=== PATIENT | male | born 1945 | race Hispanic/Latino ===

== ENCOUNTER 2018-08-07 00:19 | Emergency (ER) | payer OTHER, MEDICAID ==
--- OUTSIDE RECORDS SUMMARY | 2018-08-07 00:22 | XMS REPORT ---
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 urinary tract symptoms Problem Essential hypertension I10 Active Problem Stage 2 chronic kidney disease N18.2 Active Problem Other chronic pain G89.29 Active Problem Dorsalgia, unspecified M54.9 Active Problem Alcohol abuse F10.10 Active Problem Essential (primary) hypertension I10 Active Assessment Osteoarthritis of knee, unspecified M17.10 Active laterality, unspecified osteoarthritis type Assessment Essential (primary) hypertension I10 Active Problem Peripheral polyneuropathy G62.9 Active Assessment 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 urinary tract symptoms Problem Osteoarthritis of knee, unspecified M17.10 Active laterality, unspecified osteoarthritis type Assessment Stage 2 chronic kidney disease N18.2 Active Problem BPH loc w urin obs/LUTS N40.1 Active Medications Medication Code Code Instructions Start End Status Dosage System Date Date Losartan [facility] 44927097463 100-25 MG Active TAKE ONE Potassium-HCTZ TABLET BY MOUTH ONCE DAILY Amlodipine [facility] 31888354006 5MG Active TAKE ONE Besylate TABLET BY MOUTH ONCE DAILY Tamsulosin HCl [facility] 31721634244 0.4 MG Active TAKE ONE CAPSULE BY MOUTH ONCE DAILY Finasteride [facility] 26622552778 5MG Active TAKE ONE TABLET BY MOUTH ONCE DAILY Belsomra [facility] [id number] 10 MG Orally Apr 12, Active 1 tablet Once a day 2018 at bedtime as needed Results No Known Results Summary Purpose eClinicalWorks Submission
--- OUTSIDE RECORDS SUMMARY | 2018-08-07 00:22 | XMS REPORT ---
:1945 Author Organization eClinicalWorks Care Team Providers Name Role Phone Monty Flower Provider Role Unavailable Allergies, Adverse Reactions, Alerts Substance Reaction Event Type Lisinopril cough Drug Allergy Problems Problem Type Condition Code Onset Dates Condition Status Problem Osteoarthritis of knee, unspecified M17.10 Active laterality, unspecified osteoarthritis type Problem Major depressive disorder with F32.9 Active single episode, remission status unspecified Problem BPH loc w urin obs/LUTS N40.1 Active Problem Alcohol abuse F10.10 Active Problem Essential (primary) hypertension I10 Active Problem Essential hypertension I10 Active Problem Primary osteoarthritis of right knee M17.11 Active Problem Psychophysiological insomnia F51.04 Active Problem Other chronic pain G89.29 Active Problem Dorsalgia, unspecified M54.9 Active Assessment BPH loc w urin obs/LUTS N40.1 Active Assessment Essential hypertension I10 Active Assessment Psychophysiological insomnia F51.04 Active Problem 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 urinary tract symptoms Assessment Primary osteoarthritis of right knee M17.11 Active Problem Peripheral polyneuropathy G62.9 Active Medications Medication Code Code Instructions Start End Status Dosage System Date Date Amlodipine [facility] 55379538915 5MG Active TAKE ONE Besylate TABLET BY MOUTH ONCE DAILY Finasteride [facility] 16241623565 5MG Active TAKE ONE TABLET BY MOUTH ONCE DAILY Tamsulosin HCl [facility] 55094074402 0.4 MG Active TAKE ONE CAPSULE BY MOUTH ONCE DAILY Losartan [facility] 84296775117 100-25 MG Active TAKE ONE Potassium-HCTZ TABLET BY MOUTH ONCE DAILY Belsomra [facility] [id number] 10 MG Orally Apr 12, Active 1 tablet Once a day 2018 at bedtime as needed Results No Known Results Summary Purpose eClinicalWorks Submission
[2018-08-07] MEDS ORDERED: LIDOCAINE 1% W/EPI 1:100,000 MDV 50 ML VIAL ONE (01:49)
[2018-08-07] MEDS ORDERED: TETANUS & DIPHTHERIA TOX,ADULT 0.5 ML VIAL ONE (01:50)
--- NOTE | 2018-08-07 03:15 | EDPHYS ---
Physician Documentation [facility] Name: Puneet Willis Age: 73 yrs Sex: Male : 1945 Arrival Date: 08/07/2018 Time: 00:20 Bed 17 Private MD: ED Physician Froylan Juárez HPI: 08/07 03:28 This 73 yrs old Male presents to ER via EMS with complaints of Fall Injury. gs 03:28 Details of fall: The patient fell from an upright position, while standing. Onset: The gs symptoms/episode began/occurred acutely. Associated injuries: The patient sustained injury to the head, laceration, 2.5 cm(s). Severity of symptoms: At their worst the symptoms were moderate, in the emergency department the symptoms are unchanged. The patient has not experienced similar symptoms in the past. The patient has not recently seen a physician. Historical: - Allergies: 00:36 No Known Allergies; jd3 - Home Meds: 00:37 "blood pressure medication" [Active]; jd3 - PMHx: 00:36 Hypertension; Arthritis; jd3 - PSHx: 00:36 Prostate; jd3 - Immunization history:: Adult Immunizations unknown. - Social history:: Smoking status: unknown. - Ebola Screening: : Patient negative for fever greater than or equal to 101.5 degrees Fahrenheit, and additional compatible Ebola Virus Disease symptoms. ROS: 03:28 Cardiovascular: Negative for chest pain, palpitations. gs 03:28 Respiratory: Negative for pleurisy, shortness of breath. 03:28 All other systems are negative. Exam: 03:28 Eyes: Pupils equal round and reactive to light, extra-ocular motions intact. Lids and gs lashes normal. Conjunctiva and sclera are non-icteric and not injected. Cornea within normal limits. Periorbital areas with no swelling, redness, or edema. ENT: Nares patent. No nasal discharge, no septal abnormalities noted. Tympanic membranes are normal and external auditory canals are clear. Oropharynx with no redness, swelling, or masses, exudates, or evidence of obstruction, uvula midline. Mucous membranes moist. Neck: Trachea midline, no thyromegaly or masses palpated, and no cervical lymphadenopathy. Supple, full range of motion without nuchal rigidity, or vertebral point tenderness. No Meningismus. Chest/axilla: Normal chest wall appearance and motion. Nontender with no deformity. No lesions are appreciated. Cardiovascular: Regular rate and rhythm with a normal S1 and S2. No gallops, murmurs, or rubs. Normal PMI, no JVD. No pulse deficits. Respiratory: Lungs have equal breath sounds bilaterally, clear to auscultation and percussion. No rales, rhonchi or wheezes noted. No increased work of breathing, no retractions or nasal flaring. Abdomen/GI: Soft, non-tender, with normal bowel sounds. No distension or tympany. No guarding or rebound. No evidence of tenderness throughout. Skin: Warm, dry with normal turgor. Normal color with no rashes, no lesions, and no evidence of cellulitis. MS/ Extremity: Pulses equal, no cyanosis. Neurovascular intact. Full, normal range of motion. Neuro: Awake and alert, GCS 15, oriented to person, place, time, and situation. Cranial nerves II-XII grossly intact. Motor strength 5/5 in all extremities. Sensory grossly intact. Cerebellar exam normal. Normal gait. 03:28 Constitutional: The patient appears alert, awake. 03:28 Head/face: Noted is a laceration(s), that is deep, 2.5 cm(s). Vital Signs: 00:37 BP 153 / 99; Pulse 111; Resp 20 S; Temp 98.2(O); Pulse Ox 97% on R/A; Weight 90.72 kg jd3 (R); Height 5 ft. 6 in. (167.64 cm) (R); Pain 0/10; 01:47 BP 139 / 90; Pulse 97; Resp 20 S; Pulse Ox 96% on R/A; jd3 02:50 BP 135 / 95; Pulse 91; Resp 17 S; Pulse Ox 97% on R/A; jd3 03:20 BP 145 / 70; Pulse 80; Resp 19; Pulse Ox 99% ; ea 00:37 Body Mass Index 32.28 (90.72 kg, 167.64 cm) jd3 Laceration: 03:28 Wound Repair of 2.5cm ( 1.0in ) subcutaneous laceration to scalp. Distal gs neuro/vascular/tendon intact. Anesthesia: Local anesthetic administered with 3 mls of 1% lidocaine w/ Epi. Wound prep: Simple cleansing. Skin closed with 6 1-0 Kita using simple sutures and sterile technique. Patient tolerated well. MDM: 01:10 Patient medically screened. 03:28 Differential diagnosis: closed head injury, contusion, fracture, laceration. Data reviewed: vital signs, nurses notes. 08/07 00:40 Order name: CT Head C Spine gs Administered Medications: 01:45 Drug: Tetanus-Diphtheria Toxoid Adult 0.5 ml {Ground Water Technician: [employer]. Exp: jd3 09/20/2020. Lot #: [id number]. } Route: IM; Site: right deltoid; 03:20 Follow up: Response: No adverse reaction jd3 03:10 Drug: Lidocaine-Epinephrine -1%: (1:100,000) 5 ml {Note: administered by Dr. Natarajan.} jd3 Volume: 20 ml; Route: Infiltration; 03:20 Follow up: Response: No adverse reaction jd3 Disposition: 08/07/18 03:14 Discharged to Home. Impression: Laceration without foreign body of unspecified part of head, Laceration without foreign body of other part of head. - Condition is Stable. - Discharge Instructions: Laceration Care, Adult, [id number]. - Medication Reconciliation Form, Thank You Letter, Antibiotic Education, Prescription Opioid Use form. - Follow up: Private Physician; When: 7 - 10 days; Reason: Staple/Suture removal. Signatures: Dispatcher [employer] Kavitha Dougherty RN Froylan Rivera ea, MD MD gs Davies, Jonathon, RN RN jd3 Corrections: (The following items were deleted from the chart) 03:40 03:14 08/07/2018 03:14 Discharged to Home. Impression: Laceration without foreign body ea of unspecified part of head; Laceration without foreign body of other part of head. Condition is Stable. Forms are Medication Reconciliation Form, Thank You Letter, Antibiotic Education, Prescription Opioid Use. Follow up: Private Physician; When: 7 - 10 days; Reason: Staple/Suture removal. gs
--- NOTE | 2018-08-07 03:15 | ER ---
Nurse's Notes [facility] Name: Puneet Willis Age: 73 yrs Sex: Male : 1945 Arrival Date: 08/07/2018 Time: 00:20 Bed 17 Private MD: Diagnosis: Laceration without foreign body of unspecified part of head;Laceration without foreign body of other part of head Presentation: 08/07 00:34 Presenting complaint: EMS states: "He was getting food in the kitchen when he fell and jd3 hit the back of this head. No LOC or blood thinners.". Transition of care: patient was not received from another setting of care. Onset of symptoms was August 07, 2018. Risk Assessment: Do you want to hurt yourself or someone else? Patient reports no desire to harm self or others. Initial Sepsis Screen: Does the patient meet any 2 criteria? No. Patient's initial sepsis screen is negative. Does the patient have a suspected source of infection? No. Patient's initial sepsis screen is negative. Care prior to arrival: None. 00:34 Method Of Arrival: EMS: [facility] jd3 00:34 Acuity: MICHAELA 3 jd3 Historical: - Allergies: 00:36 No Known Allergies; jd3 - Home Meds: 00:37 "blood pressure medication" [Active]; jd3 - PMHx: 00:36 Hypertension; Arthritis; jd3 - PSHx: 00:36 Prostate; jd3 - Immunization history:: Adult Immunizations unknown. - Social history:: Smoking status: unknown. - Ebola Screening: : Patient negative for fever greater than or equal to 101.5 degrees Fahrenheit, and additional compatible Ebola Virus Disease symptoms. Screenin:40 Abuse screen: Denies threats or abuse. Nutritional screening: No deficits noted. jd3 Tuberculosis screening: No symptoms or risk factors identified. Fall Risk Fall in past 12 months (25 points). Ambulatory Aid- None/Bed Rest/Nurse Assist (0 pts). Gait- Normal/Bed Rest/Wheelchair (0 pts) Mental Status- Oriented to own ability (0 pts). Total Conde Fall Scale indicates Low Risk Score (25-44 pts). Fall prevention measures have been instituted. Side Rails Up X 2 Placed close to Nursing Station Frequent Obs/Assesments occuring. Assessment: 00:38 General: Appears in no apparent distress. uncomfortable, Behavior is calm, cooperative, jd3 appropriate for age. Pain: Denies pain. Neuro: Level of Consciousness is awake, alert, obeys commands, Oriented to person, place, time, situation. Cardiovascular: Capillary refill < 3 seconds Patient's skin is warm and dry. Respiratory: Airway is patent Respiratory effort is even, unlabored, Respiratory pattern is regular, symmetrical. GI: No signs and/or symptoms were reported involving the gastrointestinal system. : No signs and/or symptoms were reported regarding the genitourinary system. EENT: No signs and/or symptoms were reported regarding the EENT system. Derm: Skin is intact, Skin is dry, Skin is normal, Skin temperature is warm. Musculoskeletal: Circulation, motion, and sensation intact. Range of motion: intact in all extremities. Injury Description: Laceration sustained to left parietal area is 2.6 to 7.5 cm long, not bleeding, a small amount of bleeding noted at this time. 01:47 Reassessment: Patient appears in no apparent distress at this time. Patient and/or jd3 family updated on plan of care and expected duration. Pain level reassessed. Patient is alert, oriented x 3, equal unlabored respirations, skin warm/dry/pink. 02:50 Reassessment: Patient appears in no apparent distress at this time. Patient and/or jd3 family updated on plan of care and expected duration. Pain level reassessed. Patient is alert, oriented x 3, equal unlabored respirations, skin warm/dry/pink. 03:36 Reassessment: Patient and/or family updated on plan of care and expected duration. Pain ea level reassessed. Patient is alert, oriented x 3, equal unlabored respirations, skin warm/dry/pink. Discharge instructions given to patient, verbalized the understanding of instruction. Patient states symptoms have improved. Vital Signs: 00:37 BP 153 / 99; Pulse 111; Resp 20 S; Temp 98.2(O); Pulse Ox 97% on R/A; Weight 90.72 kg jd3 (R); Height 5 ft. 6 in. (167.64 cm) (R); Pain 0/10; 01:47 BP 139 / 90; Pulse 97; Resp 20 S; Pulse Ox 96% on R/A; jd3 02:50 BP 135 / 95; Pulse 91; Resp 17 S; Pulse Ox 97% on R/A; jd3 03:20 BP 145 / 70; Pulse 80; Resp 19; Pulse Ox 99% ; ea 00:37 Body Mass Index 32.28 (90.72 kg, 167.64 cm) jd3 ED Course: 00:20 Patient arrived in ED. ds1 00:23 Chema Fletcher RN is Primary Nurse. jd3 00:35 Triage completed. jd3 00:38 Arm band placed on. jd3 00:40 Froylan Juárez MD is Attending Physician. gs 00:41 Patient has correct armband on for positive identification. Bed in low position. Call j light in reach. Side rails up X2. 01:[address] via stretcher. kw1 01:32 CT Head C Spine In Process Unspecified. EDMS 01:34 CT completed. Patient tolerated procedure well. Patient moved back from CT. kw1 02:30 Assist provider with laceration repair on back of head that was between 2.6 to 7.5 cm ea using sutures. Set up tray. Performed by Chema Fletcher RN Dressed with Neosporin, Patient tolerated well. 03:37 Patient did not have IV access during this emergency room visit. ea Administered Medications: 01:45 Drug: Tetanus-Diphtheria Toxoid Adult 0.5 ml {Powder Worker: [employer]. Exp: jd3 09/20/2020. Lot #: [id number]. } Route: IM; Site: right deltoid; 03:20 Follow up: Response: No adverse reaction jd3 03:10 Drug: Lidocaine-Epinephrine -1%: (1:100,000) 5 ml {Note: administered by Dr. Juárez..} jd3 Volume: 20 ml; Route: Infiltration; 03:20 Follow up: Response: No adverse reaction jd3 Outcome: 03:14 Discharge ordered by . aruna 03:37 Discharged to home via wheelchair, with friend. ea 03:37 Condition: improved 03:37 Discharge instructions given to patient, Instructed on discharge instructions, follow up and referral plans. Demonstrated understanding of instructions, follow-up care. 03:40 Patient left the ED. ea Signatures: Dispatcher [facility] Cuca Nicole ds1 Kavitha Hassan RN RN ea Starr, Gregory, MD MD gs Davies, Jonathon, RN RN jd3 Kelly Carrera kw1 Corrections: (The following items were deleted from the chart) 03:40 03:39 BP 145 / 70; Pulse 80bpm; Resp 19bpm; Pulse Ox 99%; ea ea
[2018-08-07 04:22] VITALS: TEMP 98.2
[2018-08-07 04:26] VITALS: BP 145/70; O2SAT 99
--- NOTE | 2018-08-07 08:40 | RAD REPORT ---
EXAM DESCRIPTION: CT - [id number] - 08/07/2018 7:28 am CLINICAL HISTORY: Fall, head and neck injury A preliminary report was provided at the time of the study and reviewed prior to final report. COMPARISON: None. TECHNIQUE: Axial 5 mm thick images of the head were obtained. Axial 2 mm thick images of the cervic al spine were obtained with sagittal and coronal reconstruction images generated and reviewed. All CT scans are performed using dose optimization technique as appropriate and may include automated exposure control or mA/KV adjustment according to patient size. FINDINGS: No intracranial hemorrhage, mass, edema or acute intracranial finding. No cortical edema or sulcal ef facement. No extra-axial fluid collections. Mastoid air cells and paranasal sinuses are clear. No dunia be or orbit abnormality seen. Postsurgical changes are noted to the right frontal bone. Patient has u nderlying moderate severity atrophy and chronic ischemic change. Ventricles are in proportion to the volume loss. Cervical body height and alignment are normal. Mild disc space narrowing throughout the cervical spin e. Endplate spurring and uncovertebral joint hypertrophy are present. No fracture or acute bony abnor mality. Prominent facet joint degenerative changes are present. Mild foraminal encroachment at C4-5. No paraspinal mass or hematoma. IMPRESSION: Prominent atrophy and chronic ischemic change without an acute intracranial finding. Cervical spine degenerative change without fracture or acute finding.
== END 2018-08-07 03:40 | disposition home or self-care (01) ==
LOC: ER 00:19
PROC: 0JQ00ZZ Repair Scalp Subcutaneous Tissue and Fascia, Open Approach (ICD-10-PCS; principal; 2018-08-07)
DX: S01.01XA Laceration without foreign body of scalp, initial encounter (principal); I10 Essential (primary) hypertension; W01.0XXA Fall on same level from slipping, tripping and stumbling without subsequent striking against object, initial encounter; Y92.000 Kitchen of unspecified non-institutional (private) residence as the place of occurrence of the external cause; Z23 Encounter for immunization
CPT/HCPCS: 70450; 72125; 90714; 99284

== ENCOUNTER 2019-04-28 09:37 | Emergency (ER) | payer OTHER ==
--- OUTSIDE RECORDS SUMMARY | 2019-04-28 09:40 | XMS REPORT ---
:1945 Author Organization eClinicalWorks Care Team Providers Name Role Phone Monty Flower Provider Role Unavailable Allergies No Known Allergies Problems Problem Type Condition Code Onset Dates Condition Status Problem Major depressive disorder with F32.9 Active single episode, remission status unspecified Problem Primary osteoarthritis of right knee M17.11 Active Problem Psychophysiological insomnia F51.04 Active Problem Peripheral polyneuropathy G62.9 Active Problem Osteoarthritis of knee, unspecified M17.10 Active laterality, unspecified osteoarthritis type Problem BPH loc w urin obs/LUTS N40.1 Active Problem 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
[2019-04-28] MEDS ORDERED: KETOROLAC 30 MG/ML INJ ONE (10:17)
[2019-04-28] MEDS ORDERED: LIDOCAINE 1% 20 ML MDV ONE (10:31)
--- NOTE | 2019-04-28 10:46 | RAD REPORT ---
EXAM DESCRIPTION: RAD - Shoulder Left 2 View - 04/28/2019 10:28 am CLINICAL HISTORY: Fall, left shoulder pain COMPARISON: None. TECHNIQUE: Internal and external rotation views of the left shoulder were obtained. FINDINGS: Humeral head has been dislocated medial and inferior to the glenoid. This is typical for a nterior dislocation. A fracture of the humerus or glenoid not evident on these images. No AC joint separation. AC joint degenerative changes are present with inferiorly directed spur. IMPRESSION: Anterior dislocation of the left humerus without identifiable fracture.
--- NOTE | 2019-04-28 10:47 | RAD REPORT ---
EXAM DESCRIPTION: RAD - Knee Left 3 View - 04/28/2019 10:28 am CLINICAL HISTORY: Fall, left knee pain COMPARISON: May 2013 FINDINGS: No fracture, dislocation or periosteal reaction.No joint effusion seen. No joint space natanael rowing. Minimal degenerative spurring changes are present along the articular margins. No significant soft tissue abnormality seen. There does appear to be some contusion or bruising in th e subcutaneous fatty tissues. IMPRESSION: Mild for age degenerative change with no acute bone or joint finding. Clinical concerns for internal derangement or occult bony injury could be further assessed with MR im aging.
--- NOTE | 2019-04-28 10:48 | RAD REPORT ---
EXAM DESCRIPTION: RAD - Knee Right 3 View - 04/28/2019 10:28 am CLINICAL HISTORY: Fall, right knee pain COMPARISON: May 2013 FINDINGS: No fracture, dislocation or periosteal reaction.No joint effusion seen. No joint space natanael rowing. Minimal for age degenerative change present. No significant soft tissue finding seen. IMPRESSION: No acute bone or joint finding. Clinical concerns for internal derangement or occult bony injury could be further assessed with MR im aging.
[2019-04-28] MEDS ORDERED: KETAMINE HCL 500 MG/5 ML VIAL ONE (10:58)
[2019-04-28] MEDS ORDERED: ONDANSETRON 4 MG/2 ML VIAL ONE (11:05)
[2019-04-28] MEDS ORDERED: NA CHLORIDE 0.9% 500 ML ONE (11:05)
--- NOTE | 2019-04-28 11:51 | ER ---
Nurse's Notes [facility] Name: Puneet Willis Age: 73 yrs Sex: Male : 1945 Arrival Date: 04/28/2019 Time: 09:43 Bed 13 Private MD: Diagnosis: Unspecified dislocation of left shoulder joint-anterior Presentation: 04/28 09:37 Presenting complaint: EMS states: Family reports that the pt. fell getting off the rb1 couch, pt. reports falling trying to walk to the bathroom. Denies LOC. C/o left shoulder pain 05/16. A \\T\\ O x 4. 09:37 Acuity: [facility] 09:37 Transition of care: patient was not received from another setting of care. Onset of rb1 symptoms was April 28, 2019. Risk Assessment: Do you want to hurt yourself or someone else? Patient reports no desire to harm self or others. Initial Sepsis Screen: Does the patient meet any 2 criteria? No. Patient's initial sepsis screen is negative. Does the patient have a suspected source of infection? No. Patient's initial sepsis screen is negative. Care prior to arrival: None. 09:37 Method Of Arrival: EMS: [facility] 09:37 Mechanism of Injury: Fall. rb1 Historical: - Allergies: 09:37 No Known Allergies; rb1 - Home Meds: 09:37 "blood pressure medication" [Active]; rb1 - PMHx: 09:37 Arthritis; Hypertension; rb1 - PSHx: 09:37 Prostate; rb1 - Immunization history:: Adult Immunizations unknown. - Social history:: Patient/guardian denies using alcohol, street drugs, The patient lives with family, Smoking status: Patient/guardian denies using tobacco. - Ebola Screening: : Patient negative for fever greater than or equal to 101.5 degrees Fahrenheit, and additional compatible Ebola Virus Disease symptoms. - Family history:: not pertinent. Screenin:37 Abuse screen: Denies threats or abuse. Nutritional screening: No deficits noted. rb1 Tuberculosis screening: No symptoms or risk factors identified. Fall risk Intervention for positive screen: ED Physician notified, instructed to call for assist when getting up, side rails up. 09:37 Fall Risk Fall in past 12 months (25 points). Secondary diagnosis (15 points) impaired rb1 mobility, No IV (0 pts). Ambulatory Aid- Crutches/Cane/Walker (15 pts). Gait- Impaired (20 pts.). Mental Status- Oriented to own ability (0 pts). Total Conde Fall Scale indicates High Risk Score (45 or more points). Fall prevention measures have been instituted. Side Rails Up X 2 Placed Close to Nursing Station 1:1 Attendant Assigned Frequent Obs/Assessments Occuring As available patient and family educated on Fall Prevention Program and Strategies. Primary Survey: 09:37 NO uncontrolled hemorrhage observed. A: The patient is alert. Airway: patent. rb1 Breathing/Chest: Respiratory pattern: regular, Respiratory effort: spontaneous, unlabored, Breath sounds: clear, Chest inspection: symmetrical rise and fall of the chest. Circulation: Pulses: palpable right radial artery and left radial artery. Skin color: pink, Skin temperature: warm, dry. Disability Alert. Exposure/Environment: All clothing and personal items were removed. Forensic evidence collection is not deemed to be indicated at this time. Items placed in patient belonging bag. There is no evidence of uncontrolled external bleeding. 10:00 Reassessment Airway Airway Patent Breathing/Chest Respiratory pattern Regular rb1 Respiratory effort Spontaneous Unlabored Chest inspection Symmetrical Circulation Pulses Palpable Color [place] Temperature Warm Disability Alert. Secondary Survey: 09:37 HEENT: No deficits noted. Gastrointestinal: No deficits noted. : No deficits noted. rb1 Musculoskeletal: Range of motion: limited in left shoulder. Assessment: 09:37 General: Appears in no apparent distress. comfortable, Behavior is calm, cooperative. rb1 Pain: Complains of pain in left shoulder Pain currently is 10 out of 10 on a pain scale. Neuro: Level of Consciousness is awake, alert, obeys commands, Oriented to person, place, time, situation. Cardiovascular: Capillary refill < 3 seconds is brisk in bilateral fingers. Respiratory: Airway is patent Respiratory effort is even, unlabored, Respiratory pattern is regular, symmetrical. GI: No signs and/or symptoms were reported involving the gastrointestinal system. : No signs and/or symptoms were reported regarding the genitourinary system. Derm: Skin is pink, warm \\T\\ dry. abrasion noted to bilateral knees. Musculoskeletal: Range of motion: limited in left shoulder. 10:30 Reassessment: Patient appears in no apparent distress at this time. No changes from rb1 previously documented assessment. 11:15 Reassessment: Patient appears in no apparent distress at this time. Patient and/or rb1 family updated on plan of care and expected duration. Pain level reassessed. Patient is alert, oriented x 3, equal unlabored respirations, skin warm/dry/pink. Preparing to sedate the pt. to do a closed reduction of the left shoulder. 12:22 Reassessment: Patient appears in no apparent distress at this time. No changes from rb1 previously documented assessment. Pt. is calling for transportation home. Vital Signs: 09:37 BP 149 / 91; Pulse 103; Resp 19; Temp 98.3(O); Pulse Ox 99% on R/A; Weight 86.18 kg rb1 (R); Height 5 ft. 7 in. (170.18 cm) (R); Pain 10/10; 11:15 BP 115 / 72; Pulse 81; Resp 28; Temp 99.4(TE); Pulse Ox 96% on R/A; rb1 11:25 Pulse 84; Resp 14; Pulse Ox 91% on R/A; rb1 11:27 BP 164 / 95; Pulse 90; Resp 27; Pulse Ox 100% on 4 lpm NC; rb1 11:32 BP 133 / 87; Pulse 84; Resp 28; Pulse Ox 99% on 4 lpm NC; rb1 11:37 BP 136 / 75; Pulse 81; Resp 28; Pulse Ox 99% on 4 lpm NC; rb1 11:42 BP 137 / 83; Pulse 81; Resp 21; Pulse Ox 99% on 4 lpm NC; rb1 11:47 BP 135 / 76; Pulse 82; Resp 21; Pulse Ox 99% on 4 lpm NC; rb1 11:52 BP 133 / 74; Pulse 79; Resp 20; Pulse Ox 99% on 4 lpm NC; rb1 11:57 BP 139 / 78; Pulse 81; Resp 20; Pulse Ox 100% on 4 lpm NC; rb1 12:30 BP 135 / 75; Pulse 89; Resp 20; Temp 98.9(O); Pulse Ox 100% on 4 lpm NC; Pain 0/10; rb1 09:37 Body Mass Index 29.76 (86.18 kg, 170.18 cm) rb1 11:25 Initiated 4 L NC rb1 Flavio Coma Score: 09:37 Eye Response: spontaneous(4). Verbal Response: oriented(5). Motor Response: obeys rb1 commands(6). Total: 15. 10:30 Eye Response: spontaneous(4). Verbal Response: oriented(5). Motor Response: obeys rb1 commands(6). Total: 15. Trauma Score (Adult): 09:37 Eye Response: spontaneous(1); Verbal Response: oriented(1); Motor Response: obeys rb1 commands(2); Systolic BP: > 89 mm Hg(4); Respiratory Rate: 10 to 29 per min(4); [place] Score: 15; Trauma Score: 12 12:00 Eye Response: spontaneous(1); Verbal Response: oriented(1); Motor Response: obeys rb1 commands(2); Systolic BP: > 89 mm Hg(4); Respiratory Rate: 10 to 29 per min(4); Flavio Score: 15; Trauma Score: 12 ED Course: 09:37 Patient has correct armband on for positive identification. Bed in low position. Call rb1 light in reach. Side rails up X2. Patient maintains SpO2 saturation greater than 95% on room air. 09:37 Warm blanket given. rb1 09:37 Arm band placed on right wrist. rb1 09:37 Patient maintains SpO2 saturation greater than 95% on room air. rb1 09:37 Thermoregulation: warm blanket given to patient. rb1 09:43 Patient arrived in ED. em 09:44 Theron Carvajal MD is Attending Physician. ma2 09:45 Karissa Falcon, SONI is Primary Nurse. rb1 09:47 Triage completed. rb1 10:30 Knee Left 3 View XRAY In Process Unspecified. EDMS 10:30 Knee Right 3 View XRAY In Process Unspecified. EDMS 10:30 Shoulder Left (2 View) XRAY In Process Unspecified. EDMS 11:13 Inserted saline lock: 22 gauge in right antecubital area, using aseptic technique. rb1 Inserted by Sean Jiménez RN. 11:49 Thien Silva MD is Referral Physician. ma2 11:57 Assist provider with reduction of left shoulder using traction, manipulation, Set up rb1 for procedure. Performed by Theron Carvajal MD Immobilized with Reduction completed using conscious sedation (see conscious sedation flow sheet) Patient tolerated Initiated the conscious sedation at 1120 and completed at 1127. Closed monitoring until 1157 when pt became fully awake and oriented. 12:13 Shoulder 1 View In Process Unspecified. EDMS Administered Medications: 10:20 Drug: TORadol 60 mg Route: IM; Site: left gluteus; rb1 10:35 Follow up: Response: No adverse reaction rb1 11:15 Drug: Zofran 4 mg Route: IVP; Site: right antecubital; rb1 11:30 Follow up: Response: No adverse reaction rb1 11:20 Drug: Ketamine 42 mg Route: IVP; Site: right antecubital; rb1 11:35 Follow up: Response: No adverse reaction rb1 11:22 Drug: Ketorolac 42 mg Route: IVP; Site: right antecubital; rb1 11:35 Follow up: Response: No adverse reaction rb1 Intake: 12:30 IV: 250ml (IV Fluid); Total: 250ml. rb1 Outcome: 11:50 Discharge ordered by . isabel 12:41 Patient left the ED. rb1 12:41 Discharged to home ambulatory, with friend. rb1 12:41 Condition: stable 12:41 Discharge instructions given to patient, Instructed on discharge instructions, follow rb1 up and referral plans. medication usage, Demonstrated understanding of instructions, follow-up care, medications, Prescriptions given X 1. Signatures: Dispatcher [employer] Quang Harrell, ORDER PROCESSING MANAGER ORDER PROCESSING MANAGER Karissa Eldridge, RN RN rb1 Theron Carvajal MD MD ma2
--- NOTE | 2019-04-28 11:52 | EDPHYS ---
Physician Documentation [facility] Name: Puneet Willis Age: 73 yrs Sex: Male : 1945 Arrival Date: 04/28/2019 Time: 09:43 Bed 13 Private MD: ED Physician Theron Carvajal HPI: 04/28 11:39 This 73 yrs old Male presents to ER via EMS with complaints of Fall Injury, ma2 Left shoulder pain. 11:39 Details of fall: The patient fell from seated position. Onset: The symptoms/episode ma2 began/occurred suddenly, 1 hour(s) ago. Associated injuries: The patient sustained left arm. Severity of symptoms: At their worst the symptoms were severe, in the emergency department the symptoms are unchanged. The patient has not experienced similar symptoms in the past. tripped and fell. Historical: - Allergies: 09:37 No Known Allergies; rb1 - Home Meds: 09:37 "blood pressure medication" [Active]; rb1 - PMHx: 09:37 Arthritis; Hypertension; rb1 - PSHx: 09:37 Prostate; rb1 - Immunization history:: Adult Immunizations unknown. - Social history:: Patient/guardian denies using alcohol, street drugs, The patient lives with family, Smoking status: Patient/guardian denies using tobacco. - Ebola Screening: : Patient negative for fever greater than or equal to 101.5 degrees Fahrenheit, and additional compatible Ebola Virus Disease symptoms. - Family history:: not pertinent. ROS: 11:39 Constitutional: Negative for fever, chills, and weight loss. ma2 11:39 All other systems are negative. Exam: 11:39 Constitutional: This is a well developed, well nourished patient who is awake, alert, ma2 and in no acute distress. Head/Face: Normocephalic, atraumatic. Eyes: Pupils equal round and reactive to light, extra-ocular motions intact. Lids and lashes normal. Conjunctiva and sclera are non-icteric and not injected. Cornea within normal limits. Periorbital areas with no swelling, redness, or edema. ENT: Nares patent. No nasal discharge, no septal abnormalities noted. Tympanic membranes are normal and external auditory canals are clear. Oropharynx with no redness, swelling, or masses, exudates, or evidence of obstruction, uvula midline. Mucous membranes moist. Neck: Trachea midline, no thyromegaly or masses palpated, and no cervical lymphadenopathy. Supple, full range of motion without nuchal rigidity, or vertebral point tenderness. No Meningismus. Chest/axilla: Normal chest wall appearance and motion. Nontender with no deformity. No lesions are appreciated. Cardiovascular: Regular rate and rhythm with a normal S1 and S2. No gallops, murmurs, or rubs. Normal PMI, no JVD. No pulse deficits. Respiratory: Lungs have equal breath sounds bilaterally, clear to auscultation and percussion. No rales, rhonchi or wheezes noted. No increased work of breathing, no retractions or nasal flaring. Abdomen/GI: Soft, non-tender, with normal bowel sounds. No distension or tympany. No guarding or rebound. No evidence of tenderness throughout. Skin: Warm, dry with normal turgor. Normal color with no rashes, no lesions, and no evidence of cellulitis. MS/ Extremity: left shoulder dislocation, pain and ttp w limited rom, otherwise Pulses equal, no cyanosis. Neurovascular intact. Full, normal range of motion at elbow, wrist and other joints Neuro: Awake and alert, GCS 15, oriented to person, place, time, and situation. Cranial nerves II-XII grossly intact. Motor strength 5/5 in all extremities. Sensory grossly intact. Cerebellar exam normal. Normal gait. Vital Signs: 09:37 BP 149 / 91; Pulse 103; Resp 19; Temp 98.3(O); Pulse Ox 99% on R/A; Weight 86.18 kg rb1 (R); Height 5 ft. 7 in. (170.18 cm) (R); Pain 10/10; 11:15 BP 115 / 72; Pulse 81; Resp 28; Temp 99.4(TE); Pulse Ox 96% on R/A; rb1 11:25 Pulse 84; Resp 14; Pulse Ox 91% on R/A; rb1 11:27 BP 164 / 95; Pulse 90; Resp 27; Pulse Ox 100% on 4 lpm NC; rb1 11:32 BP 133 / 87; Pulse 84; Resp 28; Pulse Ox 99% on 4 lpm NC; rb1 11:37 BP 136 / 75; Pulse 81; Resp 28; Pulse Ox 99% on 4 lpm NC; rb1 11:42 BP 137 / 83; Pulse 81; Resp 21; Pulse Ox 99% on 4 lpm NC; rb1 11:47 BP 135 / 76; Pulse 82; Resp 21; Pulse Ox 99% on 4 lpm NC; rb1 11:52 BP 133 / 74; Pulse 79; Resp 20; Pulse Ox 99% on 4 lpm NC; rb1 11:57 BP 139 / 78; Pulse 81; Resp 20; Pulse Ox 100% on 4 lpm NC; rb1 12:30 BP 135 / 75; Pulse 89; Resp 20; Temp 98.9(O); Pulse Ox 100% on 4 lpm NC; Pain 0/10; rb1 09:37 Body Mass Index 29.76 (86.18 kg, 170.18 cm) rb1 11:25 Initiated 4 L NC rb1 [place] Coma Score: 09:37 Eye Response: spontaneous(4). Verbal Response: oriented(5). Motor Response: obeys rb1 commands(6). Total: 15. 10:30 Eye Response: spontaneous(4). Verbal Response: oriented(5). Motor Response: obeys rb1 commands(6). Total: 15. Trauma Score (Adult): 09:37 Eye Response: spontaneous(1); Verbal Response: oriented(1); Motor Response: obeys rb1 commands(2); Systolic BP: > 89 mm Hg(4); Respiratory Rate: 10 to 29 per min(4); [place] Score: 15; Trauma Score: 12 12:00 Eye Response: spontaneous(1); Verbal Response: oriented(1); Motor Response: obeys rb1 commands(2); Systolic BP: > 89 mm Hg(4); Respiratory Rate: 10 to 29 per min(4); Flavio Score: 15; Trauma Score: 12 Procedures: 11:39 Reduction: of the left shoulder, using traction, manipulation, Immobilized with ma2 shoulder immobilizer. Patient tolerated well. Post reduction film - reveals normal alignment. Moderate sedation: Pre-procedure assessment: the patient has been NPO 2 hour(s) prior to arrival, ASA physical classification: IV - severe disease that is life threatening, Airway assessment: able to hyperextend neck, able to maintain airway, Mallampati classification of tongue size: III - uvula can be visualized, but faucial pillars and soft palate are not appreciated, Monitoring during procedure: media monitor, continuous pulse oximetry, nurse at bedside at all times, Medications employed: Ketamine, Post-procedure assessment: the patient is mildly sedated, Respiratory status: even and unlabored. MDM: 09:44 Patient medically screened. ma2 11:39 Differential diagnosis: contusion, fracture, sprain, strain. Data reviewed: vital ma2 signs, nurses notes. Counseling: I had a detailed discussion with the patient and/or guardian regarding: the historical points, exam findings, and any diagnostic results supporting the discharge/admit diagnosis, the presence of at least one elevated blood pressure reading (>120/80) during this emergency department visit, the need for outpatient follow up. Response to treatment: the patient's symptoms have resolved after treatment. 04/28 09:54 Order name: Knee Left 3 View XRAY; Complete Time: 11:32 em 04/28 09:54 Order name: Knee Right 3 View XRAY; Complete Time: 11:32 em 04/28 09:54 Order name: Shoulder Left (2 View) XRAY; Complete Time: 11:32 em 04/28 12:06 Order name: Shoulder 1 View EDMS Administered Medications: 10:20 Drug: TORadol 60 mg Route: IM; Site: left gluteus; rb1 10:35 Follow up: Response: No adverse reaction rb1 11:15 Drug: Zofran 4 mg Route: IVP; Site: right antecubital; rb1 11:30 Follow up: Response: No adverse reaction rb1 11:20 Drug: Ketamine 42 mg Route: IVP; Site: right antecubital; rb1 11:35 Follow up: Response: No adverse reaction rb1 11:22 Drug: Ketorolac 42 mg Route: IVP; Site: right antecubital; rb1 11:35 Follow up: Response: No adverse reaction rb1 Disposition: 04/28/19 11:50 Discharged to Home. Impression: Unspecified dislocation of left shoulder joint - anterior. - Condition is Stable. - Discharge Instructions: Shoulder Dislocation, [id number]. - Prescriptions for Tylenol- Codeine #3 300-30 mg Oral Tablet - take 2 tablet by ORAL route every 6 hours As needed; 30 tablet. - Medication Reconciliation Form, Thank You Letter, Antibiotic Education, Prescription Opioid Use form. - Follow up: Thien Silva; When: Tomorrow; Reason: Continuance of care. Signatures: Dispatcher [employer] EDMS Quang Olson, CAREGIVER ASSISTED LIVING CAREGIVER ASSISTED LIVING Karissa Eldridge, RN RN rb1 Theron Carvajal MD MD ma2 Corrections: (The following items were deleted from the chart) 12:03 11:33 Shoulder Left 2 View+RAD.[email or web address].[email or web address] ordered. [facility] 12:41 11:50 04/28/2019 11:50 Discharged to Home. Impression: Unspecified dislocation of left rb1 shoulder joint - anterior. Condition is Stable. Discharge Instructions: Shoulder Dislocation, [id number]. Prescriptions for Tylenol-Codeine #3 300-30 mg Oral Tablet - take 2 tablet by ORAL route every 6 hours As needed; 30 tablet. and Forms are Medication Reconciliation Form, Thank You Letter, Antibiotic Education, Prescription Opioid Use. Follow up: Thien Silva; When: Tomorrow; Reason: Continuance of care. ma2
--- NOTE | 2019-04-28 12:35 | RAD REPORT ---
EXAM DESCRIPTION: RAD - Shoulder 1 View - 04/28/2019 11:54 am FINDINGS: Single view left shoulder was obtained following reduction maneuvers. Left humeral head is properly positioned relative to the glenoid. No fracture changes seen.
[2019-04-28 12:50] VITALS: TEMP 99.4
[2019-04-28 13:01] VITALS: BP 139/78; O2SAT 100
== END 2019-04-28 12:41 | disposition home or self-care (01) ==
LOC: ER 09:37
PROC: 0RSKXZZ Reposition Left Shoulder Joint, External Approach (ICD-10-PCS; principal; 2019-04-28)
DX: S43.005A Unspecified dislocation of left shoulder joint, initial encounter (principal); W07.XXXA Fall from chair, initial encounter; Y93.9 Activity, unspecified; Y92.9 Unspecified place or not applicable; I10 Essential (primary) hypertension
CPT/HCPCS: 73020; 73030; 73562 ×2; 96375; 96372; 96374; 99285; 23655; J2405

== ENCOUNTER 2019-09-25 11:22 | Emergency (ER) | payer OTHER ==
--- OUTSIDE RECORDS SUMMARY | 2019-09-25 11:25 | XMS REPORT ---
[...] Problem Essential (primary) hypertension I10 Active Medications Medication Code Code Instructions Start End Status Dosage System Date Date Tamsulosin HCl [facility] [id number] 0.4 MG Orally Active 1 capsule Once a day Results No Known Results Summary Purpose eClinicalWorks Submission
--- NOTE | 2019-09-25 12:37 | RAD REPORT ---
EXAM DESCRIPTION: RAD - Shoulder Right 2 View - 09/25/2019 12:24 pm CLINICAL HISTORY: PAIN COMPARISON: Shoulder Right 2 View dated 07/19/2017 FINDINGS: Subcoracoid anterior dislocation of the humeral head is seen. Moderate AC joint degenerati ve changes. No acute fracture evident.
--- NOTE | 2019-09-25 12:38 | RAD REPORT ---
EXAM DESCRIPTION: RAD - Humerus Right - 09/25/2019 12:24 pm CLINICAL HISTORY: PAIN COMPARISON: Humerus Right dated 07/19/2017; Humerus Right dated 12/05/2016 FINDINGS: Subcoracoid anterior dislocation is seen involving the right humeral head. A fracture is n ot apparent.
--- NOTE | 2019-09-25 12:39 | RAD REPORT ---
EXAM DESCRIPTION: RAD - Elbow Right 3 View - 09/25/2019 12:26 pm CLINICAL HISTORY: PAIN COMPARISON: No comparisons FINDINGS: Small olecranon spur is seen. No acute fracture or dislocation evident.
[2019-09-25] MEDS ORDERED: ONDANSETRON 4 MG/2 ML VIAL ONE (12:43)
[2019-09-25] MEDS ORDERED: FENTANYL CITR 100 MCG/2 ML ONE (12:43)
[2019-09-25] MEDS ORDERED: MEPERIDINE HCL 25 MG/0.5 ML ONE (12:59)
[2019-09-25] MEDS ORDERED: LIDOCAINE 1% 20 ML MDV ONE (13:48)
--- NOTE | 2019-09-25 14:07 | RAD REPORT ---
EXAM DESCRIPTION: RAD - Shoulder Right 2 View - 09/25/2019 1:47 pm CLINICAL HISTORY: PAIN COMPARISON: Shoulder Right 2 View dated 09/25/2019 FINDINGS: Subcoracoid dislocation of the humeral head persists. AC joint degenerative changes are pr esent. A fracture not seen.
--- NOTE | 2019-09-25 14:33 | ER ---
Nurse's Notes [facility] Name: Puneet Willis Age: 74 yrs Sex: Male : 1945 Arrival Date: 09/25/2019 Time: : Bed 26 Private MD: Diagnosis: Other dislocation of right shoulder joint-reduced Presentation: 09/25 11:26 Presenting complaint: EMS states: Fell on Monday, probably from intoxication. C/O R ca1 arm pain to the R shoulder. Difficulty lifting R arm. Transition of care: patient was not received from another setting of care. Onset of symptoms was September 25, 2019. Risk Assessment: Do you want to hurt yourself or someone else? Patient reports no desire to harm self or others. Initial Sepsis Screen: Does the patient meet any 2 criteria? No. Patient's initial sepsis screen is negative. Does the patient have a suspected source of infection? No. Patient's initial sepsis screen is negative. Care prior to arrival: None. 11: Method Of Arrival: EMS: [facility] ca1 Acuity: MICHAELA 3 iw Historical: - Allergies: 11: No Known Allergies; ca1 - Home Meds: 11: amlodipine oral [Active]; tamsulosin oral oral [Active]; ca1 - PMHx: 11: Arthritis; Hypertension; ca1 - PSHx: 11: Prostate; ca1 - Immunization history:: Adult Immunizations up to date. - Coronavirus screen:: The patient has NOT traveled to [place] in the past 14 days. The patient has NOT had contact with known/suspected case of Coronavirus?. - Social history:: Smoking status: Patient denies any tobacco usage or history of. - Ebola Screening: : Patient negative for fever greater than or equal to 101.5 degrees Fahrenheit, and additional compatible Ebola Virus Disease symptoms Patient denies exposure to infectious person Patient denies travel to an Ebola-affected area in the 21 days before illness onset No symptoms or risks identified at this time. Screenin:29 Abuse screen: Denies threats or abuse. Denies injuries from another. Nutritional ca1 screening: No deficits noted. Tuberculosis screening: No symptoms or risk factors identified. Fall Risk Fall in past 12 months (25 points). Assessment: 11:29 General: Appears in no apparent distress. comfortable, Behavior is calm, cooperative, ca1 appropriate for age. Pain: Complains of pain in right arm. Neuro: Level of Consciousness is awake, alert, obeys commands, Oriented to person, place, time, situation, Appropriate for age. Derm: Skin is intact, is healthy with good turgor, Skin is pink, warm \T\ dry. Musculoskeletal: Circulation, motion, and sensation intact. Capillary refill < 3 seconds, Range of motion: limited in right shoulder. 12:30 Reassessment: Patient appears in no apparent distress at this time. No changes from ca1 previously documented assessment. Patient and/or family updated on plan of care and expected duration. Pain level reassessed. Patient is alert, oriented x 3, equal unlabored respirations, skin warm/dry/pink. 13:30 Reassessment: Patient appears in no apparent distress at this time. Patient is alert, ca1 oriented x 3, equal unlabored respirations, skin warm/dry/pink. 14:30 Reassessment: Patient appears in no apparent distress at this time. Patient is alert, ca1 oriented x 3, equal unlabored respirations, skin warm/dry/pink. Vital Signs: 11:29 BP 147 / 98; Pulse 97; Resp 19 S; Temp 97.9(O); Pulse Ox 100% on R/A; ca1 12:57 BP 126 / 67; Pulse 89; Resp 18; Pulse Ox 100% on R/A; mg2 13:26 BP 142 / 81; Pulse 80; Resp 18; Pulse Ox 96% on R/A; mg2 14:30 BP 124 / 89; Pulse 88; Resp 17 S; Pulse Ox 95% on R/A; ca1 ED Course: 11:26 Patient arrived in ED. ca1 11:28 Triage completed. ca1 11:29 Arm band placed on right wrist. ca1 11:29 Patient has correct armband on for positive identification. Bed in low position. Call ca1 light in reach. Side rails up X2. Pulse ox on. NIBP on. 11:32 [facility]C [facility]. kb 11:32 Imer Root MD is Attending Physician. kb 11:34 EKG done, by biology specimen technician. reviewed by Torie SHARMA. at1 11:57 Celeste Toscano, SONI is Primary Nurse. ca1 12:29 Humerus Right XRAY In Process Unspecified. EDMS 12:29 Shoulder Right (2 View) XRAY In Process Unspecified. EDMS 12:30 Elbow Right 3 View XRAY In Process Unspecified. EDMS 12:48 Inserted saline lock: 20 gauge in left forearm, using aseptic technique. mg2 13:27 Assist provider with reduction of right shoulder using manipulation, Set up for mg2 procedure. Performed by Imer Root MD Immobilized with sling, Patient tolerated well. 13:56 Shoulder Right (2 View) XRAY In Process Unspecified. EDMS 14:37 XRAY Shoulder RIGHT 2 view In Process Unspecified. EDMS 14:48 IV discontinued, intact, bleeding controlled, No redness/swelling at site. Pressure ca1 dressing applied. Administered Medications: 12:48 Drug: fentaNYL (PF) 50 mcg Route: IVP; Site: left forearm; mg2 13:22 Follow up: Response: No adverse reaction mg2 14:00 Follow up: Response: No adverse reaction; Pain is decreased ca1 12:48 Drug: Zofran 4 mg Route: IVP; Site: left forearm; mg2 13:22 Follow up: Response: No adverse reaction mg2 14:52 Follow up: Response: Medication administered at discharge. ca1 12:56 Drug: Demerol 25 mg Route: IVP; Site: left forearm; mg2 13:21 Follow up: Response: No adverse reaction mg2 14:52 Follow up: Response: No adverse reaction ca1 13:58 Drug: fentaNYL (PF) 50 mcg Route: IVP; Site: left forearm; mg2 14:20 Follow up: Response: No adverse reaction; Pain is decreased; RASS: Alert and Calm (0) ca1 Outcome: 14:32 Discharge ordered by . kb 14:50 Discharged to home ambulatory. ca1 14:50 Condition: stable 14:50 Discharge instructions given to patient, Pt said, his daughter is picking him up from the ER Instructed on discharge instructions, follow up and referral plans. Demonstrated understanding of instructions, follow-up care. 14:56 Patient left the ED. ca1 Signatures: Dispatcher [employer] Torie Bridges, WOOD MACHINIST APPRENTICE-C WOOD MACHINIST APPRENTICE-Maribel Montes RN RN iw Sarahy Gill, digital marketing specialist EKG Tat1 Venkata Unger RN RN mg2 Celeste Toscano RN RN ca1 Corrections: (The following items were deleted from the chart) 12:23 11:26 Acuity: MICHAELA 4 ca1 iw 13:27 11:29 No provider procedures requiring assistance completed. ca1 mg2
--- NOTE | 2019-09-25 14:34 | EDPHYS ---
Physician Documentation [facility] Name: Puneet Willis Age: 74 yrs Sex: Male : 1945 Arrival Date: 09/25/2019 Time: 11:26 Bed 26 Private MD: ED Physician Imer Root HPI: 09/25 11:46 This 74 yrs old Male presents to ER via EMS with complaints of shoulder pain. kb 11:46 The patient or guardian complains of decreased range of motion, an injury, pain, kb tenderness. right shoulder. Context: The problem was sustained at home, resulted from a fall, The patient experiences decreased range of motion, The patient notes a deformity, an anterior fullness. Onset: The symptoms/episode began/occurred 5 day(s) ago. Modifying factors: the symptoms are alleviated by nothing. The symptoms are aggravated by movement. Associated signs and symptoms: The patient has no apparent associated signs or symptoms. Severity of symptoms: At their worst the symptoms were moderate, in the emergency department the symptoms are unchanged. Treatment prior to arrival includes: no previous treatment. The patient has not experienced similar symptoms in the past. The patient has not recently seen a physician. Pt reports pain to right shoulder and upper arm that started after falling directly onto it on Monday. States he didn't want to come in, but the pain hasn't gotten any better. Historical: - Allergies: 11:29 No Known Allergies; ca1 - Home Meds: 11:29 amlodipine oral [Active]; tamsulosin oral oral [Active]; ca1 - PMHx: 11:29 Arthritis; Hypertension; ca1 - PSHx: 11:29 Prostate; ca1 - Immunization history:: Adult Immunizations up to date. - Coronavirus screen:: The patient has NOT traveled to [place] in the past 14 days. The patient has NOT had contact with known/suspected case of Coronavirus?. - Social history:: Smoking status: Patient denies any tobacco usage or history of. - Ebola Screening: : Patient negative for fever greater than or equal to 101.5 degrees Fahrenheit, and additional compatible Ebola Virus Disease symptoms Patient denies exposure to infectious person Patient denies travel to an Ebola-affected area in the 21 days before illness onset No symptoms or risks identified at this time. ROS: 11:46 Constitutional: Negative for fever, chills, and weight loss, ENT: Negative for injury, kb pain, and discharge, Neck: Negative for injury, pain, and swelling, Cardiovascular: Negative for chest pain, palpitations, and edema, Respiratory: Negative for shortness of breath, cough, wheezing, and pleuritic chest pain, Abdomen/GI: Negative for abdominal pain, nausea, vomiting, diarrhea, and constipation, Back: Negative for injury and pain, Skin: Negative for injury, rash, and discoloration, Neuro: Negative for headache, weakness, numbness, tingling, and seizure. 11:46 MS/extremity: Positive for injury or acute deformity, decreased range of motion, pain, tenderness, of the right shoulder and right arm. Exam: 11:44 Constitutional: This is a well developed, well nourished patient who is awake, alert, kb and in no acute distress. Head/Face: Normocephalic, atraumatic. Chest/axilla: Normal chest wall appearance and motion. Nontender with no deformity. No lesions are appreciated. Cardiovascular: Regular rate and rhythm with a normal S1 and S2. No gallops, murmurs, or rubs. Normal PMI, no JVD. No pulse deficits. Respiratory: Lungs have equal breath sounds bilaterally, clear to auscultation and percussion. No rales, rhonchi or wheezes noted. No increased work of breathing, no retractions or nasal flaring. Abdomen/GI: Soft, non-tender, with normal bowel sounds. No distension or tympany. No guarding or rebound. No evidence of tenderness throughout. Back: No spinal tenderness. No costovertebral tenderness. Full range of motion. Skin: Warm, dry with normal turgor. Normal color with no rashes, no lesions, and no evidence of cellulitis. Neuro: Awake and alert, GCS 15, oriented to person, place, time, and situation. Cranial nerves II-XII grossly intact. Motor strength 5/5 in all extremities. Sensory grossly intact. Cerebellar exam normal. Normal gait. 11:44 ECG was reviewed by the Attending Physician. 11:44 Musculoskeletal/extremity: Extremities: grossly normal except: noted in the right shoulder and right arm: decreased ROM, pain, tenderness, ROM: limited passive range of motion due to pain, in the right shoulder and right arm, Circulation is intact in all extremities. Sensation intact. Vital Signs: 11:29 BP 147 / 98; Pulse 97; Resp 19 S; Temp 97.9(O); Pulse Ox 100% on R/A; ca1 12:57 BP 126 / 67; Pulse 89; Resp 18; Pulse Ox 100% on R/A; mg2 13:26 BP 142 / 81; Pulse 80; Resp 18; Pulse Ox 96% on R/A; mg2 14:30 BP 124 / 89; Pulse 88; Resp 17 S; Pulse Ox 95% on R/A; ca1 Procedures: 14:24 Reduction: of the right shoulder, using traction, manipulation, Immobilized with sling, rn Patient tolerated well. Post reduction film - reveals normal alignment. Joint Treatment: injection of right shoulder using Lidocaine, 22g spinal needle. Patient tolerated well. of right shoulder 8 cc 1% lidocaine without epinephrine injected into right shoulder following betadine prep, for anesthesia preceding shoulder reduction. Time out performed for reduction of right shoulder dislocation.. MDM: 11:32 Patient medically screened. kb 11:46 Differential diagnosis: Anterior dislocation with fracture, Anterior dislocation kb without fracture, Posterior dislocation with fracture, Posterior dislocation without fracture, humeral head fracture. Data reviewed: vital signs, nurses notes, radiologic studies. 14:30 Counseling: I had a detailed discussion with the patient and/or guardian regarding: the kb historical points, exam findings, and any diagnostic results supporting the discharge/admit diagnosis, radiology results, the need for outpatient follow up, a orthopedic surgeon, to return to the emergency department if symptoms worsen or persist or if there are any questions or concerns that arise at home. 09/25 11:42 Order name: Humerus Right XRAY; Complete Time: 13:31 kb 09/25 11:42 Order name: Shoulder Right (2 View) XRAY; Complete Time: 13:31 kb 09/25 12:18 Order name: Elbow Right 3 View XRAY; Complete Time: 13:31 kb 09/25 13:19 Order name: Shoulder Right (2 View) XRAY kb 09/25 12:29 Order name: IV Start; Complete Time: 12:48 kb 09/25 13:19 Order name: Sling; Complete Time: 13:21 kb 09/25 14:03 Order name: XRAY Shoulder RIGHT 2 view rn EC:44 Rate is 86 beats/min. Rhythm is regular, Normal Sinus Rhythm. Left axis deviation kb noted. IA interval is normal at 148 msec. QRS interval is normal at 76 msec. QT interval is normal at 378 msec. Administered Medications: 12:48 Drug: fentaNYL (PF) 50 mcg Route: IVP; Site: left forearm; mg2 13:22 Follow up: Response: No adverse reaction mg2 14:00 Follow up: Response: No adverse reaction; Pain is decreased ca1 12:48 Drug: Zofran 4 mg Route: IVP; Site: left forearm; mg2 13:22 Follow up: Response: No adverse reaction mg2 14:52 Follow up: Response: Medication administered at discharge. ca1 12:56 Drug: Demerol 25 mg Route: IVP; Site: left forearm; mg2 13:21 Follow up: Response: No adverse reaction mg2 14:52 Follow up: Response: No adverse reaction ca1 13:58 Drug: fentaNYL (PF) 50 mcg Route: IVP; Site: left forearm; mg2 14:20 Follow up: Response: No adverse reaction; Pain is decreased; RASS: Alert and Calm (0) ca1 Disposition: 15:05 Co-signature as Attending Physician, Imer Root MD. rn Disposition: 09/25/19 14:32 Discharged to Home. Impression: Other dislocation of right shoulder joint - reduced. - Condition is Stable. - Discharge Instructions: Shoulder Dislocation, [id number]. - Medication Reconciliation Form, Thank You Letter, Antibiotic Education, Prescription Opioid Use form. - Follow up: Emergency Department; When: As needed; Reason: Worsening of condition. Follow up: Private Physician; When: 2 - 3 days; Reason: Recheck today's complaints, Continuance of care, Re-evaluation by your physician. Signatures: Dispatcher [employer] EDLA Torie Chacon, CENTRIFUGE OPERATOR-C CENTRIFUGE OPERATOR-CkImer Sutton MD MD rn Gardose, Michele, RN RN mg2 Celeste Toscano RN RN ca1 Corrections: (The following items were deleted from the chart) 12:25 11:43 Elbow Left 3 View+RAD.RAD.BRZ ordered. EDMS EDMS 14:12 14:03 Shoulder Right 2 View+RAD.RAD.BRZ ordered. EDLA EDMS 14:32 14:32 09/25/2019 14:32 Discharged to Home. Impression: Other dislocation of right kb shoulder joint. Condition is Stable. Forms are Medication Reconciliation Form, Thank You Letter, Antibiotic Education, Prescription Opioid Use. Follow up: Emergency Department; When: As needed; Reason: Worsening of condition. Follow up: Private Physician; When: 2 - 3 days; Reason: Recheck today's complaints, Continuance of care, Re-evaluation by your physician. kb 14:56 14:32 09/25/2019 14:32 Discharged to Home. Impression: Other dislocation of right ca1 shoulder joint - reduced. Condition is Stable. Forms are Medication Reconciliation Form, Thank You Letter, Antibiotic Education, Prescription Opioid Use. Follow up: Emergency Department; When: As needed; Reason: Worsening of condition. Follow up: Private Physician; When: 2 - 3 days; Reason: Recheck today's complaints, Continuance of care, Re-evaluation by your physician. kb
--- NOTE | 2019-09-25 14:35 | RAD REPORT ---
EXAM DESCRIPTION: RAD - Shoulder Right 2 View - 09/25/2019 2:28 pm CLINICAL HISTORY: post reduction COMPARISON: Shoulder Right 2 View dated 09/25/2019 FINDINGS: Previously noted dislocation of the humeral head has been reduced. Moderate AC joint degen erative changes. No acute fracture seen.
[2019-09-25 15:18] VITALS: TEMP 97.9
[2019-09-25 15:22] VITALS: BP 124/89; O2SAT 95
--- NOTE | 2019-09-26 11:12 | EKG ---
Test Date: 2019-09-25 Test Time: 11:34:34 Operations Research Engineer: STEPHAN MEASUREMENT RESULTS: Intervals: Rate: 86 FL: 148 QRSD: 76 QT: 378 QTc: 452 Holcomb: P: 33 FL: 148 QRS: -22 T: -8 INTERPRETIVE STATEMENTS: Normal sinus rhythm Normal ECG Compared to ECG 06/01/2015 08:44:08 No significant changes Electronically Signed On 09-26-19 11:11:14 AIRCRAFT MAINTENANCE TECHNICIAN by Roman Lee
== END 2019-09-25 14:56 | disposition home or self-care (01) ==
LOC: ER 11:22
PROC: 0RSJXZZ Reposition Right Shoulder Joint, External Approach (ICD-10-PCS; principal; 2019-09-25)
DX: S43.014A Anterior dislocation of right humerus, initial encounter (principal); W18.30XA Fall on same level, unspecified, initial encounter; Y93.9 Activity, unspecified; Y92.9 Unspecified place or not applicable
CPT/HCPCS: 93005; 73080; 73060; 73030 ×3; 96375; 96374; 99284; 23655; J3010; J2175; J2405

== ENCOUNTER 2019-12-09 09:49 | Emergency (ER) | payer OTHER, MEDICAID ==
[2019-12-09] MEDS ORDERED: HYDROCODONE/APAP 5/325 MG TAB ONE (10:16)
--- OUTSIDE RECORDS SUMMARY | 2019-12-09 10:54 | XMS REPORT ---
:1945 Author Organization eClinicalWorks Care Team Providers Name Role Phone Monty Flower Provider Role Unavailable Allergies No Known Allergies Problems Problem Type Condition Code Onset Dates Condition Statu s Problem Major depressive disorder with F32.9 Active single episode, remission status unspecified Problem Primary osteoarthritis of right knee M17.11 Active Problem Psychophysiological insomnia F51.04 Active Problem Peripheral polyneuropathy G62.9 Ac tive Problem Osteoarthritis of knee, unspecified M17.10 Active laterality, unspecified osteoarthritis type Problem BPH loc w urin obs/LUTS N40.1 Acti ve Problem 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
--- OUTSIDE RECORDS SUMMARY | 2019-12-09 10:54 | XMS REPORT ---
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 urinary tract symptoms Problem BPH loc w urin obs/LUTS N40.1 Acti ve Medications Medication Code Code Instructions Start End Status Dosage System Date Date Amlodipine [facility] 40459385953 10 MG Orally Active take one Besylate Once a day tablet by mouth once daily Tamsulosin HCl [facility] 24805333333 0.4 MG Orally January Active 1 capsule Once a day 2019 Belsomra [facility] 17606849298 10 MG Orally Apr 12, Active 1 tab let Once a day 2017 at bedtime as needed Finasteride ND 01768677481 5MG Orally Once Active 1 tablet a day Donepezil HCl ND 95768205130 10 MG Orally February 22, Active 1 tablet Once a day 2018 at bedtime Losartan ND 71587839670 100-25 MG Orally Active ta ke 1 Potassium-HCTZ Once a day tablet by mouth every day Results No Known Results Summary Purpose eClinicalWorks Submission
--- OUTSIDE RECORDS SUMMARY | 2019-12-09 10:54 | XMS REPORT ---
[...] obstruction/lower N40.0 Active urinary tract symptoms Assessment Establishing care with new doctor, Z76.89 Active encounter for Problem Essential hypertension I10 Activ e Problem Stage 2 chronic kidney disease N18.2 Active Problem Other chronic pain G89.29 Active Problem Dorsalgia, unspecified M54.9 Activ e Problem Alcohol abuse F10.10 Active Problem Essential (primary) hypertension I10 Active Assessment Psychophysiological insomnia F51.04 Active Assessment Other chronic pain G89.29 Active Assessment Edema leg R60.0 Active Assessment Cough R05 Active Problem Peripheral polyneuropathy G62.9 Ac tive Assessment Essential (primary) hypertension I10 Active Problem Osteoarthritis of knee, unspecified M17.10 Active laterality, unspecified osteoarthritis type Assessment 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 urinary tract symptoms Problem BPH loc w urin obs/LUTS N40.1 Acti ve Medications Medication Code Code Instructions Start End Status Dosage System Date Date Amlodipine [facility] 95388527231 10 MG Orally Active take one Besylate Once a day tablet by mouth once daily Finasteride [facility] 94734029795 5MG Orally Once Active 1 tablet a day Tamsulosin HCl [facility] 44727449802 0.4 MG Orally January Active 1 capsule Once a day 2019 Donepezil HCl ND 32813769663 10 MG Orally February 22, Active 1 tablet Once a day 2019 at bedtime Belsomra ND 89815610987 10 MG Orally Apr 12, Active 1 tab let Once a day 2018 at bedtime as needed Losartan [facility] 27989449312 100-25 MG Orally Active ta ke 1 Potassium-HCTZ Once a day tablet by mouth every day Results No Known Results Summary Purpose eClinicalWorks Submission
--- OUTSIDE RECORDS SUMMARY | 2019-12-09 10:54 | XMS REPORT ---
[...] Problem Essential (primary) hypertension I10 Active Problem Peripheral polyneuropathy G62.9 Ac tive Problem Osteoarthritis of knee, unspecified M17.10 Active laterality, unspecified osteoarthritis type Assessment Localized edema R60.0 Active Problem BPH loc w urin obs/LUTS N40.1 Acti ve Medications Medication Code Code Instructions Start End Status Dosage System Date Date Belsomra [facility] 58423081459 10 MG Orally Apr 12, Active 1 tab let Once a day 2017 at bedtime as needed Losartan ND 84285198451 100-25 MG Active take 1 Potassium-HCTZ Orally Once a tab let by day mouth every day Metformin HCl ND 49289976453 500 MG Orally November Active 1 tablet daily with 2019 with a dinner meal Finasteride ND 29488978076 5MG Orally Once Active 1 tablet a day Amlodipine ND 61026993808 10 MG Orally Inactive antonette e one Besylate Once a day tablet by mouth once daily Tamsulosin HCl ND 61037537030 0.4 MG Orally January Active 1 capsule Once a day 2019 Donepezil HCl ND 02600736720 10 MG Orally February 22, Active 1 tablet Once a day 2018 at bedtime Results No Known Results Summary Purpose eClinicalWorks Submission
--- OUTSIDE RECORDS SUMMARY | 2019-12-09 10:54 | XMS REPORT ---
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 disorder with single with single episode, episode, remission remission status status unspecified unspecified BPH loc w BPH loc w Problem Active urin urin obs/LUTS obs/LUTS Alcohol Alcohol Problem Active abuse abuse Essential Essential Problem Active (primary) (primary) hypertensio hypertensio n n Primary Primary Problem 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 Psychophysi Psychophysi Problem Active ological ological insomnia insomnia Other Other Problem Active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 pain pain Dorsalgia, Dorsalgia, Problem Active unspecified unspecified BPH without BPH without Problem Active obstruction obstruction /lower /lower urinary urinary tract tract symptoms symptoms 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 Clinician (SIG) Name Name Metformin Metformin 2019-0 Yes Ly 1 tablet HCl HCl 4-17 M[place]ra with a 00:00: meal 00 Donepezil Donepezil 2018-0 Yes Ly 1 tablet HCl HCl 7-19 M[place] at bedtime 00:00: 00 Belsomra Belsomra 2017-0 Yes Ly 1 tablet 9-06 Moura at bedtime 00:00: as needed 00 Amlodipine Amlodipine Yes Ly take one Besylate Besylate Moura tablet by mouth once daily Finasteride Finasteride Yes Ly 1 table t M[place] Losartan Losartan Yes Ly take 1 Potassium-H Potassium-H Moura tablet b y CTZ CTZ mouth every day Tamsulosin Tamsulosin 2019- No Ly 1 capsule HCl HCl 01-18 Moura 00:00 :00 Encounters Start End Encounter Admission Attending Care Care Encounter Date/Time Date/Time Type Type Clinicians Facility Department ID 2019-11-22 2019-11-22 [id number] 15:20:00 15:20:00 [facility] 2019-11-04 2019-11-04 [facility] [id number] 10:00:00 10:00:00 [facility] 2019-10-21 2019-10-21 [facility] [id number] 10:00:00 10:00:00 [facility] 2019-05-24 2019-05-24 [facility] [id number] 16:27:00 16:27:00 [facility] 2019-02-25 2019-02-25 [facility] [id number] 09:47:00 09:47:00 [facility] 2019-02-22 2019-02-22 [facility] [id number] 08:30:00 08:30:00 [facility] 2019-01-15 2019-01-15 [facility] [id number] 16:02:00 16:02:00 [facility] 2018-11-19 2018-11-19 [facility] [id number] 11:15:00 11:15:00 [facility] 2018-05-15 2018-05-15 [facility] [id number] 13:15:00 13:15:00 [facility] 2018-04-12 2018-04-12 [facility] [id number] 13:00:00 13:00:00 [facility]
--- NOTE | 2019-12-09 11:05 | RAD REPORT ---
EXAM DESCRIPTION: RAD - Shoulder Right 2 View - 12/09/2019 10:35 am CLINICAL HISTORY: Right shoulder pain FINDINGS: Anterior humeral head dislocation. No fracture visualized
[2019-12-09] MEDS ORDERED: FENTANYL CITR 100 MCG/2 ML ONE (11:21)
[2019-12-09] MEDS ORDERED: DIAZEPAM 5 MG TABLET ONE (11:21)
--- NOTE | 2019-12-09 11:27 | RAD REPORT ---
EXAM DESCRIPTION: Nasrat Single View12/09/2019 11:15 am CLINICAL HISTORY: Chest pain COMPARISON: October 2019 FINDINGS: Old rib fractures are present. The lungs appear clear of acute infiltrate. The heart is normal size. Anterior right shoulder dislocation
[2019-12-09] MEDS ORDERED: MIDAZOLAM HCL 2 MG/2 ML INJ ONE (12:20)
[2019-12-09] MEDS ORDERED: KETAMINE HCL 500 MG/5 ML VIAL ONE (12:20)
[2019-12-09] MEDS ORDERED: NA CHLORIDE 0.9% 250 ML ONE (12:21)
--- NOTE | 2019-12-09 14:34 | RAD REPORT ---
EXAM DESCRIPTION: RAD - Shoulder 1 View - 12/09/2019 1:53 pm CLINICAL HISTORY: post reduction COMPARISON: Shoulder Right 2 View dated 12/09/2019 TECHNIQUE: Single portable AP view of the right shoulder obtained labeled post reduction FINDINGS: Dislocated humeral head has been reduced. Right humeral head detail is somewhat limited. T here is questionable Hill-Sachs deformity. Acromial humeral joint space is narrowed. Patient likely h as chronic rotator cuff tear. Prominent degenerative change present at the AC joint. IMPRESSION: Dislocated right humeral head has been reduced to anatomic position.
--- NOTE | 2019-12-09 14:53 | ER ---
Nurse's Notes [facility] Name: Puneet Willis Age: 74 yrs Sex: Male : 1945 Arrival Date: 12/09/2019 Time: 09:56 Bed 13 Private MD: Diagnosis: Fall on same level, unspecified;Recurrent dislocation, right shoulder;Dislocation and sprain of joints and ligaments of shoulder girdle Presentation: 12/08 10:00 Chief complaint: Patient states: R shoulder pain after falling from a standing position ss yesterday. Denies dizziness. Coronavirus screen: Proceed with normal triage. Ebola Screen: Patient denies exposure to infectious person. Patient denies travel to an Ebola-affected area in the 21 days before illness onset. Initial Sepsis Screen: Does the patient meet any 2 criteria? No. Patient's initial sepsis screen is negative. Does the patient have a suspected source of infection? No. Patient's initial sepsis screen is negative. Risk Assessment: Do you want to hurt yourself or someone else? Patient reports no desire to harm self or others. Onset of symptoms was December 08, 2019. 10:00 Method Of Arrival: Ambulatory ss 10:00 Acuity: MICHAELA 4 ss Historical: - Allergies: 10:02 No Known Allergies; ss - Home Meds: 12:40 "blood pressure medication" [Active]; amlodipine oral [Active]; tamsulosin Oral jl7 [Active]; - PMHx: 10:02 Arthritis; Hypertension; ss - PSHx: 10:02 Prostate; ss - Immunization history:: Adult Immunizations up to date. - Social history:: Smoking status: Patient denies any tobacco usage or history of. Screenin:10 Abuse screen: Denies threats or abuse. Denies injuries from another. Nutritional jl7 screening: No deficits noted. Tuberculosis screening: No symptoms or risk factors identified. Fall Risk None identified. Assessment: 10:10 General: Appears in no apparent distress. uncomfortable, Behavior is cooperative, jl7 anxious. Pain: Complains of pain in right shoulder Pain currently is 8 out of 10 on a pain scale. Neuro: Level of Consciousness is awake, alert, obeys commands. Cardiovascular: Patient's skin is warm and dry. Respiratory: Airway is patent Respiratory effort is even, unlabored, Respiratory pattern is regular, symmetrical. Derm: Skin is pink, warm \\T\\ dry. Musculoskeletal: Sling to right arm noted. 12:39 Reassessment: Ofelia # [id number], language line, conscious sedation and procedure explained, jl7 pt verbalizes understanding and reports he's had this done before. Pt denies and questions at this time. 14:00 Reassessment: Patient appears in no apparent distress at this time. Patient and/or jl7 family updated on plan of care and expected duration. Pain level reassessed. Patient is alert, oriented x 3, equal unlabored respirations, skin warm/dry/pink. Vital Signs: 10:00 BP 157 / 88; Pulse 74; Resp 19; Temp 98.6(TE); Pulse Ox 99% on R/A; Weight 81.65 kg; ss Pain 8/10; 10:20 BP 151 / 83; Pulse 73; Resp 17 S; Pulse Ox 97% on R/A; jl7 12:36 BP 143 / 63; Pulse 56; Resp 16 S; Temp 98.6(O); Pulse Ox 100% on 2 lpm NC; jl7 13:00 BP 144 / 57; Pulse 56; Resp 15 S; Pulse Ox 100% on 2 lpm NC; jl7 13:30 BP 160 / 89; Pulse 61; Resp 19 S; Pulse Ox 100% on 2 lpm NC; jl7 14:00 BP 140 / 71; Pulse 61; Resp 19 S; Pulse Ox 100% on 2 lpm NC; jl7 14:30 BP 145 / 70; Pulse 58; Resp 16 S; Pulse Ox 100% on 2 lpm NC; jl7 ED Course: 09:56 Patient arrived in ED. mr 09:56 Deana Merino, EDITH is PHCP. snw 09:56 Imer Root MD is Attending Physician. snw 10:02 Triage completed. ss 10:02 Arm band placed on right wrist. ss 10:08 Ap Narvaez, SONI is Primary Nurse. jl7 10:10 Patient has correct armband on for positive identification. Bed in low position. Call jl7 light in reach. Side rails up X2. Pulse ox on. NIBP on. 10:36 Shoulder Right (2 View) XRAY In Process Unspecified. EDMS 11:15 Chest Single View In Process Unspecified. EDMS 12:37 Consent for conscious sedation explained by staff, explained by physician, signed by jl7 patient. 12:45 Inserted saline lock: 20 gauge in left forearm, using aseptic technique. jl7 13:15 Assist provider with reduction of right shoulder using manipulation, Set up for jl7 procedure. Performed by Deana SHARMA Immobilized with shoulder immobilizer Patient tolerated well. 13:53 Shoulder 1 View In Process Unspecified. EDMS 14:50 Ugo Jones MD is Referral Physician. snw 15:05 IV discontinued, intact, bleeding controlled, No redness/swelling at site. Pressure jl7 dressing applied. Administered Medications: 10:11 Drug: [place] 5 mg-325 mg 1 tabs Route: PO; jl7 10:40 Follow up: Response: No adverse reaction; Pain is decreased jl7 11:20 Drug: Valium 5 mg Route: PO; jl7 11:50 Follow up: Response: No adverse reaction jl7 11:21 Drug: fentaNYL (PF) 50 mcg Route: IM; Site: left deltoid; jl7 11:50 Follow up: Response: No adverse reaction jl7 13:16 Drug: Versed 0.5 mg Route: IVP; Site: left forearm; jl7 13:30 Follow up: Response: No adverse reaction jl7 13:17 Drug: Ketamine 20 mg {Note: administered 30 mg IVP per VO during procedure..} Route: jl7 IVP; Site: left forearm; 13:30 Follow up: Response: No adverse reaction jl7 14:17 Not Given (Duplicate Order): Ketamine 20 mg IVP once jl7 Outcome: 14:52 Discharge ordered by . snw 15:05 Discharged to home ambulatory, with family. jl7 15:05 Condition: stable 15:05 Discharge instructions given to patient, Instructed on discharge instructions, follow up and referral plans. medication usage, Demonstrated understanding of instructions, follow-up care, medications, Prescriptions given X 1. 15:10 Patient left the ED. jl7 Signatures: Dispatcher [employer] EDIL Deana Merino FNP-C FIBERGLASS PIPE COVERING SUPERVISOR-Csnrenetta RiverMelissa mr SeguraGrecia multani, RN RN Ap Barrera RN RN jl7 Corrections: (The following items were deleted from the chart) 14:18 13:17 Ketamine 20 mg IVP in left forearm jl7 jl7
--- NOTE | 2019-12-09 14:53 | EDPHYS ---
Physician Documentation [facility] Name: Puneet Willis Age: 74 yrs Sex: Male : 1945 Arrival Date: 12/09/2019 Time: 09:56 Bed 13 Private MD: ED Physician Imer Root HPI: 12/08 10:01 This 74 yrs old Male presents to ER via Unassigned with complaints of Shoulder snw Pain. 10:01 The patient or guardian complains of pain, that is acute, tenderness. right shoulder. snw Context: The problem was sustained at home, resulted from a fall, The patient experiences decreased range of motion. Onset: The symptoms/episode began/occurred suddenly, last night. Associated signs and symptoms: Pertinent positives: severe pain. Severity of symptoms: At their worst the symptoms were moderate. Treatment prior to arrival includes: sling, per EMS. The patient has not experienced similar symptoms in the past. The patient has not recently seen a physician. Hx of HTN, arthritis, no changes in medications. Pt has noted 3 days of lower ext edema. Denies SOB. Denies pain in abd or lower extremities. Historical: - Allergies: 10:02 No Known Allergies; ss - Home Meds: 12:40 "blood pressure medication" [Active]; amlodipine oral [Active]; tamsulosin Oral jl7 [Active]; - PMHx: 10:02 Arthritis; Hypertension; ss - PSHx: 10:02 Prostate; ss - Immunization history:: Adult Immunizations up to date. - Social history:: Smoking status: Patient denies any tobacco usage or history of. ROS: 10:00 Constitutional: Negative for fever, chills, and weight loss, Eyes: Negative for injury, snw pain, redness, and discharge, ENT: Negative for injury, pain, and discharge, Neck: Negative for injury, pain, and swelling, Cardiovascular: Negative for chest pain, palpitations, and edema, Respiratory: Negative for shortness of breath, cough, wheezing, and pleuritic chest pain, Abdomen/GI: Negative for abdominal pain, nausea, vomiting, diarrhea, and constipation, Back: Negative for injury and pain, : Negative for injury, bleeding, discharge, and swelling, Skin: Negative for injury, rash, and discoloration. 10:00 Psych: Negative for depression, anxiety, suicide ideation, homicidal ideation, and hallucinations. 10:00 MS/extremity: Positive for injury or acute deformity, decreased range of motion, pain, of the anterior aspect of right shoulder and right bicep. 10:00 Neuro: Negative for altered mental status, dizziness, loss of consciousness, visual changes, weakness. Exam: 09:59 Constitutional: This is a well developed, well nourished patient who is awake, alert, snw and in no acute distress. Head/Face: Normocephalic, atraumatic. Eyes: Pupils equal round and reactive to light, extra-ocular motions intact. Lids and lashes normal. Conjunctiva and sclera are non-icteric and not injected. Cornea within normal limits. Periorbital areas with no swelling, redness, or edema. ENT: Nares patent. No nasal discharge, no septal abnormalities noted. Tympanic membranes are normal and external auditory canals are clear. Oropharynx with no redness, swelling, or masses, exudates, or evidence of obstruction, uvula midline. Mucous membranes moist. Neck: Trachea midline, no thyromegaly or masses palpated, and no cervical lymphadenopathy. Supple, full range of motion without nuchal rigidity, or vertebral point tenderness. No Meningismus. Chest/axilla: Normal chest wall appearance and motion. Nontender with no deformity. No lesions are appreciated. Cardiovascular: Regular rate and rhythm with a normal S1 and S2. No gallops, murmurs, or rubs. Normal PMI, no JVD. No pulse deficits. + bilateral lower ext edema Skin: Warm, dry with normal turgor. Normal color with no rashes, no lesions, and no evidence of cellulitis. MS/ Extremity: Pulses equal, no cyanosis. Neurovascular intact. Full, normal range of motion. Neuro: Awake and alert, GCS 15, oriented to person, place, time, and situation. Cranial nerves II-XII grossly intact. Motor strength 5/5 in all extremities. Sensory grossly intact. Cerebellar exam normal. Normal gait. Psych: Awake, alert, with orientation to person, place and time. Behavior, mood, and affect are within normal limits. 09:59 Abdomen/GI: Soft, non-tender, with normal bowel sounds. No distension or tympany. No guarding or rebound. No evidence of tenderness throughout. Back: No spinal tenderness. No costovertebral tenderness. Full range of motion. 09:59 Respiratory: the patient does not display signs of respiratory distress, Respirations: prolonged exhalation, shallow respirations, Breath sounds: bronchial sounds, + upper airway congestion. Vital Signs: 10:00 BP 157 / 88; Pulse 74; Resp 19; Temp 98.6(TE); Pulse Ox 99% on R/A; Weight 81.65 kg; ss Pain 8/10; 10:20 BP 151 / 83; Pulse 73; Resp 17 S; Pulse Ox 97% on R/A; jl7 12:36 BP 143 / 63; Pulse 56; Resp 16 S; Temp 98.6(O); Pulse Ox 100% on 2 lpm NC; jl7 13:00 BP 144 / 57; Pulse 56; Resp 15 S; Pulse Ox 100% on 2 lpm NC; jl7 13:30 BP 160 / 89; Pulse 61; Resp 19 S; Pulse Ox 100% on 2 lpm NC; jl7 14:00 BP 140 / 71; Pulse 61; Resp 19 S; Pulse Ox 100% on 2 lpm NC; jl7 14:30 BP 145 / 70; Pulse 58; Resp 16 S; Pulse Ox 100% on 2 lpm NC; jl7 Procedures: 11:47 Reduction: of the right shoulder, using traction, manipulation, Patient tolerated well. snw unable to reduce. Additional medications given.. Reduction: of the right shoulder, using traction, manipulation, Patient tolerated well. Dr. Root unable to reduce as well. Discussed sedation, risks, pt requests sedation. Consent given.. 13:28 Moderate sedation: Pre-procedure assessment: the patient has been NPO 7 hour(s) prior snw to arrival, ASA physical classification: III - organic disease with definite functional impairment, Airway assessment: able to maintain airway, Mallampati classification of tongue size: III - uvula can be visualized, but faucial pillars and soft palate are not appreciated, Medications employed: Ketamine, 40 mg(s), Versed, 0.5 mg(s), Reduction of right shoulder anterior dislocation. MDM: 09:56 Patient medically screened. snw 14:54 Data reviewed: vital signs, nurses notes. Data interpreted: Pulse oximetry: on room air snw is 100 %. Interpretation: normal. Counseling: I had a detailed discussion with the patient and/or guardian regarding: the historical points, exam findings, and any diagnostic results supporting the discharge/admit diagnosis, the presence of at least one elevated blood pressure reading (>120/80) during this emergency department visit, radiology results, the need for outpatient follow up, to return to the emergency department if symptoms worsen or persist or if there are any questions or concerns that arise at home. Response to treatment: the patient's symptoms have markedly improved after treatment. Special discussion: I have referred the patient to see his PCP for further evaluation of high blood pressure. Based on the history and exam findings, there is no indication for further emergent testing or inpatient evaluation. I discussed with the patient/guardian the need to see the orthopedic surgeon for further evaluation of the symptoms. I discussed with the patient/guardian the need to see the primary care provider for further evaluation of the symptoms. 12/08 09:58 Order name: Shoulder Right (2 View) XRAY; Complete Time: 11:28 snw 12/08 11:15 Order name: Chest Single View; Complete Time: 11:37 EDMS 12/08 13:51 Order name: Shoulder 1 View; Complete Time: 14:47 EDMS 12/08 11:46 Order name: Misc. Order: monitors and suction availability in room; Complete Time: 12:23snw 12/08 11:47 Order name: Conscious Sedation; Complete Time: 12:16 snw 12/08 11:47 Order name: Shoulder Immobilizer; Complete Time: 13:39 snw 12/08 11:47 Order name: PIV; Complete Time: 12:16 snw Administered Medications: 10:11 Drug: [place] 5 mg-325 mg 1 tabs Route: PO; jl7 10:40 Follow up: Response: No adverse reaction; Pain is decreased jl7 11:20 Drug: Valium 5 mg Route: PO; jl7 11:50 Follow up: Response: No adverse reaction jl7 11:21 Drug: fentaNYL (PF) 50 mcg Route: IM; Site: left deltoid; jl7 11:50 Follow up: Response: No adverse reaction jl7 13:16 Drug: Versed 0.5 mg Route: IVP; Site: left forearm; jl7 13:30 Follow up: Response: No adverse reaction jl7 13:17 Drug: Ketamine 20 mg {Note: administered 30 mg IVP per VO during procedure..} Route: jl7 IVP; Site: left forearm; 13:30 Follow up: Response: No adverse reaction jl7 14:17 Not Given (Duplicate Order): Ketamine 20 mg IVP once jl7 Disposition: 15:29 Co-signature as Attending Physician, Imer Root MD. rn Disposition: 12/09/19 14:52 Discharged to Home. Impression: Fall on same level, unspecified, Recurrent dislocation, right shoulder, Dislocation and sprain of joints and ligaments of shoulder girdle. - Condition is Stable. - Discharge Instructions: Shoulder Dislocation, Head Injury, Adult, Fall Prevention in the Home, Shoulder Pain. - Prescriptions for Diclofenac Sodium 75 mg Oral Tablet Sustained Release - take 1 tablet by ORAL route 2 times per day; 30 tablet. - Medication Reconciliation Form, Thank You Letter, Antibiotic Education, Prescription Opioid Use form. - Follow up: Emergency Department; When: As needed; Reason: Worsening of condition. Follow up: Private Physician; When: 2 - 3 days; Reason: Recheck today's complaints, Continuance of care, Re-evaluation by your physician. Follow up: Ugo Jones MD; When: 5 - 6 days; Reason: Recheck today's complaints, Continuance of care. Signatures: Dispatcher [employer] EDPA Deana Merino, REVENUE CYCLE SPECIALIST-C REVENUE CYCLE SPECIALIST-Csnw Imer Root MD MD rn Smirch, Shelby, RN RN ss Leal, Jahala, RN RN jl7 Corrections: (The following items were deleted from the chart) 11:14 09:58 Chest Pa And Lat (2 Views)+RAD.RAD.BRZ ordered. [facility] EDPA 13:51 13:25 Shoulder Right 2 View+RAD.RAD.BRZ ordered. [facility] EDPA 15:10 14:52 12/09/2019 14:52 Discharged to Home. Impression: Fall on same level, unspecified; jl7 Recurrent dislocation, right shoulder; Dislocation and sprain of joints and ligaments of shoulder girdle. Condition is Stable. Forms are Medication Reconciliation Form, Thank You Letter, Antibiotic Education, Prescription Opioid Use. Follow up: Emergency Department; When: As needed; Reason: Worsening of condition. Follow up: Private Physician; When: 2 - 3 days; Reason: Recheck today's complaints, Continuance of care, Re-evaluation by your physician. Follow up: Dr. Ugo Jones; When: 5 - 6 days; Reason: Recheck today's complaints, Continuance of care. snw
[2019-12-09 15:24] VITALS: TEMP 98.6
[2019-12-09 15:26] VITALS: O2SAT 100
[2019-12-09 15:33] VITALS: BP 145/70
== END 2019-12-09 15:10 | disposition home or self-care (01) ==
LOC: ER 09:49
PROC: 0RSJXZZ Reposition Right Shoulder Joint, External Approach (ICD-10-PCS; principal; 2019-12-09)
DX: M24.411 Recurrent dislocation, right shoulder (principal); S43.81XA Sprain of other specified parts of right shoulder girdle, initial encounter; W18.30XA Fall on same level, unspecified, initial encounter; Y93.9 Activity, unspecified; Y92.009 Unspecified place in unspecified non-institutional (private) residence as the place of occurrence of the external cause; I10 Essential (primary) hypertension
CPT/HCPCS: 71045; 73020; 73030; 23655; J2250; J3010; J7030; 96372; 96374; 96375; 99284

== ENCOUNTER 2019-12-14 13:41 | Emergency (ER) | payer OTHER ==
--- OUTSIDE RECORDS SUMMARY | 2019-12-14 13:45 | XMS REPORT ---
[...] Status Dosage System Date Date Tamsulosin HCl [facility] 98090342611 0.4 MG Orally Active 1 capsule Once a day Results No Known Results Summary Purpose eClinicalWorks Submission
--- OUTSIDE RECORDS SUMMARY | 2019-12-14 13:45 | XMS REPORT ---
[...] End Status Dosage System Date Date Amlodipine [facility] 12148554057 10 MG Orally Active take one Besylate Once a day tablet by mouth once daily Finasteride [facility] 87656662282 5MG Orally Once Active 1 tablet a day Tamsulosin HCl [facility] 42169219829 0.4 MG Orally January Active 1 capsule Once a day 2019 Donepezil HCl ND 94216145879 10 MG Orally February 22, Active 1 tablet Once a day 2019 at bedtime Belsomra ND 79518663109 10 MG Orally Apr 12, Active 1 tab let Once a day 2018 at bedtime as needed Losartan [facility] 18266790044 100-25 MG Orally Active ta ke 1 Potassium-HCTZ Once a day tablet by mouth every day Results No Known Results Summary Purpose eClinicalWorks Submission
--- OUTSIDE RECORDS SUMMARY | 2019-12-14 13:45 | XMS REPORT ---
:1945 Author Organization [facility] t Address [address] [place] [address] Care Team Providers Name Role Phone Unavailable [...] ID 2019-11-22 2019-11-22 [id number] 15:20:00 15:20:00 [facility] 2019-11-04 2019-11-04 [id number] 10:00:00 10:00:00 [facility] 2019-10-21 2019-10-21 [id number] 10:00:00 10:00:00 [facility] 2019-05-24 2019-05-24 [id number] 16:27:00 16:27:00 [facility] 2019-02-25 2019-02-25 [id number] 09:47:00 09:47:00 [facility] 2019-02-22 2019-02-22 [id number] 08:30:00 08:30:00 [facility] 2019-01-15 2019-01-15 [id number] 16:02:00 16:02:00 [facility] 2018-11-19 2018-11-19 [id number] 11:15:00 11:15:00 [facility] 2018-05-15 2018-05-15 [id number] 13:15:00 13:15:00 [facility] 2018-04-12 2018-04-12 [facility] [id number] 13:00:00 13:00:00 [facility]
--- OUTSIDE RECORDS SUMMARY | 2019-12-14 13:46 | XMS REPORT ---
[...] End Status Dosage System Date Date Amlodipine [facility] 11858170611 10 MG Orally Active take one Besylate Once a day tablet by mouth once daily Tamsulosin HCl [facility] 60690530972 0.4 MG Orally January Active 1 capsule Once a day 2019 Belsomra [facility] 18573167307 10 MG Orally Apr 12, Active 1 tab let Once a day 2017 at bedtime as needed Finasteride ND 43910223071 5MG Orally Once Active 1 tablet a day Donepezil HCl ND 15019681845 10 MG Orally February 22, Active 1 tablet Once a day 2018 at bedtime Losartan ND 99479261490 100-25 MG Orally Active ta ke 1 Potassium-HCTZ Once a day tablet by mouth every day Results No Known Results Summary Purpose eClinicalWorks Submission
--- OUTSIDE RECORDS SUMMARY | 2019-12-14 13:46 | XMS REPORT ---
[...] End Status Dosage System Date Date Belsomra [facility] 38951615729 10 MG Orally Apr 12, Active 1 tab let Once a day 2017 at bedtime as needed Losartan ND 04140019284 100-25 MG Active take 1 Potassium-HCTZ Orally Once a tab let by day mouth every day Metformin HCl ND 11013327011 500 MG Orally November Active 1 tablet daily with 2019 with a dinner meal Finasteride ND 64372352913 5MG Orally Once Active 1 tablet a day Amlodipine ND 48004079462 10 MG Orally Inactive antonette e one Besylate Once a day tablet by mouth once daily Tamsulosin HCl ND 94902250492 0.4 MG Orally January Active 1 capsule Once a day 2019 Donepezil HCl ND 26964917315 10 MG Orally February 22, Active 1 tablet Once a day 2018 at bedtime Results No Known Results Summary Purpose eClinicalWorks Submission
[2019-12-14 14:53] LABS: Absolute Lymphocytes (CBC) 2.2 K/uL (0.7-4.9); Basophils % 0.4 % (0-1.3); Hematocrit 46.9 % (39.6-49.0); Lymphocytes % 26.1 % (15.3-44.8); MPV 9.1 fL (7.6-11.3)
[2019-12-14] MEDS ORDERED: MIDAZOLAM HCL 2 MG/2 ML INJ ONE (15:00)
[2019-12-14] MEDS ORDERED: ETOMIDATE 20 MG/10 ML VIAL IV ONE (15:00)
[2019-12-14] MEDS ORDERED: NA CHLORIDE 0.9% 1,000 ML ONE ×2 (15:06)
[2019-12-14 15:10] LABS: Potassium 3.9 mmol/L (3.5-5.1)
--- NOTE | 2019-12-14 15:10 | RAD REPORT ---
EXAM DESCRIPTION: Shoulder Right 2 View - 12/14/2019 2:48 pm CLINICAL HISTORY: PAIN COMPARISON: Shoulder Right 2 View dated 12/09/2019; Shoulder Right 2 View dated 09/25/2019 TECHNIQUE: Internal and external rotation views of the right shoulder were obtained. FINDINGS: Humeral head is dislocated anterior and medial to the glenoid. Similar anterior dislocatio n findings seen on the comparison December 08 study. Prominent AC joint degenerative changes are present. No AC separation. IMPRESSION: Anterior dislocation of the right humeral head.
[2019-12-14 15:27] LABS: Blood Morphology Comment NOT SEEN (NOT SEEN); Platelet Estimate ADEQ; Platelets, Giant NOTED
--- NOTE | 2019-12-14 15:47 | EDPHYS ---
Physician Documentation [facility] Name: Puneet Willis Age: 74 yrs Sex: Male : 1945 Arrival Date: 12/14/2019 Time: 13:45 Bed 6 Private MD: Ly Moura C ED Physician Brennan Lam HPI: 12/13 14:17 This 74 yrs old Male presents to ER via Ambulatory with complaints of Arm Pain.nohemi 14:17 The patient or guardian complains of decreased range of motion, pain, that is acute. nohemi The complaints affect the anterior aspect of right shoulder and posterior aspect of right shoulder. Context: The problem was sustained at home. Onset: The symptoms/episode began/occurred 5 day(s) ago. Treatment prior to arrival includes: sling. Modifying factors: The symptoms are alleviated by remaining still, the symptoms are aggravated by movement. fell on the 5th, reduced then, dislocated 2 days ago , been out since then. Historical: - Allergies: 14:05 No Known Allergies; ss - PMHx: 14:05 Arthritis; Hypertension; ss - PSHx: 14:05 Prostate; ss - Immunization history:: Adult Immunizations up to date. - Social history:: Smoking status: Patient denies any tobacco usage or history of. ROS: 14:19 Constitutional: Negative for fever, chills, and weight loss, Eyes: Negative for injury, nohemi pain, redness, and discharge, ENT: Negative for injury, pain, and discharge, Neck: Negative for injury, pain, and swelling, Cardiovascular: Negative for chest pain, palpitations, and edema, Respiratory: Negative for shortness of breath, cough, wheezing, and pleuritic chest pain, Abdomen/GI: Negative for abdominal pain, nausea, vomiting, diarrhea, and constipation, Back: Negative for injury and pain, : Negative for injury, bleeding, discharge, and swelling, Skin: Negative for injury, rash, and discoloration, Neuro: Negative for headache, weakness, numbness, tingling, and seizure, Psych: Negative for depression, anxiety, suicide ideation, homicidal ideation, and hallucinations, Allergy/Immunology: Negative for hives, rash, and allergies, Endocrine: Negative for neck swelling, polydipsia, polyuria, polyphagia, and marked weight changes, Hematologic/Lymphatic: Negative for swollen nodes, abnormal bleeding, and unusual bruising. 14:19 MS/extremity: Positive for decreased range of motion, pain, tenderness, of the anterior aspect of right shoulder and posterior aspect of right shoulder. Exam: 14:19 Constitutional: This is a well developed, well nourished patient who is awake, alert, nohemi and in no acute distress. Head/Face: Normocephalic, atraumatic. Eyes: Pupils equal round and reactive to light, extra-ocular motions intact. Lids and lashes normal. Conjunctiva and sclera are non-icteric and not injected. Cornea within normal limits. Periorbital areas with no swelling, redness, or edema. ENT: Nares patent. No nasal discharge, no septal abnormalities noted. Tympanic membranes are normal and external auditory canals are clear. Oropharynx with no redness, swelling, or masses, exudates, or evidence of obstruction, uvula midline. Mucous membranes moist. Neck: Trachea midline, no thyromegaly or masses palpated, and no cervical lymphadenopathy. Supple, full range of motion without nuchal rigidity, or vertebral point tenderness. No Meningismus. Chest/axilla: Normal chest wall appearance and motion. Nontender with no deformity. No lesions are appreciated. Cardiovascular: Regular rate and rhythm with a normal S1 and S2. No gallops, murmurs, or rubs. Normal PMI, no JVD. No pulse deficits. Respiratory: Lungs have equal breath sounds bilaterally, clear to auscultation and percussion. No rales, rhonchi or wheezes noted. No increased work of breathing, no retractions or nasal flaring. Abdomen/GI: Soft, non-tender, with normal bowel sounds. No distension or tympany. No guarding or rebound. No evidence of tenderness throughout. Back: No spinal tenderness. No costovertebral tenderness. Full range of motion. Male : Normal genitalia with no discharge or lesions. Skin: Warm, dry with normal turgor. Normal color with no rashes, no lesions, and no evidence of cellulitis. Neuro: Awake and alert, GCS 15, oriented to person, place, time, and situation. Cranial nerves II-XII grossly intact. Motor strength 5/5 in all extremities. Sensory grossly intact. Cerebellar exam normal. Normal gait. Psych: Awake, alert, with orientation to person, place and time. Behavior, mood, and affect are within normal limits. 14:19 Musculoskeletal/extremity: Extremities: noted in the anterior aspect of right shoulder and posterior aspect of right shoulder: ROM: limited active range of motion, limited passive range of motion, Circulation is intact in all extremities. Sensation intact. Compartment Syndrome exam of affected extremity: is normal. Joints: All joints are normal except dislocation, limited range of motion, painful range of motion, tenderness. Vital Signs: 14:02 BP 136 / 80; Pulse 68; Resp 17; Temp 98.4(TE); Pulse Ox 98% on R/A; Pain 8/10; ss 15:15 BP 125 / 77; Pulse 58; Resp 22; Temp 98.1(TE); Pulse Ox 99% on R/A; mh5 Procedures: 15:48 Reduction: of the right shoulder, using traction, Immobilized with shoulder nohemi immobilizer. Patient tolerated well. Post reduction film - reveals normal alignment. MDM: 14:07 Patient medically screened. [facility] 14:20 Differential diagnosis: dislocation, closed fracture, abrasion. Data reviewed: vital nohemi signs, nurses notes, old medical records, lab test result(s), radiologic studies. Data interpreted: satellite project site monitor: rate is 68 beats/min, Pulse oximetry: on room air is 98 %. Test interpretation: by ED physician or midlevel provider: plain radiologic studies. Counseling: I had a detailed discussion with the patient and/or guardian regarding: the historical points, exam findings, and any diagnostic results supporting the discharge/admit diagnosis, lab results, radiology results, the need for outpatient follow up. 15:43 ED course: nvi, pt placed in supine, sedated, see jannie, no comps, reduced with traction, nohemi post reduction good position, immoblizer placed, nvi. 12/13 14:17 Order name: CBC with Diff; Complete Time: 15:43 nohemi 12/13 14:17 Order name: Chem 7; Complete Time: 15:43 nohemi 12/13 14:17 Order name: Shoulder Right (2 View) XRAY; Complete Time: 15:43 nohemi 12/13 14:57 Order name: Manual Differential; Complete Time: 15:43 EDMS 12/13 15:14 Order name: Shoulder Right (2 View) XRAY ss 12/13 15:08 Order name: Oxygen; Complete Time: 15:13 nohemi 12/13 15:47 Order name: Ice pack; Complete Time: 16:27 [facility] Administered Medications: 14:55 Drug: NS 0.9% 1000 ml Route: IV; Rate: 125 ml/hr; Site: left forearm; em 16:27 Follow up: IV Status: Order to discontinue infusion em 14:58 Drug: Versed 3 mg Route: IVP; Site: left forearm; em 15:10 Follow up: Response: No adverse reaction; Patient is sedated em 15:04 Drug: Etomidate 10 mg Route: IVP; Site: left forearm; em 15:10 Follow up: Response: No adverse reaction; Patient is sedated em 15:15 Not Given (Physician Discretion): Etomidate 10 mg IVP once em Disposition: 12/14/19 15:46 Discharged to Home. Impression: Recurrent dislocation, right shoulder - reduced. - Condition is Stable. - Discharge Instructions: Shoulder Dislocation, RICE for Routine Care of Injuries, RICE for Routine Care of Injuries, [id number], Shoulder Dislocation, [id number]. - Prescriptions for Tylenol- Codeine #3 300-30 mg Oral Tablet - take 2 tablet by ORAL route every 6 hours As needed; 30 tablet. - Medication Reconciliation Form, Thank You Letter, Antibiotic Education, Prescription Opioid Use form. - Follow up: Private Physician; When: 2 - 3 days; Reason: Recheck today's complaints, Continuance of care, Re-evaluation by your physician. Follow up: Ugo Jones MD; When: 2 - 3 days; Reason: Recheck today's complaints, Re-evaluation by your physician. - Problem is new. - Symptoms have improved. Signatures: Dispatcher [employer] [facility] Brennan Lam MD MD cha Munoz, Edgar, RN RN Grecia Berrios RN RN ss Corrections: (The following items were deleted from the chart) 16:30 15:46 12/14/2019 15:46 Discharged to Home. Impression: Recurrent dislocation, right em shoulder - reduced. Condition is Stable. Forms are Medication Reconciliation Form, Thank You Letter, Antibiotic Education, Prescription Opioid Use. Follow up: Private Physician; When: 2 - 3 days; Reason: Recheck today's complaints, Continuance of care, Re-evaluation by your physician. Follow up: Dr. Ugo Jones; When: 2 - 3 days; Reason: Recheck today's complaints, Re-evaluation by your physician. Problem is new. Symptoms have improved. nohemi
--- NOTE | 2019-12-14 15:47 | ER ---
Nurse's Notes [facility] Name: Puneet Willis Age: 74 yrs Sex: Male : 1945 Arrival Date: 12/14/2019 Time: 13:45 Bed 6 Private MD: Ly Moura C Diagnosis: Recurrent dislocation, right shoulder-reduced Presentation: 12/13 14:02 Chief complaint: Patient states: Seen on 12/08 in ER to have R shoulder reduced after ss falling from a standing position. Pt believes that his R shoulder is dislocated again. This time it occurred 2 days ago when he was opening the refrigerator to get water. Pt states, "I just didn't want to come in. I've been taking pain medicine.". Coronavirus screen: Proceed with normal triage. Ebola Screen: Patient denies exposure to infectious person. Patient denies travel to an Ebola-affected area in the 21 days before illness onset. Initial Sepsis Screen: Does the patient meet any 2 criteria? No. Patient's initial sepsis screen is negative. Does the patient have a suspected source of infection? No. Patient's initial sepsis screen is negative. Risk Assessment: Do you want to hurt yourself or someone else? Patient reports no desire to harm self or others. Onset of symptoms was December 12, 2019. 14:02 Method Of Arrival: Ambulatory ss 14:02 Acuity: MICHAELA 3 ss Historical: - Allergies: 14:05 No Known Allergies; ss - PMHx: 14:05 Arthritis; Hypertension; ss - PSHx: 14:05 Prostate; ss - Immunization history:: Adult Immunizations up to date. - Social history:: Smoking status: Patient denies any tobacco usage or history of. Screenin:40 Abuse screen: Denies threats or abuse. Nutritional screening: No deficits noted. em Tuberculosis screening: No symptoms or risk factors identified. Fall Risk None identified. Assessment: 14:40 General: Appears in no apparent distress. uncomfortable, Behavior is calm, cooperative, em appropriate for age. Pain: Complains of pain in posterior aspect of right shoulder and anterior aspect of right shoulder. Neuro: Level of Consciousness is awake, alert, obeys commands, Oriented to person, place, time, situation, Appropriate for age. Cardiovascular: Capillary refill < 3 seconds Patient's skin is warm and dry. Respiratory: Airway is patent Respiratory effort is even, unlabored, Respiratory pattern is regular, symmetrical. Derm: Skin is intact, is healthy with good turgor, Skin is pink, warm \\T\\ dry. Musculoskeletal: Capillary refill < 3 seconds, Range of motion: limited in right shoulder reports shoulder dislocation after attempting to open the refrigerator. 15:10 Reassessment: Patient appears in no apparent distress at this time. assisted provider em with reduction of right shoulder, pending post reduction x-ray. 15:30 Reassessment: Patient appears in no apparent distress at this time. Patient and/or em family updated on plan of care and expected duration. Pain level reassessed. Patient is alert, oriented x 3, equal unlabored respirations, skin warm/dry/pink. Vital Signs: 14:02 BP 136 / 80; Pulse 68; Resp 17; Temp 98.4(TE); Pulse Ox 98% on R/A; Pain 8/10; ss 15:15 BP 125 / 77; Pulse 58; Resp 22; Temp 98.1(TE); Pulse Ox 99% on R/A; mh5 ED Course: 13:45 Patient arrived in ED. am2 13:45 Ly Moura FNP-C is Private Physician. am2 14:05 Triage completed. ss 14:05 Arm band placed on left wrist. ss 14:07 Brennan Lam MD is Attending Physician. [facility] 14:22 Quang Olson, RN is Primary Nurse. em 14:33 Missed attempt(s): 22 gauge in left antecubital area. mh5 14:45 Initial lab(s) drawn, by ut, sent to lab. Inserted saline lock: 20 gauge in left em forearm, using aseptic technique. Blood collected. 14:49 Shoulder Right (2 View) XRAY In Process Unspecified. EDMS 14:55 Oxygen administration via nasal cannula \\T\\ 2L/min. em 15:05 Assist provider with reduction of right shoulder using traction, Set up for procedure. em Performed by Brennan Lam MD Immobilized with shoulder immobilizer Patient tolerated well. 15:16 Patient has correct armband on for positive identification. Bed in low position. Call 5 light in reach. Side rails up X 1. Warm blanket given. Pillow given. prototype technician on. Pulse ox on. NIBP on. 15:29 Shoulder Right (2 View) XRAY In Process Unspecified. EDMS 15:46 Ugo Jones MD is Referral Physician. [facility] 16:30 IV discontinued, intact, bleeding controlled, No redness/swelling at site. Pressure em dressing applied. Administered Medications: 14:55 Drug: NS 0.9% 1000 ml Route: IV; Rate: 125 ml/hr; Site: left forearm; em 16:27 Follow up: IV Status: Order to discontinue infusion em 14:58 Drug: Versed 3 mg Route: IVP; Site: left forearm; em 15:10 Follow up: Response: No adverse reaction; Patient is sedated em 15:04 Drug: Etomidate 10 mg Route: IVP; Site: left forearm; em 15:10 Follow up: Response: No adverse reaction; Patient is sedated em 15:15 Not Given (Physician Discretion): Etomidate 10 mg IVP once em Outcome: 15:46 Discharge ordered by . nohemi 16:27 Discharged to home via wheelchair. em 16:27 Condition: good 16:27 Discharge instructions given to patient, Instructed on discharge instructions, follow up and referral plans. medication usage, Demonstrated understanding of instructions, follow-up care, medications, Prescriptions given X 1. 16:30 Patient left the ED. em Signatures: Dispatcher [employer] EDBrennan Andrade MD MD cha Munoz, Edgar, Grecia Donovan RN, RN RN ss Martinez, Maria [facility] Sarahy Winston [facility]
--- NOTE | 2019-12-14 16:03 | RAD REPORT ---
EXAM DESCRIPTION: Shoulder Right 2 View - 12/14/2019 3:29 pm CLINICAL HISTORY: post reduction COMPARISON: Shoulder Right 2 View dated 12/14/2019 TECHNIQUE: Single AP projection of the right shoulder obtained. FINDINGS: Anterior dislocation has been reduced to anatomic position. No acute fracture or unexpected finding.
[2019-12-14 16:38] VITALS: BP 125/77; TEMP 98.1; O2SAT 99
== END 2019-12-14 16:30 | disposition home or self-care (01) ==
LOC: ER 13:41
PROC: 0RSJXZZ Reposition Right Shoulder Joint, External Approach (ICD-10-PCS; principal; 2019-12-14)
DX: M24.411 Recurrent dislocation, right shoulder (principal); I10 Essential (primary) hypertension
CPT/HCPCS: 96361; 85025; 80048; 36415; 73030 ×2; 96375; 96374; 99285; 23655; J2250; J7030 ×2

== ENCOUNTER 2019-12-17 14:58 | Emergency (ER) | payer OTHER ==
[2019-12-17] MEDS ORDERED: HYDROCODONE/APAP 10/325 TAB ONE (15:25)
--- OUTSIDE RECORDS SUMMARY | 2019-12-17 15:26 | XMS REPORT ---
:[address] [facility] t Address [address] [place] [address] Care Team Providers Name Role Phone Unavailable [...] ID 2019-11-22 2019-11-22 [id number] 15:20:00 15:20:00 [facility] 2019-11-04 2019-11-04 [facility] [id number] 10:00:00 10:00:00 [facility] 2019-10-21 2019-10-21 [facility] [id number] 10:00:00 10:00:00 [facility] 2019-05-24 2019-05-24 [facility] [id number] 16:27:00 16:27:00 [facility] 2019-02-25 2019-02-25 [facility] [id number] 09:47:00 09:47:00 [facility] 2019-02-22 2019-02-22 [facility] [id number] 08:30:00 08:30:00 [facility] 2019-01-15 2019-01-15 [facility] [id number] 16:02:00 16:02:00 [facility] 2018-11-19 2018-11-19 [facility] [id number] 11:15:00 11:15:00 [facility] 2018-05-15 2018-05-15 [facility] [id number] 13:15:00 13:15:00 [facility] 2018-04-12 2018-04-12 [facility] [id number] 13:00:00 13:00:00 [facility]
--- OUTSIDE RECORDS SUMMARY | 2019-12-17 15:26 | XMS REPORT ---
[...] End Status Dosage System Date Date Amlodipine [facility] 3] 46722369289 10 MG Orally Active take one Besylate Once a day tablet by mouth once daily Tamsulosin HCl [facility][NOTE 3] 74379873797 0.4 MG Orally January Active 1 capsule Once a day 2019 Belsomra [facility][NOTE 3] 34034319205 10 MG Orally Apr 12, Active 1 tab let Once a day 2017 at bedtime as needed Finasteride ND 29641382858 5MG Orally Once Active 1 tablet a day Donepezil HCl ND 99010350269 10 MG Orally February 22, Active 1 tablet Once a day 2018 at bedtime Losartan ND 17761558299 100-25 MG Orally Active ta ke 1 Potassium-HCTZ Once a day tablet by mouth every day Results No Known Results Summary Purpose eClinicalWorks Submission
--- OUTSIDE RECORDS SUMMARY | 2019-12-17 15:26 | XMS REPORT ---
[...] End Status Dosage System Date Date Belsomra [facility] 04494620124 10 MG Orally Apr 12, Active 1 tab let Once a day 2017 at bedtime as needed Losartan ND 50673399726 100-25 MG Active take 1 Potassium-HCTZ Orally Once a tab let by day mouth every day Metformin HCl ND 16162197151 500 MG Orally November Active 1 tablet daily with 2019 with a dinner meal Finasteride ND 21658704726 5MG Orally Once Active 1 tablet a day Amlodipine ND 60050861424 10 MG Orally Inactive antonette e one Besylate Once a day tablet by mouth once daily Tamsulosin HCl ND 56508038044 0.4 MG Orally January Active 1 capsule Once a day 2019 Donepezil HCl ND 32717938872 10 MG Orally February 22, Active 1 tablet Once a day 2018 at bedtime Results No Known Results Summary Purpose eClinicalWorks Submission
--- OUTSIDE RECORDS SUMMARY | 2019-12-17 15:26 | XMS REPORT ---
[...] End Status Dosage System Date Date Amlodipine [facility] 09264679847 10 MG Orally Active take one Besylate Once a day tablet by mouth once daily Finasteride [facility] 19333391719 5MG Orally Once Active 1 tablet a day Tamsulosin HCl [facility] 85763508297 0.4 MG Orally January Active 1 capsule Once a day 2019 Donepezil HCl ND 34983605177 10 MG Orally February 22, Active 1 tablet Once a day 2019 at bedtime Belsomra ND 85707878277 10 MG Orally Apr 12, Active 1 tab let Once a day 2018 at bedtime as needed Losartan [facility] 84552697723 100-25 MG Orally Active ta ke 1 Potassium-HCTZ Once a day tablet by mouth every day Results No Known Results Summary Purpose eClinicalWorks Submission
--- OUTSIDE RECORDS SUMMARY | 2019-12-17 15:26 | XMS REPORT ---
[...] Status Dosage System Date Date Tamsulosin HCl [facility] 53752255648 0.4 MG Orally Active 1 capsule Once a day Results No Known Results Summary Purpose eClinicalWorks Submission
--- NOTE | 2019-12-17 15:40 | RAD REPORT ---
EXAM DESCRIPTION: Shoulder Right 2 View - 12/17/2019 3:33 pm CLINICAL HISTORY: PAIN COMPARISON: Shoulder Right 2 View dated 12/14/2019; Shoulder Right 2 View dated 12/14/2019 TECHNIQUE: Internal and external rotation views of the right shoulder were obtained. FINDINGS: Anterior dislocation of the humeral head is again noted position medial and inferior to th e glenoid. AC joint degenerative changes are present. No acute AC joint or clavicle finding. No path ologic bone process. IMPRESSION: Anterior dislocation of the right humeral head.
[2019-12-17] MEDS ORDERED: MIDAZOLAM HCL 2 MG/2 ML INJ ONE (16:16)
[2019-12-17] MEDS ORDERED: ETOMIDATE 20 MG/10 ML VIAL IV ONE (16:16)
[2019-12-17] MEDS ORDERED: NA CHLORIDE 0.9% 1,000 ML ONE (16:39)
--- NOTE | 2019-12-17 17:12 | RAD REPORT ---
EXAM DESCRIPTION: Shoulder Right 2 View - 12/17/2019 4:57 pm CLINICAL HISTORY: post reduction COMPARISON: Shoulder Right 2 View dated 12/17/2019 TECHNIQUE: Internal and external rotation views of the right shoulder were obtained. FINDINGS: Dislocation has been reduced to anatomic position. No acute fracture component.
--- NOTE | 2019-12-17 17:15 | EDPHYS ---
Physician Documentation [facility] Name: Puneet Willis Age: 74 yrs Sex: Male : 1945 Arrival Date: 12/17/2019 Time: 15:03 Bed 18 Private MD: ED Physician Brennan Lam HPI: 12/16 15:48 This 74 yrs old Male presents to ER via EMS with complaints of Fall Injury, kb Arm Pain. 15:48 The patient or guardian complains of decreased range of motion, deformity, pain, kb tenderness. right shoulder. Context: The problem was sustained at home, resulted from dressing, The patient experiences decreased range of motion, The patient notes a deformity, an anterior fullness. Onset: The symptoms/episode began/occurred just prior to arrival. Modifying factors: the symptoms are alleviated by nothing. The symptoms are aggravated by movement. Associated signs and symptoms: The patient has no apparent associated signs or symptoms. Severity of symptoms: At their worst the symptoms were moderate, in the emergency department the symptoms are unchanged. Treatment prior to arrival includes: no previous treatment. The patient has experienced similar episodes in the past. The patient has not recently seen a physician. Pt states he was pulling down his pants and felt his shoulder fall out of place. Has had dislocations in the past. Reports he fell over the weekend, but not today. Historical: - Allergies: 15:09 No Known Allergies; sv - PMHx: 15:09 Arthritis; Hypertension; sv - PSHx: 15:09 Prostate; sv - Immunization history: Last tetanus immunization:. - Social history:: Smoking status: Patient denies any tobacco usage or history of. ROS: 15:47 Constitutional: Negative for fever, chills, and weight loss, Cardiovascular: Negative kb for chest pain, palpitations, and edema, Respiratory: Negative for shortness of breath, cough, wheezing, and pleuritic chest pain, Abdomen/GI: Negative for abdominal pain, nausea, vomiting, diarrhea, and constipation, Back: Negative for injury and pain, Skin: Negative for injury, rash, and discoloration, Neuro: Negative for headache, weakness, numbness, tingling, and seizure. 15:47 MS/extremity: Positive for injury or acute deformity, decreased range of motion, pain, of the anterior aspect of right shoulder. Exam: 15:47 Constitutional: This is a well developed, well nourished patient who is awake, alert, kb and in no acute distress. Head/Face: Normocephalic, atraumatic. Chest/axilla: Normal chest wall appearance and motion. Nontender with no deformity. No lesions are appreciated. Cardiovascular: Regular rate and rhythm with a normal S1 and S2. No gallops, murmurs, or rubs. Normal PMI, no JVD. No pulse deficits. Respiratory: Lungs have equal breath sounds bilaterally, clear to auscultation and percussion. No rales, rhonchi or wheezes noted. No increased work of breathing, no retractions or nasal flaring. Abdomen/GI: Soft, non-tender, with normal bowel sounds. No distension or tympany. No guarding or rebound. No evidence of tenderness throughout. Skin: Warm, dry with normal turgor. Normal color with no rashes, no lesions, and no evidence of cellulitis. Neuro: Awake and alert, GCS 15, oriented to person, place, time, and situation. Cranial nerves II-XII grossly intact. Motor strength 5/5 in all extremities. Sensory grossly intact. Cerebellar exam normal. Normal gait. 15:47 Musculoskeletal/extremity: Extremities: grossly normal except: noted in the anterior aspect of right shoulder: decreased ROM, deformity, pain, tenderness, ROM: limited active range of motion, limited passive range of motion, Circulation is intact in all extremities. Sensation intact. Vital Signs: 15:04 BP 157 / 78; Pulse 74; Resp 16; Temp 99.2; Pulse Ox 98% ; Pain 5/10; sv 15:43 BP 148 / 71; Pulse 67; Resp 16; Temp 99; Pulse Ox 98% ; sv 16:00 Pain 3/10; sv 16:34 BP 156 / 108; Pulse 73; Resp 21; Pulse Ox 98% ; sv 16:50 BP 134 / 78; Pulse 73; Resp 21; Pulse Ox 97% ; sv 17:59 BP 135 / 69; Pulse 72; Resp 18; Pulse Ox 99% ; sv Icard Coma Score: 15:04 Eye Response: spontaneous(4). Verbal Response: oriented(5). Motor Response: obeys sv commands(6). Total: 15. 15:43 Eye Response: spontaneous(4). Verbal Response: oriented(5). Motor Response: obeys sv commands(6). Total: 15. Trauma Score (Adult): 15:04 Eye Response: spontaneous(1); Verbal Response: oriented(1); Motor Response: obeys sv commands(2); Systolic BP: > 89 mm Hg(4); Respiratory Rate: 10 to 29 per min(4); Icard Score: 15; Trauma Score: 12 15:43 Eye Response: spontaneous(1); Verbal Response: oriented(1); Motor Response: obeys sv commands(2); Systolic BP: > 89 mm Hg(4); Respiratory Rate: 10 to 29 per min(4); Flavio Score: 15; Trauma Score: 12 Procedures: 16:42 Reduction: of the right shoulder, using traction, Immobilized with shoulder nohemi immobilizer. Patient tolerated well. Post reduction film - nvi, by Dr. Lam. MDM: 15:06 Patient medically screened. kb 15:47 Data reviewed: vital signs, nurses notes. Data interpreted: Pulse oximetry: on room air kb is 98 %. Interpretation: normal. 16:39 ED course: Dr Lam at bedside for conscious sedation and shoulder reduction.. kb 17:13 Counseling: I had a detailed discussion with the patient and/or guardian regarding: the kb historical points, exam findings, and any diagnostic results supporting the discharge/admit diagnosis, radiology results, the need for outpatient follow up, a orthopedic surgeon, to return to the emergency department if symptoms worsen or persist or if there are any questions or concerns that arise at home. 12/16 15:12 Order name: Shoulder Right (2 View) XRAY; Complete Time: 15:46 kb 12/16 16:40 Order name: Shoulder Right (2 View) XRAY; Complete Time: 17:13 kb 12/16 15:52 Order name: IV Start; Complete Time: 16:26 kb 12/16 15:52 Order name: Conscious Sedation; Complete Time: 16:26 kb Administered Medications: 15:21 Drug: [place] 10 mg-325 mg 1 tabs Route: PO; sv 16:00 Follow up: Pain 10 Adult; Response: No adverse reaction; Marked relief of symptoms; sv Pain is decreased; RASS: Alert and Calm (0) 16:29 Drug: Versed 2 mg Route: IVP; Site: left hand; sv 16:32 Drug: Versed 1 mg Route: IVP; Site: left hand; sv 17:01 Follow up: Response: No adverse reaction sv 16:33 Drug: Etomidate 5 mg Route: IVP; Site: left hand; sv 16:34 Drug: Etomidate 1 mg Route: IVP; Site: left hand; sv 17:01 Follow up: Response: No adverse reaction sv Disposition: 16:43 Co-signature as Attending Physician, Brennan Lam MD I agree with the assessment and nohemi plan of care. Disposition: 12/17/19 17:14 Discharged to Home. Impression: Anterior dislocation of right humerus - reduced. - Condition is Stable. - Discharge Instructions: Shoulder Dislocation, [id number]. - Medication Reconciliation Form, Thank You Letter, Antibiotic Education, Prescription Opioid Use form. - Follow up: Emergency Department; When: As needed; Reason: Worsening of condition. Follow up: Private Physician; When: 2 - 3 days; Reason: Recheck today's complaints, Continuance of care, Re-evaluation by your physician. Signatures: Dispatcher [employer] Torie Bridges, TAWANDA-Vance NEFF-Rosemarie Vo, RN RN Brennan Kelley MD MD cha Williams, Irene RN RN iw Corrections: (The following items were deleted from the chart) 18:32 17:14 12/17/2019 17:14 Discharged to Home. Impression: Anterior dislocation of right iw humerus - reduced. Condition is Stable. Forms are Medication Reconciliation Form, Thank You Letter, Antibiotic Education, Prescription Opioid Use. Follow up: Emergency Department; When: As needed; Reason: Worsening of condition. Follow up: Private Physician; When: 2 - 3 days; Reason: Recheck today's complaints, Continuance of care, Re-evaluation by your physician. kb
--- NOTE | 2019-12-17 17:15 | ER ---
Nurse's Notes [facility] Name: Puneet Willis Age: 74 yrs Sex: Male : 1945 Arrival Date: 12/17/2019 Time: 15:03 Bed 18 Private MD: Diagnosis: Anterior dislocation of right humerus-reduced Presentation: 12/16 15:04 Chief complaint: EMS states: mechanical fall in the bathroom on Monday. Today while sv picking up his pants he felt his shoulder come out again. Pt was seen here Monday for a fall and hurting the same right arm. Pt presents with a sling on the right arm. Care prior to arrival: None. Mechanism of Injury: Fall from standing position. Trauma event details: Injury occurred in the [facility], Injury occurred: at home. Injury occurred: December 17, 2019. 15:04 Acuity: MICHAELA 4 sv 15:04 Method Of Arrival: EMS: [facility] sv 15:07 Coronavirus screen: Proceed with normal triage. Patient denies a cough. Patient denies sv shortness of breath or difficulty breathing. Patient denies measured and/or subjective temperature greater than 100.4F prior to today's visit. Patient denies travel on a cruise ship or to a country the [facility] currently lists as an affected area. Patient denies contact with known and/or suspected case of COVID-19. Ebola Screen: No symptoms or risks identified at this time. Initial Sepsis Screen: Does the patient meet any 2 criteria? No. Patient's initial sepsis screen is negative. Does the patient have a suspected source of infection? No. Patient's initial sepsis screen is negative. Risk Assessment: Do you want to hurt yourself or someone else? Patient reports no desire to harm self or others. Onset of symptoms was December 17, 2019. Triage Assessment: 15:04 General: Appears in no apparent distress. uncomfortable, well developed, Behavior is sv calm, cooperative, appropriate for age. Pain: Complains of pain in right arm and right shoulder. Neuro: Level of Consciousness is awake, alert, obeys commands, Oriented to person, place, time, situation. Respiratory: Airway is patent Respiratory effort is even, unlabored, Respiratory pattern is regular, symmetrical. Derm: Skin is pink, warm \T\ dry. Trauma Activation: Not Applicable Physician: ED Physician; Name: ; Notified At: ; Arrived At: Physician: General Surgeon; Name: ; Notified At: ; Arrived At: Physician: Radiology; Name: ; Notified At: ; Arrived At: Physician: Respiratory; Name: ; Notified At: ; Arrived At: Physician: Lab; Name: ; Notified At: ; Arrived At: Historical: - Allergies: 15:09 No Known Allergies; sv - PMHx: 15:09 Arthritis; Hypertension; sv - PSHx: 15:09 Prostate; sv - Immunization history: Last tetanus immunization:. - Social history:: Smoking status: Patient denies any tobacco usage or history of. Screenin:04 Abuse screen: Denies threats or abuse. Denies injuries from another. Tuberculosis sv screening: No symptoms or risk factors identified. 15:08 Nutritional screening: No deficits noted. Fall Risk None identified. sv Primary Survey: 15:04 NO uncontrolled hemorrhage observed. A: The patient is alert. Airway: patent, No sv supplemental oxygen in use on arrival. Oral cavity: clear. Breathing/Chest: Respiratory pattern: regular, Respiratory effort: spontaneous, unlabored, Chest inspection: symmetrical rise and fall of the chest. Circulation: Heart tones present. Pulses: palpable right radial artery and left radial artery. Skin color: pink, Skin temperature: warm, dry. Disability Alert. Exposure/Environment: All clothing and personal items were removed. Forensic evidence collection is not deemed to be indicated at this time. Items placed in patient belonging bag. There is no evidence of uncontrolled external bleeding. No obvious injuries are noted at this time. A warming method has been applied: A warm blanket has been provided to the patient. 15:43 Reassessment Airway Airway Patent Oxygen No O2 Oral cavity Clear Trachea Midline sv Breathing/Chest Respiratory pattern Regular Respiratory effort Spontaneous Unlabored Chest inspection Symmetrical Circulation Pulses Palpable Color [place] Temperature Warm Dry Disability Alert. Secondary Survey: 15:04 HEENT: No deficits noted. Gastrointestinal: No deficits noted. : No deficits noted. sv No signs and/or symptoms were reported regarding the genitourinary system. Musculoskeletal: Reports pain in right arm. Assessment: 16:00 Reassessment: Patient appears in no apparent distress at this time. No changes from sv previously documented assessment. Patient and/or family updated on plan of care and expected duration. Pain level reassessed. Patient is alert, oriented x 3, equal unlabored respirations, skin warm/dry/pink. 16:29 Reassessment: Conscious sedation started, see conscious sedation flowsheet. sv 17:46 Reassessment: Pt waiting for transportation home. sv 17:47 Reassessment: Patient appears in no apparent distress at this time. Patient and/or sv family updated on plan of care and expected duration. Pain level reassessed. Patient is alert, oriented x 3, equal unlabored respirations, skin warm/dry/pink. Patient denies pain at this time. Patient states feeling better. Patient states symptoms have improved. 18:31 Reassessment: Patient appears in no apparent distress at this time. Patient and/or iw family updated on plan of care and expected duration. Pain level reassessed. Patient is alert, oriented x 3, equal unlabored respirations, skin warm/dry/pink. Vital Signs: 15:04 BP 157 / 78; Pulse 74; Resp 16; Temp 99.2; Pulse Ox 98% ; Pain 5/10; sv 15:43 BP 148 / 71; Pulse 67; Resp 16; Temp 99; Pulse Ox 98% ; sv 16:00 Pain 3/10; sv 16:34 BP 156 / 108; Pulse 73; Resp 21; Pulse Ox 98% ; sv 16:50 BP 134 / 78; Pulse 73; Resp 21; Pulse Ox 97% ; sv 17:59 BP 135 / 69; Pulse 72; Resp 18; Pulse Ox 99% ; sv [place] Coma Score: 15:04 Eye Response: spontaneous(4). Verbal Response: oriented(5). Motor Response: obeys sv commands(6). Total: 15. 15:43 Eye Response: spontaneous(4). Verbal Response: oriented(5). Motor Response: obeys sv commands(6). Total: 15. Trauma Score (Adult): 15:04 Eye Response: spontaneous(1); Verbal Response: oriented(1); Motor Response: obeys sv commands(2); Systolic BP: > 89 mm Hg(4); Respiratory Rate: 10 to 29 per min(4); [place] Score: 15; Trauma Score: 12 15:43 Eye Response: spontaneous(1); Verbal Response: oriented(1); Motor Response: obeys sv commands(2); Systolic BP: > 89 mm Hg(4); Respiratory Rate: 10 to 29 per min(4); [place] Score: 15; Trauma Score: 12 ED Course: 15:03 Patient arrived in ED. sv 15:03 Rosemarie Dc, SONI is Primary Nurse. sv 15:04 Patient has correct armband on for positive identification. Bed in low position. Call sv light in reach. Side rails up X2. 15:05 Triage completed. sv 15:06 Torie Chacon [facility]-C [facility]. kb 15:06 Brennan Lam MD is Attending Physician. kb 15:08 Arm band placed on. sv 15:08 Patient maintains SpO2 saturation greater than 95% on room air. sv 15:08 Thermoregulation: warm blanket given to patient. sv 15:13 Nurse Practitioner and/or Physician Breastfeeding Peer Counselor to see patient. sv 15:33 Shoulder Right (2 View) XRAY In Process Unspecified. EDMS 15:43 Awaiting radiology results. sv 16:15 Consent for conscious sedation explained by staff, explained by physician, signed by sv patient. 16:35 Assist provider with reduction of right shoulder using manipulation, Set up for sv procedure. Performed by Brennan Lam MD Immobilized with sling, Patient tolerated well. 16:57 Shoulder Right (2 View) XRAY In Process Unspecified. EDMS 18:04 Primary Nurse role handed off by Rosemarie Dc RN sv 18:[address], SONI is Primary Nurse. iw 18:31 IV discontinued, intact, bleeding controlled, No redness/swelling at site. Pressure iw dressing applied. Administered Medications: 15:21 Drug: [place] 10 mg-325 mg 1 tabs Route: PO; sv 16:00 Follow up: Pain 3/10 Adult; Response: No adverse reaction; Marked relief of symptoms; sv Pain is decreased; RASS: Alert and Calm (0) 16:29 Drug: Versed 2 mg Route: IVP; Site: left hand; sv 16:32 Drug: Versed 1 mg Route: IVP; Site: left hand; sv 17:01 Follow up: Response: No adverse reaction sv 16:33 Drug: Etomidate 5 mg Route: IVP; Site: left hand; sv 16:34 Drug: Etomidate 1 mg Route: IVP; Site: left hand; sv 17:01 Follow up: Response: No adverse reaction sv Intake: 15:04 PO: 0ml; Total: 0ml. sv 15:43 PO: 0ml; Total: 0ml. sv Output: 15:04 Urine: 0ml; Total: 0ml. sv 15:43 Urine: 0ml; Total: 0ml. sv Outcome: 17:14 Discharge ordered by . kb 18:31 Discharged to home via wheelchair, with friend. iw 18:31 Condition: good 18:31 Discharge instructions given to patient, Instructed on discharge instructions, follow up and referral plans. Demonstrated understanding of instructions, follow-up care. 18:32 Patient left the ED. iw Signatures: Dispatcher [employer] EDMS Torie Chacon, FILLER PICKER-C TAWANDA-Rosemarie Vo RN RN sv Maribel Way RN RN iw Corrections: (The following items were deleted from the chart) 15:12 15:04 Chief complaint: EMS states: mechanical fall in the bathroom, while picking up sv his pants to put them back on and landed on his right arm. Pt was seen here Monday for a fall and hurting the same right arm. Pt presents with a sling on the right arm. sv
[2019-12-17 18:47] VITALS: TEMP 99
[2019-12-17 18:52] VITALS: BP 135/69; O2SAT 99
== END 2019-12-17 18:32 | disposition home or self-care (01) ==
LOC: ER 14:58
PROC: 0RSJXZZ Reposition Right Shoulder Joint, External Approach (ICD-10-PCS; principal; 2019-12-17)
DX: S53.114A Anterior dislocation of right ulnohumeral joint, initial encounter (principal); W19.XXXA Unspecified fall, initial encounter; Y93.F9 Activity, other caregiving; Y92.003 Bedroom of unspecified non-institutional (private) residence as the place of occurrence of the external cause; I10 Essential (primary) hypertension
CPT/HCPCS: 73030 ×2; 96375; 96374; 99285; 23655; J2250; J7030

== ENCOUNTER 2019-12-21 14:35 | Emergency (ER) | payer OTHER ==
--- OUTSIDE RECORDS SUMMARY | 2019-12-21 14:37 | XMS REPORT ---
[...] End Status Dosage System Date Date Amlodipine [facility] 04624620607 10 MG Orally Active take one Besylate Once a day tablet by mouth once daily Finasteride [facility] 06920405170 5MG Orally Once Active 1 tablet a day Tamsulosin HCl [facility] 97226673435 0.4 MG Orally January Active 1 capsule Once a day 2019 Donepezil HCl ND 32562044011 10 MG Orally February 22, Active 1 tablet Once a day 2019 at bedtime Belsomra ND 07534260468 10 MG Orally Apr 12, Active 1 tab let Once a day 2018 at bedtime as needed Losartan [facility] 53995921153 100-25 MG Orally Active ta ke 1 Potassium-HCTZ Once a day tablet by mouth every day Results No Known Results Summary Purpose eClinicalWorks Submission
--- OUTSIDE RECORDS SUMMARY | 2019-12-21 14:37 | XMS REPORT ---
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 Memori a with with l single single Outpati episode, episode, ent remission remission Clin ics status status unspecifie unspecifie d d BPH loc w BPH loc w Problem Active [facility] urin urin [facility] - obs/LUTS obs/LUTS Memori a l Outpati ent Clinics Alcohol Alcohol Problem Active [facility] abuse abuse [facility] - [facility] Essential Essential Problem Active [facility] (primary) (primary) [facility] - hypertensi hypertensi Me moria on on l Outpati ent Clinics Primary Primary Problem Active [facility] osteoarthr osteoarthr [facility]a kes - itis of itis of [facility]oria right knee right knee l Outpati ent Clinics 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 Memori a l Outpati ent Clinics Other Other Problem Active [facility]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 [facility] - pain pain [facility] l Outpati ent Clinics Dorsalgia, Dorsalgia, Problem Active [facility] unspecifie unspecifie [place]a kes - d d [facility]oria l Outpati ent Clinics BPH BPH Problem Active [facility] without without [facility] - obstructio obstructio Me moria n/lower n/lower l urinary urinary Outpati tract tract ent symptoms symptoms Clinic s 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 [facility]a kes - athy athy Memoria l Outpati ent Clinics Stage 2 Stage [address] [facility]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 [facility] - kidney kidney [facility] disease disease [facility] Localized Localized Diagnosis Active [facility] edema edema [facility][note 3] Allergies, Adverse Reactions, Alerts Allergy Allergy Status Severity Reaction(s) Onset Inactive Treating Comm ents Source Name Type Date Date Clinician Lisinopr Adverse Active cough [facility] il Reaction [facility][note 3] Medications Ordered Filled Start Stop Current Ordering Indication Dosage Frequency Signature Comments Components Source Medication Medication Date Date Medication? Clinician (SIG) Name Name Metformin Metformin Yes Ly [address] [facility] HCl HCl 4-17 [place] with a [facility] - 00:00: meal Memoria [facility] Donepezil Donepezil Yes Ly [address] [facility] HCl HCl 7-19 [place] at bedtime [facility] - 00:00: Memoria 00 [facility] Belsomra Belsomra Yes Ly [address] [facility] 9-06 [place] at bedtime [facility] - 00:00: as needed Memoria 00 [facility] Amlodipine Amlodipine Yes Ly take one [facility] Besylate Besylate [place] tablet by L ukes - mouth once Memoria daily [facility] Finasteride Finasteride Yes Ly [address] [facility] Losartan Losartan Yes Ly take [address] [facility] Potassium-H Potassium-H [place] tablet by [facility] - CTZ CTZ mouth Memoria every day [facility] Tamsulosin Tamsulosin Ly [address] [facility] HCl HCl 06-14 [place] [facility] - 00:00 Memoria :00 [facility] Procedures This patient has no known procedures. Encounters Start End Encounter Admission Attending Care Care Encounter Source Date/Time Date/Time Type Type Clinicians Facility Department ID 2019-11-22 2019-11-22 Outpatient Bret Ibrahim [id number] [facility] 15:20:00 15:20:00 [place] [facility] 2019-11-04 2019-11-04 Outpatient Bret Ibrahim [id number] [facility] 10:00:00 10:00:00 [facility] Medicine Outpati ent Clinics 2019-10-21 2019-10-21 [facility] [id number] [facility] 10:00:00 10:00:00 [facility] Medicine Outpati ent Clinics 2019-05-24 2019-05-24 [facility] [id number] [facility] 16:27:00 16:27:00 [facility] Medicine Outpati ent Clinics 2019-02-25 2019-02-25 [facility] [id number] [facility] 09:47:00 09:47:00 [facility] Medicine Outpati ent Clinics 2019-02-22 2019-02-22 [facility] [id number] 08:30:00 08:30:00 [facility] Medicine Outpati ent Clinics 2019-01-15 2019-01-15 [facility] [id number] 16:02:00 16:02:00 [facility] Medicine Outpati ent Clinics 2018-11-19 2018-11-19 [facility] [id number] 11:15:00 11:15:00 [facility] Medicine Outpati ent Clinics 2018-05-15 2018-05-15 [facility] [id number] [facility] 13:15:00 13:15:00 [facility] Medicine Outpati ent Clinics 2018-04-12 2018-04-12 [facility] [id number] [facility] 13:00:00 13:00:00 [facility] Medicine Outpati ent Clinics Results This patient has no known results.
--- OUTSIDE RECORDS SUMMARY | 2019-12-21 14:37 | XMS REPORT ---
[...] Status Dosage System Date Date Tamsulosin HCl [facility] [id number] 0.4 MG Orally Active 1 capsule Once a day Results No Known Results Summary Purpose eClinicalWorks Submission
--- OUTSIDE RECORDS SUMMARY | 2019-12-21 14:37 | XMS REPORT ---
[...] End Status Dosage System Date Date Amlodipine [facility] 56303187806 10 MG Orally Active take one Besylate Once a day tablet by mouth once daily Tamsulosin HCl [facility] 34494808191 0.4 MG Orally January Active 1 capsule Once a day 2019 Belsomra [facility] 90894071625 10 MG Orally Apr 12, Active 1 tab let Once a day 2017 at bedtime as needed Finasteride ND 09143312883 5MG Orally Once Active 1 tablet a day Donepezil HCl ND 75669220046 10 MG Orally February 22, Active 1 tablet Once a day 2018 at bedtime Losartan ND 94750198508 100-25 MG Orally Active ta ke 1 Potassium-HCTZ Once a day tablet by mouth every day Results No Known Results Summary Purpose eClinicalWorks Submission
--- OUTSIDE RECORDS SUMMARY | 2019-12-21 14:37 | XMS REPORT ---
[...] End Status Dosage System Date Date Belsomra [facility] 36734300243 10 MG Orally Apr 12, Active 1 tab let Once a day 2017 at bedtime as needed Losartan ND 97535248215 100-25 MG Active take 1 Potassium-HCTZ Orally Once a tab let by day mouth every day Metformin HCl ND 74770983310 500 MG Orally November Active 1 tablet daily with 2019 with a dinner meal Finasteride ND 89996244389 5MG Orally Once Active 1 tablet a day Amlodipine ND 61304050699 10 MG Orally Inactive antonette e one Besylate Once a day tablet by mouth once daily Tamsulosin HCl ND 59639295141 0.4 MG Orally January Active 1 capsule Once a day 2019 Donepezil HCl ND 93036464590 10 MG Orally February 22, Active 1 tablet Once a day 2018 at bedtime Results No Known Results Summary Purpose eClinicalWorks Submission
[2019-12-21] MEDS ORDERED: MIDAZOLAM HCL 2 MG/2 ML INJ ONE (15:31)
[2019-12-21] MEDS ORDERED: FENTANYL CITR 100 MCG/2 ML ONE (15:32)
--- NOTE | 2019-12-21 16:14 | RAD REPORT ---
EXAM DESCRIPTION: Shoulder Right 2 View - 12/21/2019 3:04 pm CLINICAL HISTORY: Pain;Deformity COMPARISON: Shoulder Right 2 View dated 12/17/2019; Shoulder Right 2 View dated 12/17/2019; Shoulder Right 2 View dated 12/21/2019 TECHNIQUE: Internal and external rotation views of the right shoulder were obtained. FINDINGS: Anterior dislocation is again noted. Small crescent shaped bone density is seen in the so ft tissues lateral to the acromion. AC joint degenerative changes again noted. No acute fracture benton ge seen. IMPRESSION: Anterior dislocation right humeral head.
--- NOTE | 2019-12-21 16:38 | RAD REPORT ---
EXAM DESCRIPTION: RAD - Shoulder 1 View - 12/21/2019 4:23 pm CLINICAL HISTORY: Right shoulder dislocation, post reduction maneuvers COMPARISON: Shoulder 1 View dated 12/09/2019 FINDINGS: Single view right shoulder was obtained labeled post reduction 1. Anterior dislocation remains in place. IMPRESSION: Persistent anterior dislocation.
--- NOTE | 2019-12-21 16:39 | RAD REPORT ---
EXAM DESCRIPTION: RAD - Shoulder 1 View - 12/21/2019 4:23 pm CLINICAL HISTORY: post reduction, anterior dislocation with post reduction maneuvers COMPARISON: Shoulder 1 View dated 12/21/2019 FINDINGS: Humeral head has been reduced to anatomic position. No suspicious or unexpected finding. IMPRESSION: Reduction of right shoulder anterior dislocation.
--- NOTE | 2019-12-21 17:17 | ER ---
[facility] Name: Pnueet Willis Age: 74 yrs Sex: Male : 1945 Arrival Date: 12/21/2019 Time: 14:36 Bed 2 Private MD: Diagnosis: Recurrent dislocation, right shoulder Presentation: 12/20 14:36 Chief complaint: EMS states: FALL WITH R SHOULDER DEFORMITY. Coronavirus screen: bp Proceed with normal triage. Ebola Screen: No symptoms or risks identified at this time. Initial Sepsis Screen: Does the patient meet any 2 criteria? No. Patient's initial sepsis screen is negative. Does the patient have a suspected source of infection? No. Patient's initial sepsis screen is negative. Risk Assessment: Do you want to hurt yourself or someone else? Patient reports no desire to harm self or others. Onset of symptoms is unknown. Care prior to arrival: Glucose check: 103. 14:36 Method Of Arrival: EMS: [facility] bp 14:36 Acuity: MICHAELA 3 bp Triage Assessment: 14:40 General: Appears in no apparent distress. comfortable, Behavior is calm, cooperative, bp appropriate for age. Pain: Complains of pain in RIGHT SHOULDER. EENT: No deficits noted. Neuro: No deficits noted. Cardiovascular: No deficits noted. Respiratory: No deficits noted. GI: No signs and/or symptoms were reported involving the gastrointestinal system. : No signs and/or symptoms were reported regarding the genitourinary system. Derm: No deficits noted. Musculoskeletal: Bony deformity noted of RIGHT SHOULDER. Injury Description: Deformity sustained to RIGHT SHOULDER. Historical: - Allergies: 14:40 No Known Allergies; bp - Home Meds: 14:40 amlodipine oral [Active]; tamsulosin Oral [Active]; bp - PMHx: 14:40 Arthritis; Hypertension; bp - Immunization history:: Adult Immunizations up to date. - Social history:: Smoking status: Patient denies any tobacco usage or history of. - Family history:: not pertinent. - Hospitalizations: : No recent hospitalization is reported. Screenin:40 Abuse screen: Denies threats or abuse. Denies injuries from another. Nutritional bp screening: No deficits noted. Tuberculosis screening: No symptoms or risk factors identified. 14:40 Fall Risk Fall in past 12 months (25 points). No secondary diagnosis (0 pts). No IV (0 bp pts). Ambulatory Aid- None/Bed Rest/Nurse Assist (0 pts). Gait- Normal/Bed Rest/Wheelchair (0 pts) Mental Status- Oriented to own ability (0 pts). Total Conde Fall Scale indicates Low Risk Score (25-44 pts). Fall prevention measures have been instituted. Side Rails Up X 2 Placed close to Nursing Station Frequent Obs/Assesments occuring As available Patient and Family Educated on Fall Prevention Program and strategies. Assessment: 14:40 General: SEE TRIAGE NOTE. bp 16:16 Reassessment: PER ATTENDING, RIGHT SHOULDER SUCCESFULLY REDUCED, SPLINT IN POSITION. bp 17:15 Reassessment: Patient appears in no apparent distress at this time. Patient and/or rb1 family updated on plan of care and expected duration. Pain level reassessed. Patient is alert, oriented x 3, equal unlabored respirations, skin warm/dry/pink. 19:07 Reassessment: PT D/C HOME AMBULATORY, DX WITH RECURRENT DISLOCATION. mg2 Vital Signs: 14:36 BP 158 / 83; Pulse 79; Resp 17; Temp 97.9; Pulse Ox 95% ; bp 16:18 BP 121 / 84; Pulse 65; Resp 16; Pulse Ox 95% ; bp 17:14 BP 132 / 77; Pulse 67; Resp 17; Pulse Ox 98% ; rb1 ED Course: 14:36 Patient arrived in ED. bp 14:40 Triage completed. bp 14:40 Imer Root MD is Attending Physician. rn 14:40 Arm band placed on. bp 14:40 Patient has correct armband on for positive identification. Bed in low position. Call bp light in reach. Side rails up X2. 14:50 Roland De Santiago, RN is Primary Nurse. bp 15:04 Shoulder Right 2 View In Process Unspecified. EDMS 16:12 Assist provider with reduction of left shoulder using Set up for procedure. Performed bp by Imer Root MD Immobilized with Patient tolerated well. 16:23 Shoulder 1 View In Process Unspecified. EDMS 16:23 Shoulder 1 View In Process Unspecified. EDMS 17:16 Ugo Jones MD is Referral Physician. rn 19:08 IV discontinued, intact, bleeding controlled, No redness/swelling at site. Pressure mg2 dressing applied. Administered Medications: 16:00 Not Given (Duplicate Order): fentaNYL (PF) 75 mcg IVP once; RASS on ADMIN: Combtv4, bp Very Agttd3, Agttd2, Rstlss1, AlertClm0, Drwsy-1, Lt Sdtn-2, Mod Sdtn-3, Dp Sdtn-4, UnArsble-5 16:02 Not Given (Other Intervention Used): Versed 2 mg IVP once bp 16:05 Drug: fentaNYL (PF) 150 mcg {Note: 200 MCG GIVEN, PER MD.} Route: IVP; Site: left bp forearm; 16:06 Drug: Versed 4 mg Route: IVP; Site: left forearm; bp Outcome: 17:16 Discharge ordered by MD. rn 19:08 Discharged to home via wheelchair. mg2 19:08 Condition: stable 19:08 Discharge instructions given to patient, Instructed on discharge instructions, follow up and referral plans. Demonstrated understanding of instructions, follow-up care. 19:09 Patient left the ED. mg2 Signatures: Dispatcher [employer] EDMS Imer Root MD MD rn Barber, Rebecca, RN RN rb1 Roland De Santiago, SONI RN Venkata Rodriguez, SONI RN mg2 Corrections: (The following items were deleted from the chart) 14:43 14:40 Fall Risk None identified. bp bp
--- NOTE | 2019-12-21 17:17 | EDPHYS ---
Physician Documentation [facility] Name: Puneet Willis Age: 74 yrs Sex: Male : 1945 Arrival Date: 12/21/2019 Time: 14:36 Bed 2 Private MD: ED Physician Imer Root HPI: 12/20 16:16 This 74 yrs old Male presents to ER via EMS with complaints of Shoulder Injury.rn 16:16 The patient or guardian complains of decreased range of motion, deformity. right rn shoulder. Onset: The symptoms/episode began/occurred just prior to arrival. Modifying factors: the symptoms are alleviated by nothing. The symptoms are aggravated by movement. Severity of symptoms: At their worst the symptoms were moderate, in the emergency department the symptoms are unchanged. The patient has experienced similar episodes in the past. Reports going to eat soup, feels like dislocated right shoulder again. Has not eaten anything today. No other injury. Identical to previous episodes. . Historical: - Allergies: 14:40 No Known Allergies; bp - Home Meds: 14:40 amlodipine oral [Active]; tamsulosin Oral [Active]; bp - PMHx: 14:40 Arthritis; Hypertension; bp - Immunization history:: Adult Immunizations up to date. - Social history:: Smoking status: Patient denies any tobacco usage or history of. - Family history:: not pertinent. - Hospitalizations: : No recent hospitalization is reported. ROS: 16:16 Constitutional: Negative for fever, chills, and weight loss, MS/Extremity: + right rn shoulder pain and decreased ROM Neuro: Negative for headache, weakness, and seizure. Exam: 16:16 Constitutional: This is a well developed, well nourished patient who is awake, alert, rn and in no acute distress. MS/ Extremity: Pulses equal, no cyanosis. Neurovascular intact. Decreased ROM right shoulder with empty glenoid. Vital Signs: 14:36 BP 158 / 83; Pulse 79; Resp 17; Temp 97.9; Pulse Ox 95% ; bp 16:18 BP 121 / 84; Pulse 65; Resp 16; Pulse Ox 95% ; bp 17:14 BP 132 / 77; Pulse 67; Resp 17; Pulse Ox 98% ; rb1 Procedures: 16:16 Reduction: of the right shoulder, using traction, manipulation, Immobilized with sling, rn Patient tolerated well. Post reduction film - reveals normal alignment. MDM: 14:40 Patient medically screened. rn 16:16 Differential diagnosis: Anterior dislocation without fracture. Data reviewed: vital rn signs, nurses notes, radiologic studies, plain films. Test interpretation: by ED physician or midlevel provider: plain radiologic studies, Xray right shoulder + for anterior dislocation.. Counseling: I had a detailed discussion with the patient and/or guardian regarding: the historical points, exam findings, and any diagnostic results supporting the discharge/admit diagnosis, radiology results, the need for outpatient follow up, to return to the emergency department if symptoms worsen or persist or if there are any questions or concerns that arise at home. Response to treatment: the patient's symptoms have markedly improved after treatment, the patient's condition has returned to base line, and as a result, I will discharge patient. 16:48 Special discussion: I discussed with the patient/guardian in detail that at this point rn there is no indication for admission to the hospital. It is understood, however, that if the symptoms persist or worsen the patient needs to return immediately for re-evaluation. Based on the history and exam findings, there is no indication for further emergent testing or inpatient evaluation. I discussed with the patient/guardian the need to see the orthopedic surgeon for further evaluation of the symptoms. 12/20 15:04 Order name: Shoulder Right 2 View; Complete Time: 16:48 EDMS 12/20 16:21 Order name: Shoulder 1 View; Complete Time: 16:48 EDMS 12/20 16:22 Order name: Shoulder 1 View; Complete Time: 16:48 EDMS 12/20 14:45 Order name: NPO; Complete Time: 14:50 rn Administered Medications: 16:00 Not Given (Duplicate Order): fentaNYL (PF) 75 mcg IVP once; RASS on ADMIN: Combtv4, bp Very Agttd3, Agttd2, Rstlss1, AlertClm0, Drwsy-1, Lt Sdtn-2, Mod Sdtn-3, Dp Sdtn-4, UnArsble-5 16:02 Not Given (Other Intervention Used): Versed 2 mg IVP once bp 16:05 Drug: fentaNYL (PF) 150 mcg {Note: 200 MCG GIVEN, PER MD.} Route: IVP; Site: left bp forearm; 16:06 Drug: Versed 4 mg Route: IVP; Site: left forearm; bp Disposition: 12/21/19 17:16 Discharged to Home. Impression: Recurrent dislocation, right shoulder. - Condition is Stable. - Discharge Instructions: Shoulder Dislocation, Surgery for Anterior Shoulder Instability, Care After Ph II Rehab-SportsMed, Surgery for Shoulder Instability, Care After With Phase II Rehab-SportsMed, Surgery for Recurrent Shoulder Laxity and Instability, Care After with Rehab. - Medication Reconciliation Form, Thank You Letter, Antibiotic Education, Prescription Opioid Use form. - Follow up: Dr. Ugo Jones; When: As needed; Reason: Recheck today's complaints, Re-evaluation by your physician. - Problem is an ongoing problem. - Symptoms have improved. Signatures: Dispatcher [employer] EDMS Imer Root MD MD rn Peltier, Brian RN RN bp Venkata Unger RN RN mg2 Corrections: (The following items were deleted from the chart) 15:04 14:45 Shoulder 1 View+RAD.RAD.BRZ ordered. EDMS EDMS 16:21 16:03 Shoulder Right 2 View+RAD.RAD.BRZ ordered. EDMS EDMS 16:22 16:10 Shoulder Right 2 View+RAD.RAD.BRZ ordered. EDMS EDMS 19:09 17:16 12/21/2019 17:16 Discharged to Home. Impression: Recurrent dislocation, right mg2 shoulder. Condition is Stable. Discharge Instructions: Shoulder Dislocation, Surgery for Anterior Shoulder Instability, Care After Ph II Rehab-SportsMed, Surgery for Shoulder Instability, Care After With Phase II Rehab-SportsMed, Surgery for Recurrent Shoulder Laxity and Instability, Care After with Rehab. Forms are Medication Reconciliation Form, Thank You Letter, Antibiotic Education, Prescription Opioid Use. Follow up: Dr. Ugo Jones; When: As needed; Reason: Recheck today's complaints, Re-evaluation by your physician. Problem is an ongoing problem. Symptoms have improved. rn
[2019-12-21 19:12] VITALS: TEMP 97.9
[2019-12-21 19:15] VITALS: BP 132/77; O2SAT 98
== END 2019-12-21 19:09 | disposition home or self-care (01) ==
LOC: ER 14:35
PROC: 0RSJXZZ Reposition Right Shoulder Joint, External Approach (ICD-10-PCS; principal; 2019-12-21)
DX: M24.411 Recurrent dislocation, right shoulder (principal); I10 Essential (primary) hypertension
CPT/HCPCS: 73020 ×2; 73030; 96375; 96374; 99284; 23650; J2250; J3010

== ENCOUNTER 2020-01-13 09:02 | Observation (INO) | payer OTHER ==
[2020-01-13 10:24] LABS: Absolute Lymphocytes (CBC) 1.5 K/uL (0.7-4.9); Basophils % 0.9 % (0-1.3); Hematocrit 45.9 % (39.6-49.0); Lymphocytes % 10.5 % (15.3-44.8); MPV 9.8 fL (7.6-11.3); RBC Red Blood Cell Count 4.77 M/uL (4.33-5.43)
[2020-01-13 10:33] LABS: Protime INR 1.18
[2020-01-13 10:41] LABS: Potassium 3.4 mmol/L (3.5-5.1); Troponin (Emerg Dept Use Only) 0.09 ng/mL (0.0-0.045)
--- NOTE | 2020-01-13 11:25 | RAD REPORT ---
EXAM DESCRIPTION: RAD - Chest Single View - 01/13/2020 11:14 am CLINICAL HISTORY: shoulder dislocation Chest pain. COMPARISON: Chest Single View dated 12/09/2019; Chest Pa And Lat (2 Views) dated 10/24/2019; CHEST PA A ND LAT 2 VIEW dated 06/01/2015; CHEST PA AND LAT 2 VIEW dated 05/03/2015 FINDINGS: Portable technique limits examination quality. The lungs are mildly underinflated but grossly clear. The heart is normal in size. Right glenohumeral joint dislocation noted.
--- NOTE | 2020-01-13 11:26 | RAD REPORT ---
EXAM DESCRIPTION: RAD - Shoulder Right 2 View - 01/13/2020 11:14 am CLINICAL HISTORY: DEFORMITY Pain and swelling COMPARISON: Shoulder Right 2 View dated 12/21/2019 FINDINGS: Subcoracoid dislocation of the humeral head anteriorly is suspected. Moderate AC joint deg enerative changes. No fracture is evident.
--- OUTSIDE RECORDS SUMMARY | 2020-01-13 11:57 | XMS REPORT | Continuity of Care Document ---
:1945 Author Organization [facility] t Address [address] [place] [address] Care Team Providers Name Role Phone Unavailable [...] St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 [facility] kidney [facility] disease disease [facility] Localized Localized Diagnosis Active [facility] edema edema [facility] Allergies, Adverse Reactions, Alerts Allergy Allergy Status Severity Reaction(s) Onset Inactive Treating Comm ents Source Name Type Date Date Clinician Lisinopr Adverse Active cough [facility] Reaction [facility] Medications Ordered Filled Start Stop Current Ordering Indication Dosage Frequency Signature Comments Components Source Medication Medication Date Date Medication? Clinician (SIG) Name Name Metformin Metformin Yes Ly [address] [facility] HCl HCl 4-17 [facility] with a [facility] - 00:00: meal [facility] Donepezil Donepezil Yes Ly [address] [facility] HCl HCl 7-19 [facility] at bedtime [facility] - [facility]: [facility] 00 [facility] Belsomra Belsomra Yes Ly [address] [facility] 9-06 [facility] at bedtime [facility] - [facility]: as needed [facility] 00 [facility] Amlodipine Amlodipine Yes Ly take one [facility] Besylate Besylate [place] tablet by [facility] - mouth once Memoria daily [facility] Finasteride Finasteride Yes Ly [address] [facility] Losartan Yes Ly take [address] [facility] Potassium-H Potassium-H [place] tablet by [facility] - CTZ CTZ mouth Memoria every day [facility] Tamsulosin Tamsulosin No Ly [address] [facility] HCl HCl 06-14 [facility] - 00:00 [facility] :00 [facility] Procedures This patient has no known procedures. Encounters Start End Encounter Admission Attending Care Care Encounter Source Date/Time Date/Time Type Type Clinicians Facility Department ID 2019-11-22 2019-11-22 Outpatient Bret Ibrahim [id number] [facility] 15:20:00 15:20:00 [facility] Family Medicine Medicine [facility] 2019-11-04 2019-11-04 Outpatient Bret Ibrahim [id number] [facility] 10:00:00 10:00:00 [facility] Medicine Outpati ent Clinics 2019-10-21 2019-10-21 [facility] [id number] 10:00:00 10:00:00 [facility] Medicine Outpati [facility] Clinics 2019-05-24 2019-05-24 [facility] [id number] [facility] 16:27:00 16:27:00 [facility] Medicine Outpati [facility] Clinics 2019-02-25 2019-02-25 [facility] [id number] [facility] 09:47:00 09:47:00 [facility] Medicine Outpati ent Clinics 2019-02-22 2019-02-22 [facility] [id number] [facility] 08:30:00 08:30:00 [facility] Medicine Outpati ent Clinics 2019-01-15 2019-01-15 [facility] [id number] [facility] 16:02:00 16:02:00 [facility] Medicine Outpati ent Clinics 2018-11-19 2018-11-19 [facility] [id number] [facility] 11:15:00 11:15:00 [facility] Medicine Outpati ent Clinics 2018-05-15 2018-05-15 [facility] [id number] [facility] 13:15:00 13:15:00 [facility] Medicine Outpati ent Clinics 2018-04-12 2018-04-12 [facility] [id number] [facility] 13[facility]00:00 13:00:00 [facility] Medicine Outpati [facility] Clinics Results This patient has no known results.
--- OUTSIDE RECORDS SUMMARY | 2020-01-13 11:57 | XMS REPORT ---
[...] Status Dosage System Date Date Amlodipine [facility] 18126743518 10 MG Orally Active take one Besylate Once a day tablet by mouth once daily Finasteride [facility] 14783965418 5MG Orally Once Active 1 tablet a day Tamsulosin HCl [facility] 12508888266 0.4 MG Orally January Active 1 capsule Once a day 2019 Donepezil HCl ND 06752312758 10 MG Orally February 22, Active 1 tablet Once a day 2019 at bedtime Belsomra ND 63247923195 10 MG Orally Apr 12, Active 1 tab let Once a day 2018 at bedtime as needed Losartan [facility] 78669821016 100-25 MG Orally Active ta ke 1 Potassium-HCTZ Once a day tablet by mouth every day Results No Known Results Summary Purpose eClinicalWorks Submission
--- OUTSIDE RECORDS SUMMARY | 2020-01-13 11:57 | XMS REPORT ---
[...] End Status Dosage System Date Date Amlodipine [facility] 14128491268 10 MG Orally Active take one Besylate Once a day tablet by mouth once daily Tamsulosin HCl [facility] 13113202951 0.4 MG Orally January Active 1 capsule Once a day 2019 Belsomra [facility] 86337472377 10 MG Orally Apr 12, Active 1 tab let Once a day 2017 at bedtime as needed Finasteride ND 96292629482 5MG Orally Once Active 1 tablet a day Donepezil HCl ND 21761175369 10 MG Orally February 22, Active 1 tablet Once a day 2018 at bedtime Losartan ND 82216895069 100-25 MG Orally Active ta ke 1 Potassium-HCTZ Once a day tablet by mouth every day Results No Known Results Summary Purpose eClinicalWorks Submission
--- OUTSIDE RECORDS SUMMARY | 2020-01-13 11:58 | XMS REPORT ---
[...] End Status Dosage System Date Date Belsomra [facility] 43615137096 10 MG Orally Apr 12, Active 1 tab let Once a day 2017 at bedtime as needed Losartan ND 81175064170 100-25 MG Active take 1 Potassium-HCTZ Orally Once a tab let by day mouth every day Metformin HCl ND 47816234294 500 MG Orally November Active 1 tablet daily with 2019 with a dinner meal Finasteride ND 25505178452 5MG Orally Once Active 1 tablet a day Amlodipine ND 96572563988 10 MG Orally Inactive antonette e one Besylate Once a day tablet by mouth once daily Tamsulosin HCl ND 37401067125 0.4 MG Orally January Active 1 capsule Once a day 2019 Donepezil HCl ND 04414358484 10 MG Orally February 22, Active 1 tablet Once a day 2018 at bedtime Results No Known Results Summary Purpose eClinicalWorks Submission
[2020-01-13] MEDS ORDERED: KETOROLAC 30 MG/ML INJ ONE (13:59)
[2020-01-13] MEDS ORDERED: DIAZEPAM 10 MG/2 ML INJ SYRINGE ONE (13:59)
[2020-01-13] MEDS ORDERED: propofoL 200 MG/20 ML VIAL IV ONE (18:22)
--- NOTE | 2020-01-13 18:37 | RAD REPORT ---
EXAM DESCRIPTION: RAD - Shoulder Right 2 View - 01/13/2020 6:06 pm CLINICAL HISTORY: Right shoulder pain FINDINGS: Right humeral head dislocation anteriorly persists. No fracture visualized
--- NOTE | 2020-01-13 19:10 | ER ---
Nurse's Notes [facility] Name: Puneet Willis Age: 74 yrs Sex: Male : 1945 Arrival Date: 01/13/2020 Time: 09:08 Bed 15 Private MD: Diagnosis: Recurrent right shoulder dislocation - reduced;Fall on same level from slipping, tripping and stumbling with subsequent striking against object;Elevated troponin Presentation: 01/12 09:08 Chief complaint: Patient states: "I fell out of bed this morning and couldn't get up so aa5 I crawled to the restroom". EMS reports pt was found on floor upon arrival. Right shoulder deformity noted. Abrasions noted to yogi knees and left elbow. Pt states he has an appointment with Dr. Jones (ortho) for frequent shoulder dislocations after falls. Care prior to arrival: None. Mechanism of Injury: Fall out of bed. Trauma event details: Injury occurred in the [facility], Injury occurred: at home. Injury occurred: January 13, 2020. 09:08 Acuity: MICHAELA 3 aa5 09:08 Method Of Arrival: EMS: [facility] aa5 09:08 Coronavirus screen: Proceed with normal triage. Patient denies a cough. Patient denies aa5 shortness of breath or difficulty breathing. Patient denies measured and/or subjective temperature greater than 100.4F prior to today's visit. Patient denies travel on a cruise ship or to a country the [facility] currently lists as an affected area. Patient denies contact with known and/or suspected case of COVID-19. 09:08 Ebola Screen: Patient negative for fever greater than or equal to 101.5 degrees aa5 Fahrenheit, and additional compatible Ebola Virus Disease symptoms. 09:08 Initial Sepsis Screen: Does the patient meet any 2 criteria? No. Patient's initial aa5 sepsis screen is negative. Does the patient have a suspected source of infection? No. Patient's initial sepsis screen is negative. Risk Assessment: Do you want to hurt yourself or someone else? Patient reports no desire to harm self or others. Onset of symptoms was January 13, 2020. Trauma Activation: Not Applicable Physician: ED Physician; Name: ; Notified At: ; Arrived At: Physician: General Surgeon; Name: ; Notified At: ; Arrived At: Physician: Radiology; Name: ; Notified At: ; Arrived At: Physician: Respiratory; Name: ; Notified At: ; Arrived At: Physician: Lab; Name: ; Notified At: ; Arrived At: Historical: - Allergies: 09:08 No Known Allergies; aa5 - PMHx: 09:08 Arthritis; Hypertension; aa5 - Immunization history:: Adult Immunizations unknown. - Social history:: Smoking status: Patient reports the use of cigarette tobacco products, smokes one-half pack cigarettes per day, Patient uses alcohol, occasionally. Pt states "I drank 2 beers yesterday" . - Immunization history: Last tetanus immunization: unknown. Screenin:50 Abuse screen: Denies threats or abuse. Nutritional screening: No deficits noted. em Tuberculosis screening: No symptoms or risk factors identified. Fall Risk Fall in past 12 months (25 points). Gait- Impaired (20 pts.). Mental Status- Overestimates/Forgets Limitations (15 pts.). Total Conde Fall Scale indicates High Risk Score (45 or more points). Side Rails Up X 2 1:1 Attendant Assigned Family Present and informed to notify staff if the need to leave the bedside. Primary Survey: 09:08 NO uncontrolled hemorrhage observed. A: The patient is alert. Airway: patent. aa5 Breathing/Chest: Chest inspection: symmetrical rise and fall of the chest. Circulation: Skin color: pink. Disability Alert. Exposure/Environment: There is no evidence of uncontrolled external bleeding. 19:20 Reassessment Airway Airway Patent Breathing/Chest Respiratory pattern Regular ea Respiratory effort Spontaneous Unlabored Disability Alert. Assessment: 09:50 General: Appears in no apparent distress. comfortable, Behavior is calm, cooperative, em appropriate for age. Pain: Complains of pain in anterior aspect of right shoulder Pain currently is 10 out of 10 on a pain scale. Neuro: Level of Consciousness is awake, alert, obeys commands, Oriented to person, place, time, situation, Appropriate for age. Cardiovascular: Capillary refill < 3 seconds Patient's skin is warm and dry. Respiratory: Airway is patent Respiratory effort is even, unlabored, Respiratory pattern is regular, symmetrical. GI: Abdomen is flat, Patient currently denies nausea, vomiting. Derm: Skin is intact, is healthy with good turgor, Skin is pink, warm \\T\\ dry. Musculoskeletal: Capillary refill < 3 seconds, Range of motion: limited in right shoulder. 11:40 Reassessment: Patient appears in no apparent distress at this time. Patient and/or em family updated on plan of care and expected duration. Pain level reassessed. Patient is alert, oriented x 3, equal unlabored respirations, skin warm/dry/pink. assisted pt with bedside urinal, tolerated well. 13:04 Reassessment: Patient appears in no apparent distress at this time. Patient and/or em family updated on plan of care and expected duration. Pain level reassessed. Patient is alert, oriented x 3, equal unlabored respirations, skin warm/dry/pink. 14:06 Reassessment: Patient appears in no apparent distress at this time. Patient and/or em family updated on plan of care and expected duration. Pain level reassessed. Patient is alert, oriented x 3, equal unlabored respirations, skin warm/dry/pink. 14:44 Reassessment: Dr. Conrad and Deana, MORTGAGE LOAN ASSISTANT attempted to reduce right shoulder, em unsuccessful attempt. 17:38 Reassessment: Dr. Daniel at bedside,he thinks pt right shoulder is in place, repeat em films will be repeated, provider notified. 18:20 Reassessment: Patient appears in no apparent distress at this time. pt consented for em conscious sedation. 18:45 General: Appears Behavior is cooperative, appropriate for age. Neuro: Level of em Consciousness is awake, alert, obeys commands, Oriented to person, place, time, situation, Appropriate for age. Respiratory: Airway is patent Respiratory effort is even, Respiratory pattern is regular, symmetrical. Derm: Skin is intact. 19:22 General: Appears in no apparent distress. Behavior is calm, cooperative, appropriate ea for age. Pain: Complains of pain in right shoulder Pain currently is 3 out of 10 on a pain scale. Neuro: Level of Consciousness is awake, alert, obeys commands, Oriented to person, place, time, situation. Respiratory: Airway is patent Respiratory effort is even, unlabored, Respiratory pattern is regular, symmetrical. Derm: Skin is pink, warm \\T\\ dry. 21:29 Reassessment: Patient and/or family updated on plan of care and expected duration. Pain ea level reassessed. Patient is alert, oriented x 3, equal unlabored respirations, skin warm/dry/pink. Pt admitted to second floor, left ED via wheelchair per tech, pt tolerating well. No s/s of pain or discomfort noted at this time. Vital Signs: 09:08 BP 142 / 96; Pulse 95; Resp 18 S; Temp 98.5(O); Pulse Ox 96% on R/A; Pain 10/10; aa5 11:00 BP 137 / 94; Pulse 85; Resp 18; Pulse Ox 98% on R/A; em 14:06 BP 128 / 79; Pulse 77; Resp 16; Pulse Ox 98% on R/A; em 16:21 BP 127 / 73; Pulse 73; Resp 18; Pulse Ox 98% on R/A; dh4 19:21 BP 135 / 76; Pulse 80; Resp 18; Pulse Ox 97% on R/A; ea 21:19 BP 134 / 70; Pulse 72; Resp 18; Temp 98; Pulse Ox 99% on R/A; ea [place] Coma Score: 09:08 Eye Response: spontaneous(4). Verbal Response: oriented(5). Motor Response: obeys aa5 commands(6). Total: 15. Trauma Score (Adult): 09:08 Eye Response: spontaneous(1); Verbal Response: oriented(1); Motor Response: obeys aa5 commands(2); Systolic BP: > 89 mm Hg(4); Respiratory Rate: 10 to 29 per min(4); [place] Score: 15; Trauma Score: 12 ED Course: 09:08 Patient arrived in ED. aa5 09:08 Arm band placed on. aa5 09:09 De[facility] Merino [facility]NP-C [facility]. snw 09:09 Artem Conrad MD is Attending Physician. snw 09:10 Triage completed. aa5 09:27 Quang Olson, SONI is Primary Nurse. em 09:50 Patient has correct armband on for positive identification. Bed in low position. Call em light in reach. Side rails up X2. Pulse ox on. NIBP on. 10:05 Initial lab(s) drawn, by me, sent to lab. Inserted saline lock: 20 gauge in left em forearm, using aseptic technique. Blood collected. 11:14 XRAY Shoulder RIGHT 2 view In Process Unspecified. EDMS 11:14 Chest Single View XRAY In Process Unspecified. EDMS 17:33 Inserted saline lock: 22 gauge in right forearm, using aseptic technique. dh4 18:09 Shoulder Right (2 View) XRAY In Process Unspecified. EDMS 18:50 Shoulder immobilizer applied on right shoulder. em 19:08 Irene Hastings MD is Hospitalizing Provider. snw 19:12 Shoulder Right (2 View) XRAY In Process Unspecified. EDMS 19:20 No provider procedures requiring assistance completed. Patient admitted, IV remains in ea place. 19:20 Patient maintains SpO2 saturation greater than 95% on room air. Thermoregulation: warm ea blanket given to patient. Administered Medications: 13:58 Drug: TORadol - Ketorolac 15 mg Route: IVP; Site: left forearm; em 14:56 Follow up: Response: No adverse reaction em 14:00 Drug: Valium 5 mg Route: IVP; Site: left forearm; em 14:56 Follow up: Response: No adverse reaction em 14:36 Drug: Valium 5 mg Route: IVP; Site: left forearm; em 14:57 Follow up: Response: No adverse reaction em 18:28 Drug: Propofol 100 mg {Note: administered by Dr. Conrad .} Route: IVP; Site: right em forearm; 18:45 Follow up: Response: No adverse reaction em 19:59 Drug: Tylenol 1000 mg Route: PO; ea 21:00 Follow up: Response: No adverse reaction ea Output: 12:00 Urine: 200ml; Total: 200ml. em Outcome: 19:09 Decision to Hospitalize by Provider. snw 19:21 Instructed on the need for admit, Demonstrated understanding of instructions. ea 21:19 Condition: stable ea 21:28 Admitted to Med/surg accompanied by tech, via wheelchair, room 203, with chart, Report ea called to Receiving nurse on second floor 21:28 Pt admitted to second floorPatient's length of stay extended due to ea 21:31 Patient left the ED. ea Signatures: Dispatcher [employer] Deana Zuñiga, TAWANDA-C POWER GENERATION ENGINEER-Csnw Quang Olson, RN RN Dyan Warner, RN RN aa5 Kavitha Hassan RN RN Vidal Payton [facility]
--- NOTE | 2020-01-13 19:10 | EDPHYS ---
Physician Documentation [facility] Name: Puneet Willis Age: 74 yrs Sex: Male : 1945 Arrival Date: 01/13/2020 Time: 09:08 Bed 15 Private MD: ED Physician Artem Conrad HPI: 01/12 09:42 This 74 yrs old Male presents to ER via EMS with complaints of Fall Injury, snw Shoulder Injury. 09:42 Details of fall: The patient fell from an upright position, while standing. Onset: The snw symptoms/episode began/occurred suddenly. Associated injuries: The patient sustained anterior aspect of right shoulder. Severity of symptoms: At their worst the symptoms were moderate. The patient has experienced similar episodes in the past, 5 dislocations in December [address]. appt with Dr. Jones tomorrow. Historical: - Allergies: 09:08 No Known Allergies; aa5 - PMHx: 09:08 Arthritis; Hypertension; aa5 - Immunization history:: Adult Immunizations unknown. - Social history:: Smoking status: Patient reports the use of cigarette tobacco products, smokes one-half pack cigarettes per day, Patient uses alcohol, occasionally. Pt states "I drank 2 beers yesterday" . - Immunization history: Last tetanus immunization: unknown. ROS: 09:41 Constitutional: Negative for fever, chills, and weight loss, Eyes: Negative for injury, snw pain, redness, and discharge, ENT: Negative for injury, pain, and discharge, Neck: Negative for injury, pain, and swelling, Cardiovascular: Negative for chest pain, palpitations, and edema, Respiratory: Negative for shortness of breath, cough, wheezing, and pleuritic chest pain, Abdomen/GI: Negative for abdominal pain, nausea, vomiting, diarrhea, and constipation, Back: Negative for injury and pain, : Negative for injury, bleeding, discharge, and swelling, Skin: Negative for injury, rash, and discoloration, Neuro: Negative for headache, weakness, numbness, tingling, and seizure. 09:41 Psych: Negative for depression, anxiety, suicide ideation, homicidal ideation, and hallucinations. 09:41 MS/extremity: Positive for injury or acute deformity, abrasion, contusion, deformity, of the abrasions and contusions to bilateral knees, right shoulder dislocation. Exam: 09:40 Constitutional: This is a well developed, well nourished patient who is awake, alert, snw and in no acute distress. Head/Face: Normocephalic, atraumatic. Eyes: Pupils equal round and reactive to light, extra-ocular motions intact. Lids and lashes normal. Conjunctiva and sclera are non-icteric and not injected. Cornea within normal limits. Periorbital areas with no swelling, redness, or edema. ENT: Nares patent. No nasal discharge, no septal abnormalities noted. Tympanic membranes are normal and external auditory canals are clear. Oropharynx with no redness, swelling, or masses, exudates, or evidence of obstruction, uvula midline. Mucous membranes moist. Neck: Trachea midline, no thyromegaly or masses palpated, and no cervical lymphadenopathy. Supple, full range of motion without nuchal rigidity, or vertebral point tenderness. No Meningismus. Chest/axilla: Normal chest wall appearance and motion. Nontender with no deformity. No lesions are appreciated. Cardiovascular: Regular rate and rhythm with a normal S1 and S2. No gallops, murmurs, or rubs. Normal PMI, no JVD. No pulse deficits. 09:40 Abdomen/GI: Soft, non-tender, with normal bowel sounds. No distension or tympany. No guarding or rebound. No evidence of tenderness throughout. Back: No spinal tenderness. No costovertebral tenderness. Full range of motion. Neuro: Awake and alert, GCS 15, oriented to person, place, time, and situation. Cranial nerves II-XII grossly intact. Motor strength 5/5 in all extremities. Sensory grossly intact. Cerebellar exam normal. Normal gait. Psych: Awake, alert, with orientation to person, place and time. Behavior, mood, and affect are within normal limits. 09:40 Respiratory: the patient does not display signs of respiratory distress, Respirations: normal, Breath sounds: wheezing: expiratory that is moderate, is heard diffusely. 09:40 Skin: Appearance: normal except for affected area, injury, abrasion(s), small abrasion noted, of the bilateral knees, anterior dislocation of right shoulder, pulses intact. Vital Signs: 09:08 BP 142 / 96; Pulse 95; Resp 18 S; Temp 98.5(O); Pulse Ox 96% on R/A; Pain 10/10; aa5 11:00 BP 137 / 94; Pulse 85; Resp 18; Pulse Ox 98% on R/A; em 14:06 BP 128 / 79; Pulse 77; Resp 16; Pulse Ox 98% on R/A; em 16:21 BP 127 / 73; Pulse 73; Resp 18; Pulse Ox 98% on R/A; dh4 19:21 BP 135 / 76; Pulse 80; Resp 18; Pulse Ox 97% on R/A; ea 21:19 BP 134 / 70; Pulse 72; Resp 18; Temp 98; Pulse Ox 99% on R/A; ea Flavio Coma Score: 09:08 Eye Response: spontaneous(4). Verbal Response: oriented(5). Motor Response: obeys aa5 commands(6). Total: 15. Trauma Score (Adult): 09:08 Eye Response: spontaneous(1); Verbal Response: oriented(1); Motor Response: obeys aa5 commands(2); Systolic BP: > 89 mm Hg(4); Respiratory Rate: 10 to 29 per min(4); [place] Score: 15; Trauma Score: 12 Procedures: 15:00 Reduction: of the right shoulder, using traction, manipulation, unsuccessful on my snw attempt, Dr. Conrad attempted to reduce with traction/countertraction, manipulation - unsuccessful. MDM: 09:11 Patient medically screened. snw 09:43 Data reviewed: vital signs, nurses notes. Data interpreted: Pulse oximetry: on room air snw is 96 %. Interpretation: normal. 09:45 Physician consultation: Ugo Jones MD was called at 09:45. Physician consultation: sara Daniel MD was called at 13:00, was contacted at 13:00, regarding consult. 14:56 Counseling: I had a detailed discussion with the patient and/or guardian regarding: the snw historical points, exam findings, and any diagnostic results supporting the discharge/admit diagnosis, the need for further work-up and treatment in the hospital. Response to treatment: There is no appreciated change of the patient's symptoms at this time. 15:00 Physician consultation: Irene Hastings MD was called at 15:00, was contacted at 15:00, snw regarding admission, to the telemetry unit. 18:21 ED course: Consent for moderate sedation signed, Dr. Daniel at bedside, Pt on snw monitors, O2 and suction at bedside, crash cart next to door, Dr. Conrad in to give propofol. 01/12 09:45 Order name: CBC with Diff; Complete Time: 10:37 snw 01/12 09:45 Order name: Chem 7; Complete Time: 10:49 snw 01/12 09:45 Order name: PT-INR; Complete Time: 10:49 snw 01/12 09:45 Order name: Ptt, Activated; Complete Time: 10:49 snw 01/12 09:45 Order name: Troponin (emerg Dept Use Only); Complete Time: 10:49 snw 01/12 09:45 Order name: ETOH Level; Complete Time: 10:49 snw 01/12 09:45 Order name: XRAY Shoulder RIGHT 2 view; Complete Time: 11:39 snw 01/12 09:45 Order name: Chest Single View XRAY; Complete Time: 11:39 snw 01/12 15:43 Order name: Troponin (emerg Dept Use Only); Complete Time: 17:35 snw 01/12 17:44 Order name: Shoulder Right (2 View) XRAY; Complete Time: 18:53 em 01/12 18:35 Order name: Shoulder Right (2 View) XRAY; Complete Time: 19:47 em1 01/12 09:45 Order name: EKG; Complete Time: 09:46 snw 01/12 09:45 Order name: EKG - Nurse/Tech; Complete Time: 10:12 snw 01/12 09:45 Order name: SL; Complete Time: 10:12 snw Administered Medications: 13:58 Drug: TORadol - Ketorolac 15 mg Route: IVP; Site: left forearm; em 14:56 Follow up: Response: No adverse reaction em 14:00 Drug: Valium 5 mg Route: IVP; Site: left forearm; em 14:56 Follow up: Response: No adverse reaction em 14:36 Drug: Valium 5 mg Route: IVP; Site: left forearm; em 14:57 Follow up: Response: No adverse reaction em 18:28 Drug: Propofol 100 mg {Note: administered by Dr. Conrad .} Route: IVP; Site: right em forearm; 18:45 Follow up: Response: No adverse reaction em 19:59 Drug: Tylenol 1000 mg Route: PO; ea 21:00 Follow up: Response: No adverse reaction ea Disposition: 01/13 03:32 Co-signature as Attending Physician, Artem Conrad MD I agree with the assessment and kdr plan of care. Disposition: 01/13/20 19:09 Hospitalization ordered by Irene Hastings for Observation. Preliminary diagnosis are Recurrent right shoulder dislocation - reduced, Fall on same level from slipping, tripping and stumbling with subsequent striking against object, Elevated troponin. - Bed requested for Telemetry/MedSurg (observation). - Status is Observation. ea - Condition is Stable. - Problem is an acute exacerbation. - Symptoms have improved. Signatures: Dispatcher [employer] EDMS Stefani Aldana, RN Artem Lopez MD MD [facility] Deana Merino, LIST OF FIRST JOB IDEAS-C LIST OF FIRST JOB IDEAS-Csnw Quang Olson, RN RN Dyan Warner RN RN Kavitha Farris RN SONI [place] Corrections: (The following items were deleted from the chart) 01/12 20:43 19:09 Hospitalization Ordered by Irene Hastings MD for Observation. Preliminary mw diagnosis is Recurrent right shoulder dislocation - reduced; Fall on same level from slipping, tripping and stumbling with subsequent striking against object; Elevated troponin. Bed requested for Telemetry/MedSurg (observation). Status is Observation. Condition is Stable. Problem is an acute exacerbation. Symptoms have improved. snw 21:31 20:43 01/13/2020 19:09 Hospitalization Ordered by Irene Hastings MD for Observation. ea Preliminary diagnosis is Recurrent right shoulder dislocation - reduced; Fall on same level from slipping, tripping and stumbling with subsequent striking against object; Elevated troponin. Bed requested for Telemetry/MedSurg (observation). Status is Observation. Condition is Stable. Problem is an acute exacerbation. Symptoms have improved. mw
--- NOTE | 2020-01-13 19:44 | RAD REPORT ---
EXAM DESCRIPTION: RAD - Shoulder Right 2 View - 01/13/2020 7:12 pm CLINICAL HISTORY: Right shoulder pain FINDINGS: Hill-Sachs deformity. Previously described dislocation appears reduced
[2020-01-13] MEDS ORDERED: ACETAMINOPHEN 500 MG TAB ONE (20:01)
--- NOTE | 2020-01-13 21:29 | P.HP ---
Certification for Inpatient Patient admitted to: Observation With expected LOS: <2 Midnights Practitioner: I am a practitioner with admitting privileges, knowledge of patient current condition, hospital course, and medical plan of care. Services: Services provided to patient in accordance with Admission requirements found in Title 42 Section 412.3 of the Code of Federal Regulations Patient History Date of Service: 01/13/20 Reason for admission: Fall History of Present Illness: 74-year-old Yi-speaking gentleman with a history of hypertension and arthritis presented to the emergency department after a fall at home. Patient reports feeling dizzy after getting up to use his bathroom last night. He fell in the process and sustained injury to the right shoulder. X-ray done in the ED showed right shoulder dislocation. Patient was seen by orthopedic surgeon Dr. Daniel who reduced the dislocation in the ER. Patient troponin noted to be mildly elevated. Given the history of syncope and elevated troponin, patient is placed under observation for further management. Allergies No Known Allergies Allergy (Verified 12/16/14 13:23) Home Medications: Finasteride [Proscar*] 5 mg PO DAILY 12/16/14 Hydrocodone Bit/Acetaminophen [[place] 7.5-325 Tablet] 1 each PO PRN PRN 12/16/14 Losartan Potassium [Cozaar] 25 mg PO DAILY WITH BREAKFAST 12/16/14 Pregabalin [Lyrica] 50 mg PO TID 12/16/14 Tamsulosin [Flomax] 0.4 mg PO BEDTIME 12/16/14 Zolpidem Tartrate [Ambien] 10 mg PO BEDTIME 12/16/14 Doxycycline Hyclate 100 mg PO BID 12/17/14 Smz./Tmp. [Bactrim Ds 800 MG/160 MG*] 1 tab PO BID 12/17/14 - Past Medical/Surgical History -: Hypertension -: Arthritis -: BPH -: Prostate surgery - Family History Family History: Reviewed- Non-Contributory (Patient does not remember any family history) - Social History Smoking Status: Former smoker Alcohol use: Yes CD- Drugs: No Place of Residence: Home Review of Systems Other: Except as documented, all other systems reviewed and negative. Physical Examination - Physical Exam General: Alert, In no apparent distress, Oriented x3 HEENT: Atraumatic, Mucous membr. moist/pink, EOMI, Sclerae nonicteric Neck: Supple, JVD not distended Respiratory: Normal air movement, Expiratory wheezes (Bilateral) Cardiovascular: No edema, Regular rate/rhythm, Normal S1 S2 Capillary refill: <2 Seconds Gastrointestinal: Normal bowel sounds, Soft and benign, Non-distended, No tenderness Musculoskeletal: No clubbing, Tenderness (Right shoulder. Right shoulder in a sling.) Integumentary: No rashes, Other (Abrasions on right knee) Neurological: Normal speech, Normal strength at 5/5 x4 extr - Studies Laboratory Data (last 24 hrs) 01/13/20 10:05: PT 13.9 H, INR 1.18, APTT 29.2 01/13/20 10:05: Sodium 135 L, Potassium 3.4 L, BUN 12, Creatinine 1.06, Glucose 141 H 01/13/20 10:05: WBC 14.3 H, Hgb 15.6, Hct 45.9, Plt Count 251 Assessment and Plan - Problems (Diagnosis) (1) Fall Current Visit: Yes Status: Acute (2) Syncope Current Visit: Yes Status: Acute (3) Elevated troponin Current Visit: Yes Status: Acute (4) Shoulder dislocation Current Visit: Yes Status: Acute (5) Hypertension Current Visit: Yes Status: Acute - Plan Placed under observation. Trend troponin Obtain echocardiogram and carotid Doppler Pain management as needed. Antihypertensives. Start Aspirin Check lipid profile. - Advance Directives Does patient have a Living Will: No Does patient have a Durable POA for Healthcare: No - Code Status/Comfort Care Code Status: Full Code
[2020-01-13] MEDS ORDERED: TRAMADOL HCL 50 MG TAB PO PRN (22:02)
[2020-01-13] MEDS ORDERED: ACETAMINOPHEN 500 MG TAB PO PRN (22:02)
[2020-01-13] MEDS ORDERED: ALBUTEROL 2.5 MG/3 ML NEB SOL NEB PRN (22:02)
[2020-01-13] MEDS ORDERED: ONDANSETRON 4 MG/2 ML VIAL IV PRN (22:02)
[2020-01-13 22:52] VITALS: O2SAT 96
[2020-01-13 23:06] LABS: Urine Appearance CLEAR; Urine Bilirubin NEGATIVE (NEG); Urine Blood 1+ (NEG); Urine Color YELLOW; Urine Glucose NEGATIVE (NEG); Urine Protein TRACE (NEG); Urine Urobilinogen 0.2 mg/dL (0.2-1.0)
[2020-01-13 23:07] LABS: Urine Microscopic Reflex ORDER UMIC
[2020-01-13] MEDS ORDERED: POTASSIUM CL SA 10 MEQ TAB PO ONE (23:26)
[2020-01-14 00:17] LABS: Urine Bacteria <20 /HPF (NONE SEEN); Urine Culture Reflex Order NOT NEEDED; Urine RBC <5 /HPF (NONE SEEN); Urine Urothelial Cells <5 /HPF (NONE SEEN)
[2020-01-14 00:18] VITALS: BMI 29.2
--- NOTE | 2020-01-14 04:22 | CON ---
Date of Consultation: 01/13/2020 History Of Present Illness: This is my first time seeing this patient to my knowledge. 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 I am called because he has an anterior shoulder dislocation. The ER physicians say they c annot get this one back in place. After verbal informed consent was obtained, sedation was accomplished by the ER staff and a reduction maneuver was performed with a clunk. X-rays reviewed after demonstrated a located glenohumeral join t with a fairly large Hill-Sachs lesion. Assessment: A 74-year-old male who apparently has an appointment to see another orthopedist tomorrow , now with a relocated shoulder. He is going to be admitted because of an elevated troponin apparent ly, probably can follow up with his normally scheduled orthopedist perhaps even tomorrow. Otherwise, we will keep him in a shoulder immobilizer. JUD Voice ID: [id number] Report ID: [id number]
[2020-01-14 04:27] LABS: Absolute Lymphocytes (CBC) 2.3 K/uL (0.7-4.9); Basophils % 1.3 % (0-1.3); Hematocrit 42.7 % (39.6-49.0); Lymphocytes % 20.4 % (15.3-44.8); MPV 9.8 fL (7.6-11.3); RBC Red Blood Cell Count 4.43 M/uL (4.33-5.43)
[2020-01-14 05:16] LABS: Magnesium 2.3 mg/dL (1.8-2.4); Phosphorus 3.1 mg/dL (2.5-4.9); Potassium 3.5 mmol/L (3.5-5.1)
--- NOTE | 2020-01-14 07:25 | P.DS ---
Admission Date: 01/13/20 Discharge Date: 01/14/20 Disposition: ROUTINE DISCHARGE Discharge Condition: FAIR Reason for Admission: Fall - Problems (1) Fall Status: Acute (2) Syncope Status: Acute (3) Elevated troponin Status: Acute (4) Shoulder dislocation Status: Acute (5) Hypertension Status: Acute Brief History of Present Illness: 74-year-old Indonesian-speaking gentleman with a history of hypertension and arthr itis presented to the emergency department after a fall at home. Patient reports feeling dizzy after getting up to use his bathroom last night. He fell in the process and sustained injury to the right shoulder. X-ray done in the ED showed right shoulder dislocation. Patient was seen by orthopedic surgeon Dr. Daniel who reduced the dislocation in the ER. Patient troponin noted to be mildly elevated. Given the history of syncope and elevated troponin, patient was placed under observation for further management. Hospital Course: Patient was placed under observation on the medical floor. Troponin trended down to negative. Mildly elevated troponin likely secondary to demand ischemia. Echocardiogram was performed which was unremarkable. Patient had no issues overnight. He is deemed clinically stable for discharge. Vital Signs/Physical Exam: Temp Pulse Resp BP Pulse Ox 97.7 F 77 20 153/75 H 97 01/14/20 04:00 01/14/20 04:00 01/14/20 04:00 01/14/20 04:00 01/14/20 04:00 General: Alert, In no apparent distress Neck: JVD not distended Respiratory: Clear to auscultation bilaterally, Normal air movement Cardiovascular: No edema Gastrointestinal: Normal bowel sounds, Soft and benign, No tenderness Musculoskeletal: No swelling, No erythema Integumentary: No rashes Neurological: Normal speech, Normal strength at 5/5 x4 extr Laboratory Data at Discharge: WBC 11.1 K/uL (4.3-10.9) H D 01/14/20 03:59 Hgb 14.6 g/dL (13.6-17.9) 01/14/20 03:59 Hct 42.7 % (39.6-49.0) 01/14/20 03:59 Plt Count 232 K/uL (152-406) 01/14/20 03:59 PT 13.9 SECONDS (9.5-12.5) H 01/13/20 10:05 INR 1.18 01/13/20 10:05 APTT 29.2 SECONDS (24.3-36.9) 01/13/20 10:05 Sodium 139 mmol/L (136-145) 01/14/20 03:59 Potassium 3.5 mmol/L (3.5-5.1) 01/14/20 03:59 BUN 17 mg/dL (7-18) 01/14/20 03:59 Creatinine 1.00 mg/dL (0.55-1.3) 01/14/20 03:59 Glucose 124 mg/dL (74-106) H 01/14/20 03:59 Phosphorus 3.1 mg/dL (2.5-4.9) 01/14/20 03:59 Magnesium 2.3 mg/dL (1.8-2.4) 01/14/20 03:59 Troponin I 0.03 ng/mL (0.0-0.045) 01/14/20 03:59 Triglycerides 125 mg/dL (<150) 01/14/20 03:59 Cholesterol 133 mg/dL (<200) 01/14/20 03:59 HDL Cholesterol 65 mg/dL (40-60) H 01/14/20 03:59 Cholesterol/HDL Ratio 2.05 01/14/20 03:59 Home Medications: Tamsulosin [Flomax*] 0.4 mg PO BEDTIME 12/16/14 Amlodipine [Norvasc*] 1 tab PO DAILY 01/13/20 Donepezil HCl 1 tab PO BEDTIME 01/13/20 Aspirin [Aspirin EC 81 MG] 81 mg PO DAILY #30 tablet. 01/14/20 traMADol HCL [Ultram*] 50 mg PO Q6H PRN #20 tab 01/14/20 New Medications: Aspirin [Aspirin EC 81 MG] 81 mg PO DAILY #30 tablet. traMADol HCL [Ultram*] 50 mg PO Q6H PRN #20 tab PRN Reason: Pain Scale 5-7 (Moderate) Diet: AHA Activity: Ad chaz Followup: Og Daniel MD [ACTIVE - CAN ADMIT] - 1-2 Weeks
[2020-01-14] MEDS ORDERED: POTASSIUM CL SA 10 MEQ TAB PO ONE (09:00)
[2020-01-14] MEDS ORDERED: ENOXAPARIN 40 MG/0.4 ML SQ SCH (09:00)
--- NOTE | 2020-01-14 11:22 | ECHO ---
HEIGHT: 5 ft 4 in WEIGHT: 170 lb 6.4 oz DATE OF STUDY: 01/14/[address]: oscar marshall 2-DIMENSIONAL: YES M.MODE: YES DOPPLER: YES COLOR FLOW: YES TDS: NO PORTABLE: NO DEFINITY: NO BUBBLE STUDY: NO DIAGNOSIS: SYNCOPE CARDIAC HISTORY: CATHERIZATION: NO SURGERY: NO PROSTHETIC VALVE: NO PACEMAKER: NO MEASUREMENTS (cm) DIASTOLIC (NORMALS) SYSTOLIC (NORMALS) IVSd 1.0 (0.6-1.2) LA Diam 3.9 (1.9-4.0) LVEF 79% LVIDd 3.5 (3.5-5.7) LVIDs 1.9 (2.0-3.5) %FS 47% LVPWd 1.1 (0.6-1.2) Ao Diam 3.2 (2.0-3.7) 2 DIMENSIONAL ASSESSMENT: RIGHT ATRIUM: NORMAL LEFT ATRIUM: NORMAL RIGHT VENTRICLE: NORMAL LEFT VENTRICLE: NORMAL TRICUSPID VALVE: NORMAL MITRAL VALVE: NORMAL PULMONIC VALVE: NORMAL AORTIC VALVE: NORMAL PERICARDIAL EFFUSION: NONE AORTIC ROOT: NORMAL LEFT VENTRICULAR WALL MOTION: NORMAL. DOPPLER/COLOR FLOW: TRACE TRICUSPID REGURGITATION. COMMENTS: NORMAL LEFT VENTRICULAR SIZE AND FUNCTION. NO WALL MOTION ABNORMALITY. NO EFFUSION. TECHNOLOGIST: CHERYL STREETER
[2020-01-14] MEDS ORDERED: ALBUTEROL 2.5 MG/3 ML NEB SOL NEB PRN (15:00)
[2020-01-14 17:02] VITALS: BP 138/74; TEMP 98.6
== END 2020-01-14 20:00 | disposition home or self-care (01) ==
LOC: ER 09:02 → 2ND 21:21
PROVIDERS: ADMIT Internal Medicine; ATTEND Internal Medicine
PROC: 0RSJXZZ Reposition Right Shoulder Joint, External Approach (ICD-10-PCS; principal; 2020-01-13)
PROC: 0RSJXZZ Reposition Right Shoulder Joint, External Approach (ICD-10-PCS; 2020-01-13)
DX: R55 Syncope and collapse (principal); R79.89 Other specified abnormal findings of blood chemistry; S43.084A Other dislocation of right shoulder joint, initial encounter; W01.0XXA Fall on same level from slipping, tripping and stumbling without subsequent striking against object, initial encounter; M24.411 Recurrent dislocation, right shoulder; I10 Essential (primary) hypertension; M19.90 Unspecified osteoarthritis, unspecified site; F17.210 Nicotine dependence, cigarettes, uncomplicated; Z11.59 Encounter for screening for other viral diseases
CPT/HCPCS: 23650; 99156; 93005; 93306; 85025 ×2; 80048 ×2; 36415; 80320; 83735; 84100; 85610; 80061; 85730; 84484 ×4; 71045; 73030 ×3; 93880; 97112; 97116 ×2; 97161; 97530; 96375; 96374; 99285; U0002; J2704; J1650; J3360; G0378 ×3; 81003; 81015

== ENCOUNTER → 2023-08-16 | Emergency (ER) | payer OTHER ==
--- OUTSIDE RECORDS SUMMARY | 2023-08-16 15:42 | XMS REPORT | Continuity of Care Document ---
Author Name Unknown Address [address] [facility] [place] [address] [facility] Address [address] [facility] [place] [address] Care Team Providers Care Survey Worker Name Role Phone Daksha Heredia Attending Clinician Unavailable Joon Lu Attending Clinician Unavailable Ly Moura Attending Clinician Unavailable Problems Condition Name Condition Details Condition Category Status Onset Date Resolution Date Last Treatment Date Treating Clinician Comments Source Osteoarthr itis of knee Primary osteoarthr itis of right knee Problem [facility] Congestive heart failure CHF (congestiv e heart failure) Problem [facility] [id number] BPH loc w urin obs/LUTS Problem [facility] [id number] Peripheral polyneurop athy Problem [facility] [id number] Stage 2 chronic kidney disease Problem [facility] [id number] Pain in joint of right shoulder Problem [facility] Dementia Dementia Problem [facility] [id number] Arthritis of knee, left Problem [facility] [id number] Other chronic pain Problem [facility] [id number] Psychophys iological insomnia Problem [facility] [id number] Heart failure, unspecifie d HF chronicity , unspecifie d heart failure type Problem [facility] [id number] Essential (primary) hypertensi on Problem [facility] Reactive depression Reactive depression Problem [facility] [id number] Arthritis of right knee Problem [facility] Allergies, Adverse Reactions, Alerts Allergy Name Allergy Type Status Severity Reaction(s) Onset Date Inactive Date Treating Clinician Comments Source lisinopr il lisinopr il Active cough [facility] Social History Social Habit Start Date Stop Date Quantity Comments Source History of Tobacco Use [facility] Sex Assigned At [facility] Smoking Status Start Date Stop Date Source Never Smoker [facility] Medications Ordered Medication Name Filled Medication Name Start Date Stop Date Current Medication? Ordering Clinician Indication Dosage Frequency Signature (SIG) Comments Components Source Kenalog (Triamcinol one) Kenalog (Triamcinol one) 03-08 00:00: 00 No 40mg [facility] Kenalog (Triamcinol one) Kenalog (Triamcinol one) 03-08 00:00: 00 No 40mg [facility] Bupivicaine [place] Bupivicaine [place] 03-08 00:00: 00 No 2.5mg [facility] Bupivicaine [place] Bupivicaine [place] 03-08 00:00: 00 No 2.5mg [facility] Kenalog (Triamcinol one) Kenalog (Triamcinol one) - 00:00: 00 No 40mg [facility] Kenalog (Triamcinol one) Kenalog (Triamcinol one) 03-08 00:00: 00 No 40mg [facility] Bupivicaine [place] Bupivicaine [place] 03-08 00:00: 00 No 2.5mg [facility] Bupivicaine [place] Bupivicaine [place] 8- 00:00: 00 No 2.5mg [facility] Kenalog (Triamcinol one) Kenalog (Triamcinol one) 03-08 00:00: 00 No 40mg [facility] Kenalog (Triamcinol one) Kenalog (Triamcinol one) 03-08 00:00: 00 No 40mg [facility] Bupivicaine [place] Bupivicaine [place] 03-08 00:00: 00 No 2.5mg [facility] Bupivicaine [place] Bupivicaine [place] 03-08 00:00: 00 No 2.5mg [facility] Kenalog (Triamcinol one) Kenalog (Triamcinol one) 03-08 00:00: 00 No 40mg [facility] Kenalog (Triamcinol one) Kenalog (Triamcinol one) 03-08 00:00: 00 No 40mg [facility] Bupivicaine [place] Bupivicaine [place] 03-08 00:00: 00 No 2.5mg [facility] Bupivicaine [place] Bupivicaine [place] 03-08 00:00: 00 No 2.5mg [facility] Kenalog (Triamcinol one) Kenalog (Triamcinol one) 03-08 00:00: 00 No 40mg [facility] Kenalog (Triamcinol one) Kenalog (Triamcinol one) 03-08 00:00: 00 No 40mg [facility] Bupivicaine [place] Bupivicaine [place] 0 03-08 00:00: 00 No 2.5mg [facility] Bupivicaine [place] Bupivicaine [place] 0 03-08 00:00: 00 No 2.5mg [facility] Kenalog (Triamcinol one) Kenalog (Triamcinol one) 03-08 00:00: 00 No 40mg [facility] Kenalog (Triamcinol one) Kenalog (Triamcinol one) 03-08 00:00: 00 No 40mg [facility] Bupivicaine [place] Bupivicaine [place] 03-08 00:00: 00 No 2.5mg [facility] Bupivicaine [place] Bupivicaine [place] 03-08 00:00: 00 No 2.5mg [facility] Kenalog (Triamcinol one) Kenalog (Triamcinol one) 03-08 00:00: 00 No 40mg [facility] Kenalog (Triamcinol one) Kenalog (Triamcinol one) 03-08 00:00: 00 No 40mg [facility] Bupivicaine [place] Bupivicaine [place] 03-08 00:00: 00 No 2.5mg [facility] Bupivicaine [place] Bupivicaine [place] 03-08 00:00: 00 No 2.5mg [facility] Kenalog (Triamcinol one) Kenalog (Triamcinol one) 03-08 00:00: 00 No 40mg [facility] Kenalog (Triamcinol one) Kenalog (Triamcinol one) 03-08 00:00: 00 No 40mg [facility] Bupivicaine [place] Bupivicaine [place] 03-08 00:00: 00 No 2.5mg [facility] Bupivicaine [place] Bupivicaine [place] 03-08 00:00: 00 No 2.5mg [facility] Kenalog (Triamcinol one) Kenalog (Triamcinol one) 03-08 00:00: 00 No 40mg [facility] Kenalog (Triamcinol one) Kenalog (Triamcinol one) 03-08 00:00: 00 No 40mg [facility] Bupivicaine [place] Bupivicaine [place] 2021-0 8- 00:00: 00 No 2.5mg [facility] Bupivicaine [place] Bupivicaine [place] 0 8 00:00: 00 No 2.5mg [facility] Kenalog (Triamcinol one) Kenalog (Triamcinol one) 0 8- 00:00: 00 No 40mg [facility] Kenalog (Triamcinol one) Kenalog (Triamcinol one) 0 8- 00:00: 00 No 40mg [facility] Bupivicaine [place] Bupivicaine [place] 0 03-08 00:00: 00 No 2.5mg [facility] Bupivicaine [place] Bupivicaine [place] 0 8 00:00: 00 No 2.5mg [facility] Kenalog (Triamcinol one) Kenalog (Triamcinol one) 0 8 00:00: 00 No 40mg [facility] Kenalog (Triamcinol one) Kenalog (Triamcinol one) 0 03-08 00:00: 00 No 40mg [facility] Bupivicaine [place] Bupivicaine [place] 0 03-08 00:00: 00 No 2.5mg [facility] Bupivicaine [place] Bupivicaine [place] 0 8- 00:00: 00 No 2.5mg [facility] Bupivicaine [place] Bupivicaine [place] 2020-0 7- 00:00: 00 No 2.5mg [facility] Kenalog (Triamcinol one) Kenalog (Triamcinol one) 0 7 00:00: 00 No 40mg [facility] Bupivicaine [place] Bupivicaine [place] 2020-0 7- 00:00: 00 No 2.5mg [facility] Kenalog (Triamcinol one) Kenalog (Triamcinol one) 0 02-16 00:00: 00 No 40mg [facility] Bupivicaine [place] Bupivicaine [place] 0 02-16 00:00: 00 No 2.5mg [facility] Kenalog (Triamcinol one) Kenalog (Triamcinol one) 02-16 00:00: 00 No 40mg [facility] Bupivicaine [place] Bupivicaine [place] 0 02-16 00:00: 00 No 2.5mg [facility] Kenalog (Triamcinol one) Kenalog (Triamcinol one) 02-16 00:00: 00 No 40mg [facility] Bupivicaine [place] Bupivicaine [place] 02-16 00:00: 00 No 2.5mg [facility] Kenalog (Triamcinol one) Kenalog (Triamcinol one) 0 02-16 00:00: 00 No 40mg [facility] Bupivicaine [place] Bupivicaine [place] 02-16 00:00: 00 No 2.5mg [facility] Kenalog (Triamcinol one) Kenalog (Triamcinol one) 02-16 00:00: 00 No 40mg [facility] Bupivicaine [place] Bupivicaine [place] 0 02-16 00:00: 00 No 2.5mg [facility] Kenalog (Triamcinol one) Kenalog (Triamcinol one) 02-16 00:00: 00 No 40mg [facility] Bupivicaine [place] Bupivicaine [place] 0 02-16 00:00: 00 No 2.5mg [facility] Kenalog (Triamcinol one) Kenalog (Triamcinol one) 0 02-16 00:00: 00 No 40mg [facility] Bupivicaine [place] Bupivicaine [place] 0 02-16 00:00: 00 No 2.5mg [facility] Kenalog (Triamcinol one) Kenalog (Triamcinol one) 0 02-16 00:00: 00 No 40mg [facility] Bupivicaine [place] Bupivicaine [place] 0 02-16 00:00: 00 No 2.5mg [facility] Kenalog (Triamcinol one) Kenalog (Triamcinol one) 0 02-16 00:00: 00 No 40mg [facility] Bupivicaine [place] Bupivicaine [place] 0 02-16 00:00: 00 No 2.5mg [facility] Kenalog (Triamcinol one) Kenalog (Triamcinol one) 0 02-16 00:00: 00 No 40mg [facility] Bupivicaine [place] Bupivicaine [place] 0 02-16 00:00: 00 No 2.5mg [facility] Kenalog (Triamcinol one) Kenalog (Triamcinol one) 0 02-16 00:00: 00 No 40mg [facility] Bupivicaine [place] Bupivicaine [place] 0 02-16 00:00: 00 No 2.5mg [facility] Kenalog (Triamcinol one) Kenalog (Triamcinol one) 0 02-16 00:00: 00 No 40mg [facility] Bupivicaine [place] Bupivicaine [place] 0 02-02 00:00: 00 No 2.5mg [facility] Kenalog (Triamcinol one) Kenalog (Triamcinol one) 2020-0 6 00:00: 00 No 40mg [facility] Bupivicaine [place] Bupivicaine [place] 0 02-02 00:00: 00 No 2.5mg [facility] Kenalog (Triamcinol one) Kenalog (Triamcinol one) 0 02-02 00:00: 00 No 40mg [facility] Bupivicaine [place] Bupivicaine [place] 0 02-02 00:00: 00 No 2.5mg [facility] Kenalog (Triamcinol one) Kenalog (Triamcinol one) 02-02 00:00: 00 No 40mg [facility] Bupivicaine [place] Bupivicaine [place] 0 02-02 00:00: 00 No 2.5mg [facility] Kenalog (Triamcinol one) Kenalog (Triamcinol one) 0 02-02 00:00: 00 No 40mg [facility] Bupivicaine [place] Bupivicaine [place] 0 02-02 00:00: 00 No 2.5mg [facility] Kenalog (Triamcinol one) Kenalog (Triamcinol one) 0 02-02 00:00: 00 No 40mg [facility] Bupivicaine [place] Bupivicaine [place] 0 02-02 00:00: 00 No 2.5mg [facility] Kenalog (Triamcinol one) Kenalog (Triamcinol one) 02-02 00:00: 00 No 40mg [facility] Bupivicaine [place] Bupivicaine [place] 0 02-02 00:00: 00 No 2.5mg [facility] Kenalog (Triamcinol one) Kenalog (Triamcinol one) 0 02-02 00:00: 00 No 40mg [facility] Bupivicaine [place] Bupivicaine [place] 2020-0 02-02 00:00: 00 No 2.5mg [facility] Kenalog (Triamcinol one) Kenalog (Triamcinol one) 02-02 00:00: 00 No 40mg [facility] Bupivicaine [place] Bupivicaine [place] 02-02 00:00: 00 No 2.5mg [facility] Kenalog (Triamcinol one) Kenalog (Triamcinol one) 02-02 00:00: 00 No 40mg [facility] Bupivicaine [place] Bupivicaine [place] 02-02 00:00: 00 No 2.5mg [facility] Kenalog (Triamcinol one) Kenalog (Triamcinol one) 02-02 00:00: 00 No 40mg [facility] Bupivicaine [place] Bupivicaine [place] 02-02 00:00: 00 No 2.5mg [facility] Kenalog (Triamcinol one) Kenalog (Triamcinol one) 02-02 00:00: 00 No 40mg [facility] Bupivicaine [place] Bupivicaine [place] 0 02-02 00:00: 00 No 2.5mg [facility] Kenalog (Triamcinol one) Kenalog (Triamcinol one) 02-02 00:00: 00 No 40mg [facility] Bupivicaine [place] Bupivicaine [place] 02-02 00:00: 00 No 2.5mg [facility] Kenalog (Triamcinol one) Kenalog (Triamcinol one) 02-02 00:00: [address] [facility] PARoxetine HCl 10 MG PARoxetine [...] Lu 1 tablet [facility] Lasix 20 MG Lasix 20 [...] height 2022-08-03 14:00:00 64.5 [in_i] Comm on [facility] weight 2022-08-03 14:00:00 181.2 [lb_av] Co [facility] temperature 2022-08-03 14:00:00 97.3 [degF] Com [facility] bmi 2022-08-03 14:00:00 30.62 kg/m2 Comm on [facility] oximetry 2022-08-03 14:00:00 97 % Commo n [facility] respiratory rate 2022-08-03 14:00:00 16 /min [facility] blood pressure systolic 2022-08-03 14:00:00 113 mm[Hg] [facility] blood pressure diastolic 2022-08-03 14:00:00 59 mm[Hg] [facility] height 2022-05-06 15:00:00 64.5 [in_i] Comm on [facility] weight 2022-05-06 15:00:00 175 [lb_av] Comm on [facility] bmi 2022-05-06 15:00:00 29.57 kg/m2 Comm on [facility] height 2022-05-04 14:00:00 64.5 [in_i] Comm on [facility] weight 2022-05-04 14:00:00 176.8 [lb_av] Co [facility] temperature 2022-05-04 14:00:00 98.2 [degF] Com [facility] bmi 2022-05-04 14:00:00 29.88 kg/m2 Comm on [facility] oximetry 2022-05-04 14:00:00 96 % Commo n [facility] respiratory rate 2022-05-04 14:00:00 18 /min Common [facility] blood pressure systolic 2022-05-04 14:00:00 134 mm[Hg] Common [facility] blood pressure diastolic 2022-05-04 14:00:00 67 mm[Hg] Common [facility] height 2022-03-08 14:00:00 64.5 [in_i] Comm on [facility] weight 2022-03-08 14:00:00 182.1 [facility]lb_av] [facility] 2022-[facility]-08 14:00:00 97.2 [degF] Com [facility] bmi 2022-03-08 14:00:00 30.77 kg/m2 Comm on [facility] blood pressure systolic 2022-03-08 14:00:00 118 mm[Hg] [facility] diastolic 2022-03-08 14:00:00 60 mm[Hg] [facility] height 2022-02-01 15:00:00 64.5 [in_i] Comm on [facility] weight 2022-02-01 15:00:00 180 [lb_av] Comm on [facility] temperature 2022-02-01 15:00:00 98.4 [degF] Com [facility] bmi 2022-02-01 15:00:00 30.42 kg/m2 Comm on [facility] oximetry 2022-02-01 15:00:00 97 % Commo n [facility] respiratory rate 2022-02-01 15:00:00 20 /min [facility] blood pressure systolic 2022-02-01 15:00:00 136 mm[Hg] Common [facility] blood pressure diastolic 2022-02-01 15:00:00 71 mm[Hg] [facility] height 2021-09-22 13:20:00 64.5 [in_i] Comm on [facility] weight 2021-09-22 13:20:00 180 [lb_av] Comm on [facility] temperature 2021-09-22 13:20:00 98.1 [degF] Com mon [facility] bmi 2021-09-22 13:20:00 30.42 kg/m2 Comm on [facility] oximetry 2021-09-22 13:20:00 96 % Commo n [facility] respiratory rate 2021-09-22 13:20:00 18 /min [facility] blood pressure systolic 2021-09-22 13:20:00 153 mm[Hg] [facility] blood pressure diastolic 2021-09-22 13:20:00 80 mm[Hg] [facility] Encounters Start Date/Time End Date/Time Encounter Type Admission Type Attending [facility] Care Facility Care Department Encounter ID Source 2023-08-16 11:26:00 Outpatient YanDaksha STLC STLC [id number] [facility] 2022-08-02 09:04:00 Outpatient BroomeDaksha lowe STLC STLC [id number] [facility] 2022-06-23 14:42:00 Outpatient YanDaksha STLC STLMLC [id number] [facility] 2022-03-09 11:29:00 Outpatient YanDaksah STLC STLC [id number] [facility] 2022-03-08 14:41:01 Outpatient Mercedes Herediaa STLC STLMLC [id number] [facility] 2022-03-07 13:14:00 Outpatient Yan Daksha STLC STLC [id number] [facility] 2022-02-04 10:38:00 Outpatient Broome, Daksha STLMLC STLMLC [id number] [facility] 2021-12-29 11:07:00 Outpatient Daksha Heredia STLMLC STLMLC [id number] [facility] 2021-12-17 07:38:00 Outpatient Daksha Heredia STLMLC STLMLC [id number] [facility] 2021-09-21 14:50:00 Outpatient Daksha Heredia STLMLC STLMLC [id number] [facility] 2021-09-20 09:36:01 Outpatient STLMLC STLMLC [id number] [facility] 2021-09-13 12:24:01 Outpatient STLMLC STLMLC [id number] [facility] 2021-09-01 13:25:11 Outpatient STLMLC STLMLC [id number] [facility] 2021-09-01 13:20:34 Outpatient STLMLC STLMLC [id number] [facility] 2021-09-01 13:11:50 Outpatient Daksha Heredia STLMLC STLMLC [id number] [facility] 2021-09-01 13:02:57 Outpatient Daksha Heredia STLMLC STLMLC [id number] [facility] 2021-09-01 12:25:48 Outpatient Daksha Heredia STLMLC STLMLC [id number] [facility] 2021-09-01 12:25:24 Outpatient Daksha Heredia STLMLC STLMLC [id number] [facility] 2021-09-01 12:24:25 Outpatient Joon Lu STLMLC STLMLC [id number] [facility] 2021-09-01 11:59:29 Outpatient Joon Lu STLMLC STLMLC [id number] [facility] 2021-09-01 11:58:31 Outpatient Joon Lu STADALGISA STLMLC [id number] [facility] 2021-09-01 11:41:48 Outpatient Joon Lu STLMLC STLMLC [id number] [facility] 2021-09-01 11:40:55 Outpatient Joon Lu STLMLC STLMLC [id number] [facility] 2021-09-01 11:34:39 Outpatient Joon Lu STLMLC STLMLC [id number] [facility] 2021-09-01 11:34:17 Outpatient Joon Lu STLMLC STLMLC [id number] [facility] 2021-09-01 11:29:51 Outpatient Daksha Heredia STLMLC STLMLC [id number] [facility] 2021-09-01 11:25:31 Outpatient Daksha Heredia STLMLC STLMLC [id number] [facility] 2021-09-01 11:25:23 Outpatient Ly Moura STLMLC STLMLC [id number] [facility] 2021-09-01 11:21:11 Outpatient Ly Moura STLMLC STLMLC [id number] [facility] 2021-09-01 11:19:49 Outpatient Ly Moura STLMLC STLMLC [id number] [facility] 2021-09-01 11:12:18 Outpatient Ly Moura STLMLC STLMLC [id number] [facility] 2022-09-29 00:00:00 2022-09-29 00:00:00 (TEL) STLMLC STLMLC [id number] [facility] 2022-09-16 00:00:00 2022-09-16 00:00:00 (TEL) STLMLC STLMLC [id number] [facility] 2022-08-03 00:00:00 2022-08-03 00:00:00 OFFICE VISIT ESTAB PT LEVEL 4 STLMLC STLMLC [id number] [facility] 2022-05-06 00:00:00 2022-05-06 00:00:00 [facility] STL[facility] STLMLC [id number] [facility] 2022-05-04 00:00:00 2022-05-04 00:00:00 OFFICE VISIT ESTAB PT LEVEL 4 STLMLC STLMLC [id number] [facility] 2022-04-05 00:00:00 2022-04-05 00:00:00 (TEL) STLMLC STLMLC [id number] [facility] 2022-03-08 00:00:00 2022-03-08 00:00:00 OFFICE VISIT ESTAB PT LEVEL 4 STLMLC STLMLC [id number] [facility] 2022-02-04 00:00:00 2022-02-04 00:00:00 (TEL) STLMLC STLMLC [id number] [facility] 2022-02-01 00:00:00 2022-02-01 00:00:00 OFFICE VISIT ESTAB PT LEVEL 4 STLMLC STLMLC [id number] [facility] 2022-01-31 00:00:00 2022-01-31 00:00:00 (TEL) STLMLC STLMLC [id number] [facility] 2021-09-22 00:00:00 2021-09-22 00:00:00 OFFICE VISIT ESTAB PT LEVEL 4 STLMLC STLMLC [id number] [facility] 2021-09-07 00:00:00 2021-09-07 00:00:00 (TEL) STLMLC STLMLC [id number] [facility] 2021-02-16 00:00:00 2021-02-16 00:00:00 Outpatient STLMLC STLMLC [id number] [facility] 2021-02-02 00:00:00 2021-02-02 00:00:00 Outpatient STLMLC STLMLC [id number] [facility] 2020-12-17 00:00:00 2020-12-17 00:00:00 Outpatient STLMLC STLMLC [id number] [facility] 2020-09-03 00:00:00 2020-09-03 00:00:00 Outpatient STLMLC STLMLC [id number] [facility] 2020-06-04 00:00:00 2020-06-04 00:00:00 Outpatient STLMLC STLMLC [id number] [facility] 2020-05-28 00:00:00 2020-05-28 00:00:00 Outpatient STLMLC STLMLC [id number] [facility] 2020-05-27 00:00:00 2020-05-27 00:00:00 Outpatient STLMLC STLMLC [id number] [facility] 2020-05-05 00:00:00 2020-05-05 00:00:00 Outpatient STLMLC STLMLC [id number] [facility] 2020-04-22 10:19:00 2020-04-22 10:19:00 [facility] [id number] [facility] 2020-04-21 09:18:00 2020-04-21 09:18:00 [facility] [id number] [facility] 2020-04-21 08:00:00 2020-04-21 08:00:00 [facility] [id number] [facility] 2020-04-15 14:15:00 2020-04-15 14:15:00 [facility] [id number] [facility] 2020-04-07 10:00:00 2020-04-07 10:00:00 [facility] [id number] [facility] 2020-04-06 08:00:00 2020-04-06 08:00:00 [facility] [id number] [facility] [facility] 2020-03-23 08:00:00 2020-03-23 08:00:00 [facility] [id number] [facility] 2020-03-11 10:00:00 2020-03-11 10:00:00 [facility] [id number] [facility] 2020-03-05 09:30:00 2020-03-05 09:30:00 [facility] [id number] [facility] 2020-02-24 21:35:00 2020-02-24 21:35:00 [facility] [id number] [facility] 2020-02-14 09:03:00 2020-02-14 09:03:00 [facility] [id number] [facility] 2020-02-12 10:32:00 2020-02-12 10:32:00 [facility] [id number] [facility] 2020-02-11 09:30:00 2020-02-11 09:30:00 [facility] [id number] [facility] 2019-11-22 15:20:00 2019-11-22 15:20:00 [facility] [id number] [facility] 2019-11-04 10:00:00 2019-11-04 10:00:[address] [facility] [id number] [facility] 2019-10-21 10:00:00 2019-10-21 10:00:[address] [facility] [id number] [facility] 2019-05-24 16:27:00 2019-05-24 16:27:[address] [facility] [id number] [facility] 2019-02-25 09:47:00 2019-02-25 09:47:[address] [facility] [id number] [facility] 2019-02-22 08:30:00 2019-02-22 08:30:[address] [facility] [id number] [facility] 2019-01-15 16:02:00 2019-01-15 16:02:[address] [facility] [id number] [facility] 2018-11-19 11:15:00 2018-11-19 11:15:[address] [facility] [id number] [facility] 2018-05-15 13:15:00 2018-05-15 13:15:[address] [facility] [id number] [facility] 2018-04-12 13:00:00 2018-04-12 13:00:[address] [facility] [id number] [facility]
--- NOTE | 2023-08-16 17:22 | RAD REPORT ---
EXAM DESCRIPTION: Brett Single View08/16/2023 4:44 pm CLINICAL HISTORY: Cough COMPARISON: August 2022 FINDINGS: The lungs appear clear of acute infiltrate. The heart is normal size. Old rib fractures IMPRESSION: No acute abnormalities displayed
--- NOTE | 2023-08-16 17:49 | RAD REPORT ---
EXAM DESCRIPTION: CT - Head Brain Wo Cont - 08/16/2023 5:24 pm CLINICAL HISTORY: Weakness COMPARISON: 2010 TECHNIQUE: Computed axial tomography of the head was obtained. IV contrast was not requested. All CT scans are performed using dose optimization technique as appropriate and may include automated exposure control or mA/KV adjustment according to patient size. FINDINGS: Right craniotomy Gliosis left temporal lobe unchanged. An intracranial bleed is not seen The ventricles are normal in caliber No extra-axial fluid collection is noted. Mild cerebral atrophy. Empty sella turcica Fluid within the sinuses/ mastoids is not seen. IMPRESSION: No acute intracranial abnormality is seen If patient's symptoms persist MRI of the brain would be recommended
[2023-08-16 17:59] LABS: Absolute Lymphocytes (CBC) 2.7 K/uL (0.7-4.9); Hematocrit 45.3 % (39.6-49.0); Lymphocytes % 24.2 % (15.3-44.8); MCV 98.3 fL (80-100); MPV 8.5 fL (7.6-11.3); Platelets 241 thou/uL (152-406); RBC Red Blood Cell Count 4.61 M/uL (4.33-5.43)
[2023-08-16 18:15] LABS: Albumin 3.8 g/dL (3.4-5.0); Bilirubin Direct 0.1 mg/dL (0-0.2); Bilirubin Indirect, Calculated 0.4 mg/dL (0.2-0.8); Bilirubin Total 0.5 mg/dL (0.2-1.0); Magnesium 2.1 mg/dL (1.6-2.4); Potassium 3.5 mEq/L (3.5-5.1); Protein, Total 8.3 g/dL (6.4-8.2)
[2023-08-16 18:23] LABS: Protime INR 1.33
[2023-08-16 19:21] LABS: Specific Gravity 1.016 (1.005-1.030); Urine Bilirubin NEGATIVE (Negative); Urine Blood Negative (Negative); Urine Clarity Clear (Clear); Urine Color Light-Yellow (Yellow); Urine Glucose NEGATIVE (Negative); Urine Protein NEGATIVE (Negative); Urine Urobilinogen Normal (Normal); Urine pH 6.5 (5.0-7.0)
--- NOTE | 2023-08-16 19:29 | ER ---
Nurse's Notes [facility] Name: Puneet Willis Age: 78 yrs Sex: Male : 1945 Arrival Date: 08/16/2023 Time: 15:38 Bed 17 Private MD: Diagnosis: Other specified arthritis, left knee;Other specified arthritis, right knee Presentation: 08/16 16:04 Chief complaint: Patient states: CAREGIVER STATES PATIENT HAD WEAKNESS AND DROOLING db TODAY. Coronavirus screen: Client denies travel out of the [place] in the last 14 days. At this time, the client does not indicate any symptoms associated with coronavirus-19. Ebola Screen: Patient negative for fever greater than or equal to 101.5 degrees Fahrenheit, and additional compatible Ebola Virus Disease symptoms Patient denies exposure to infectious person. Patient denies travel to an Ebola-affected area in the 21 days before illness onset. No symptoms or risks identified at this time. Initial Sepsis Screen: Does the patient meet any 2 criteria? No. Patient's initial sepsis screen is negative. Does the patient have a suspected source of infection? No. Patient's initial sepsis screen is negative. Risk Assessment: Do you want to hurt yourself or someone else? Patient reports no desire to harm self or others. 16:04 Method Of Arrival: Wheelchair db 16:04 Acuity: MICHAELA 2 db Triage Assessment: 16:07 General: Appears in no apparent distress. comfortable, Behavior is calm, cooperative. db Pain: Complains of pain in BILATERAL KNEES. Neuro: Level of Consciousness is awake, alert, obeys commands, Oriented to person, place, time, situation, Appropriate for age. Cardiovascular: No deficits noted. Respiratory: Airway is patent Respiratory effort is even, unlabored, Respiratory pattern is regular, symmetrical. GI: No deficits noted. No signs and/or symptoms were reported involving the gastrointestinal system. Historical: - Allergies: 17:00 No Known Allergies; nj1 - PMHx: 16:07 Arthritis; Hypertension; db - Immunization history:: Adult Immunizations unknown. - Social history:: Smoking status: Patient denies any tobacco usage or history of. Screenin:00 [facility] ED Fall Risk Assessment (Adult) Score/Fall Risk Level 3 or more points = High nj1 Risk Oriented to surroundings, Maintained a safe environment, Hourly rounding (assess needs \\T\\ fall precautionary measures) done. Abuse screen: Denies threats or abuse. Denies injuries from another. Nutritional screening: No deficits noted. Tuberculosis screening: No symptoms or risk factors identified. Assessment: 17:00 General: Appears in no apparent distress. comfortable, Behavior is calm, cooperative, nj1 appropriate for age. Pain: Complains of pain in right knee and left knee. Neuro: Level of Consciousness is awake, alert, obeys commands. Cardiovascular: Patient's skin is warm and dry. Respiratory: Airway is patent Respiratory effort is even, unlabored. 17:10 Reassessment: Step granddaughter "Sandy" on the phone, states patient is weak and was nj1 drooling earlier. [phone]. 18:04 Reassessment: Patient appears in no apparent distress at this time. No changes from [facility] previously documented assessment. 19:11 Reassessment: Patient appears in no apparent distress at this time. Patient and/or nj1 family updated on plan of care and expected duration. Pain level reassessed. Patient is alert, oriented x 3, equal unlabored respirations, skin warm/dry/pink. 20:24 Reassessment: Patient appears in no apparent distress at this time. Patient and/or nj1 family updated on plan of care and expected duration. Pain level reassessed. Patient is alert, oriented x 3, equal unlabored respirations, skin warm/dry/pink. 20:24 Reassessment: Call placed to Sandy to advise patient being discharge, she will come [facility] get patient. Vital Signs: 16:04 BP 125 / 76; Pulse 72; Resp 18; Temp 97.1; Pulse Ox 97% ; db 18:03 BP 123 / 63; Pulse 73; Resp 22; Pulse Ox 98% on R/A; nj1 19:10 BP 156 / 77; Pulse 74; Resp 21; Pulse Ox 98% on R/A; nj1 20:23 BP 122 / 98; Pulse 66; Resp 20; Pulse Ox 99% on R/A; nj1 ED Course: 15:40 Patient arrived in ED. im 16:05 [facility] Chacon [facility]C [facility] kb 16:05 Imer Root MD is Attending Physician. kb 16:06 Triage completed. db 16:09 Arm band placed on Patient placed in an exam room, on a stretcher. ll1 16:46 Chest Single View XRAY In Process Unspecified. EDMS 17:00 Deana Webb, RN is Primary Nurse. nj1 17:00 Patient has correct armband on for positive identification. Bed in low position. Call nj1 light in reach. Provided Education on: call light, fall precautions. 17:09 EKG done, by ED staff. aw1 17:25 CT Head Brain wo Cont In Process Unspecified. EDMS 20:33 No provider procedures requiring assistance completed. IV discontinued, intact, nj1 bleeding controlled. Administered Medications: No medications were administered Medication: 20:34 VIS not applicable for this client. nj1 Outcome: 19:29 Discharge ordered by MD. kb 20:34 Discharged to home via wheelchair, nj1 20:34 Condition: stable 20:34 Discharge instructions given to patient, Instructed on discharge instructions, follow up and referral plans. Demonstrated understanding of instructions, follow-up care, 20:36 Patient left the ED. nj1 Signatures: Dispatcher [employer] EDSD Torie Chacon, TAWANDA-Vance NEFF-Dawood Brambila, RN RN ll1 Andria High, RN RN Deana Webb, RN RN nj1 Glo Renee Alyssa aw1 Corrections: (The following items were deleted from the chart) 20:35 20:24 Reassessment: Call placed to Sandy to advised patient being discharge, she will nj1 come get patient. nj1
--- NOTE | 2023-08-16 19:29 | EDPHYS ---
Physician Documentation [facility] Name: Puneet Willis Age: 78 yrs Sex: Male : 1945 Arrival Date: 08/16/2023 Time: 15:38 Bed 17 Private MD: ED Physician Imer Root HPI: 08/16 16:56 This 78 yrs old Male presents to ER via Wheelchair with complaints of General kb Weakness, Drooling. 16:56 Pt was discharged from ED after being brought in by [facility] for bilateral knee kb pain r/t arthritis. Caregiver called and wanted pt to sign back in and be evaluated for weakness and drooling that has been intermittent for a week. States pt has been evaluated by PCP and utilities estimator and drafter this week for similar symptoms. Pt denies chest pain, weakness, shortness of breath. States he sometimes gets dizzy when he has a coughing fit, but denies dizziness at this time. Pt transferred from wheelchair to bed and states he hasn't been able to walk well because of his arthritis so he has a wheelchair at home. . Historical: - Allergies: 17:00 No Known Allergies; nj1 - PMHx: 16:07 Arthritis; Hypertension; db - Immunization history:: Adult Immunizations unknown. - Social history:: Smoking status: Patient denies any tobacco usage or history of. ROS: 16:56 Constitutional: Negative for fever, chills, and weight loss, kb 16:56 MS/extremity: Positive for pain, of the right knee and left knee, 16:56 All other systems are negative, Exam: 16:56 Constitutional: This is a well developed, well nourished patient who is awake, alert, kb and in no acute distress. Head/Face: Normocephalic, atraumatic. ENT: Moist Mucous membranes Cardiovascular: Regular rate Respiratory: Respirations even and unlabored. No increased work of breathing. Talking in full sentences Abdomen/GI: Soft, non-tender. No distention Skin: Warm, dry with normal turgor. Normal color. MS/ Extremity: Pulses equal, no cyanosis. Neurovascular intact. Full, normal range of motion. Neuro: Awake and alert, GCS 15, oriented to person, place, time, and situation. Moves all extremities. Vital Signs: 16:04 BP 125 / 76; Pulse 72; Resp 18; Temp 97.1; Pulse Ox 97% ; db 18:03 BP 123 / 63; Pulse 73; Resp 22; Pulse Ox 98% on R/A; nj1 19:10 BP 156 / 77; Pulse 74; Resp 21; Pulse Ox 98% on R/A; nj1 20:23 BP 122 / 98; Pulse 66; Resp 20; Pulse Ox 99% on R/A; nj1 MDM: 16:05 Patient medically screened. kb 17:01 Data reviewed: vital signs, nurses notes. kb 17:01 Differential Diagnosis weakness, CVA, abnormal electrolytes, arrhythmia. kb 19:28 Counseling: I had a detailed discussion with the patient and/or guardian regarding the kb historical points, exam findings, and any diagnostic results supporting the discharge/admit diagnosis, lab results, radiology results, the need for outpatient follow up, a family practitioner, to return to the emergency department if symptoms worsen or persist or if there are any questions or concerns that arise at home. 08/16 16:15 Order name: Basic Metabolic Panel; Complete Time: 18:16 kb 08/16 16:15 Order name: CBC with Diff; Complete Time: 19:49 kb 08/16 16:15 Order name: Hepatic Function; Complete Time: 18:16 kb 08/16 16:15 Order name: Magnesium; Complete Time: 18:16 kb 08/16 16:15 Order name: Protime (+inr); Complete Time: 18:23 kb 08/16 16:15 Order name: Ptt, Activated; Complete Time: 18:23 kb 08/16 16:15 Order name: Troponin High Sensitivity; Complete Time: 18:16 kb 08/16 16:15 Order name: Urinalysis w/ reflexes; Complete Time: 19:23 kb 08/16 18:32 Order name: Flu; Complete Time: 19:23 kb 08/16 18:32 Order name: COVID-19 SARS RT PCR; Complete Time: 19:28 kb 08/16 19:46 Order name: Manual Differential; Complete Time: 19:49 EDMS 08/16 16:15 Order name: CT Head Brain wo Cont; Complete Time: 17:54 kb 08/16 16:15 Order name: Chest Single View XRAY; Complete Time: 17:23 kb 08/16 16:15 Order name: EKG; Complete Time: 16:15 kb 08/16 16:15 Order name: Cardiac monitoring; Complete Time: 17:52 kb 08/16 16:15 Order name: EKG - Nurse/Tech; Complete Time: 17:06 kb 08/16 16:15 Order name: IV Saline Lock; Complete Time: 17:52 kb 08/16 16:15 Order name: Labs collected and sent; Complete Time: 17:52 kb 08/16 16:15 Order name: NPO; Complete Time: 17:26 kb 08/16 16:15 Order name: O2 Per Protocol; Complete Time: 17:55 kb 08/16 16:15 Order name: O2 Sat Monitoring; Complete Time: 17:55 kb Administered Medications: No medications were administered Disposition: 08/17 06:59 Co-signature as Attending Physician, Imer Root MD I reviewed the patient's care rn provided by the Advanced Practice Provider and agree with the diagnosis and treatment plan. Disposition Summary: 08/16/23 19:29 Discharge Ordered Notes: Location: Home kb Condition: Stable kb Diagnosis - Other specified arthritis, left knee kb - Other specified arthritis, right knee kb Followup: kb - With: Emergency Department - When: As needed - Reason: Worsening of condition Followup: kb - With: Private Physician - When: 2 - 3 days - Reason: Recheck today's complaints, Continuance of care, Re-evaluation by your physician Discharge Instructions: - Discharge Summary Sheet kb - Arthritis, [id number] kb Forms: - Medication Reconciliation Form kb - Thank You Letter kb - Antibiotic Education kb - Prescription Opioid Use kb - Patient Portal Instructions kb - Leadership Thank You Letter kb Signatures: Dispatcher [employer] EDPA Torie Chacon, CRIMINAL COURT JUDGE-C CRIMINAL COURT JUDGE-Ckb Imer Root MD MD rn Benton, Danielle, RN RN Deana Bianchi, RN RN nj1 Corrections: (The following items were deleted from the chart) 08/16 17:01 16:56 Pt was discharged from ED after being brought in by [facility] for bilateral kb knee pain r/t arthritis. Caregiver called and wanted pt to sign back in and be evaluated for weakness and drooling that has been intermittent for a week. States pt has been evaluated by PCP and utilities estimator and drafter this week for similar symptoms. Pt denies chest pain, weakness, shortness of breath. States he sometimes gets dizzy when he has a coughing fit, but denies dizziness at this time. Pt transferred from wheelchair to bed and states he hasn't been able to walk well because of his arthritis so he has a wheelchair at home. . kb
[2023-08-16 19:46] LABS: Blood Morphology Comment NOT SEEN (NOT SEEN); Platelet Estimate ADEQ
[2023-08-17 00:22] VITALS: BP 122/98; TEMP 97.1; O2SAT 99
--- NOTE | 2023-08-18 13:28 | EKG ---
Test Date: 2023-08-16 Test Time: 17:03:03 Portrait Photographer: HARI MEASUREMENT RESULTS: Intervals: Rate: 76 VT: 170 QRSD: 78 QT: 364 QTc: 409 Thompson: P: 33 VT: 170 QRS: -34 T: 15 INTERPRETIVE STATEMENTS: Normal sinus rhythm Left axis deviation Minimal voltage criteria for LVH, may be normal variant Cannot rule out Anterior infarct, age undetermined Abnormal ECG Compared to ECG 01/13/2020 10:06:16 Left-axis deviation now present Left ventricular hypertrophy now present Myocardial infarct finding now present Electronically Signed On 08-18-23 13:24:12 ENGRAVER LETTERING by Jeffrey Hermosillo
== END ==
LOC: ER 15:38
DX: M13.862 Other specified arthritis, left knee (principal); M13.861 Other specified arthritis, right knee; R53.1 Weakness; R05.9 Cough, unspecified; I10 Essential (primary) hypertension; Z11.52 Encounter for screening for COVID-19
CPT/HCPCS: 36415; 70450; 71045; 80048; 80076; 81003; 83735; 84484; 85025; 85610; 85730; 87635; 87804; 93005; 99283

== ENCOUNTER → 2023-08-16 | Emergency (ER) | payer OTHER ==
--- OUTSIDE RECORDS SUMMARY | 2023-08-16 13:33 | XMS REPORT | Continuity of Care Document ---
Author Name Unknown Address [address] [facility]. [phone] [facility] Address [address] [facility]. [phone] Care Team Providers Care Special Events Coordinator Name Role Phone Daksha Heredia Attending Clinician Unavailable Joon Lu Attending Clinician Unavailable Ly Moura Attending Clinician Unavailable Problems Condition Name Condition Details Condition Category Status Onset Date Resolution Date Last Treatment Date Treating Clinician Comments Source Osteoarthr itis of knee Primary osteoarthr itis of right knee Problem [facility] Congestive heart failure CHF (congestiv e heart failure) Problem [facility] [id number] BPH loc w urin obs/LUTS Problem [facility] [id number] Peripheral polyneurop athy Problem [facility] [id number] Stage 2 chronic kidney disease Problem [facility] [id number] Pain in joint of right shoulder Problem [facility] Dementia Dementia Problem [facility] [id number] Arthritis of knee, left Problem [facility] [id number] Other chronic pain Problem [facility] [id number] Psychophys iological insomnia Problem [facility] [id number] Heart failure, unspecifie d HF chronicity , unspecifie d heart failure type Problem [facility] [id number] Essential (primary) hypertensi on Problem [facility] Reactive depression Reactive depression Problem [facility] [id number] Arthritis of right knee Problem [facility] Allergies, Adverse Reactions, Alerts Allergy Name Allergy Type Status Severity Reaction(s) Onset Date Inactive Date Treating Clinician Comments Source lisinopr il lisinopr il Active cough [facility] Social History Social Habit Start Date Stop Date Quantity Comments Source History of Tobacco Use [facility] Sex Assigned At [facility] Smoking Status Start Date Stop Date Source Never Smoker [facility] Medications Ordered Medication Name Filled Medication Name Start Date Stop Date Current Medication? Ordering Clinician Indication Dosage Frequency Signature (SIG) Comments Components Source Kenalog (Triamcinol one) Kenalog (Triamcinol one) 03-08 00:00: 00 No 40mg [facility] Kenalog (Triamcinol one) Kenalog (Triamcinol one) 03-08 00:00: 00 No 40mg [facility] Bupivicaine Burgess Bupivicaine Burgess 03-08 00:00: 00 No 2.5mg [facility] Bupivicaine Burgess Bupivicaine Burgess 03-08 00:00: 00 No 2.5mg [facility] Kenalog (Triamcinol one) Kenalog (Triamcinol one) - 00:00: 00 No 40mg [facility] Kenalog (Triamcinol one) Kenalog (Triamcinol one) 03-08 00:00: 00 No 40mg [facility] Bupivicaine Burgess Bupivicaine Burgess 03-08 00:00: 00 No 2.5mg [facility] Bupivicaine Burgess Bupivicaine Burgess 8- 00:00: 00 No 2.5mg [facility] Kenalog (Triamcinol one) Kenalog (Triamcinol one) 03-08 00:00: 00 No 40mg [facility] Kenalog (Triamcinol one) Kenalog (Triamcinol one) 03-08 00:00: 00 No 40mg [facility] Bupivicaine Burgess Bupivicaine Burgess 03-08 00:00: 00 No 2.5mg [facility] Bupivicaine Burgess Bupivicaine Burgess 03-08 00:00: 00 No 2.5mg [facility] Kenalog (Triamcinol one) Kenalog (Triamcinol one) 03-08 00:00: 00 No 40mg [facility] Kenalog (Triamcinol one) Kenalog (Triamcinol one) 03-08 00:00: 00 No 40mg [facility] Bupivicaine Burgess Bupivicaine Burgess 03-08 00:00: 00 No 2.5mg [facility] Bupivicaine Burgess Bupivicaine Burgess 03-08 00:00: 00 No 2.5mg [facility] Kenalog (Triamcinol one) Kenalog (Triamcinol one) 03-08 00:00: 00 No 40mg [facility] Kenalog (Triamcinol one) Kenalog (Triamcinol one) 03-08 00:00: 00 No 40mg [facility] Bupivicaine Burgess Bupivicaine Burgess 0 03-08 00:00: 00 No 2.5mg [facility] Bupivicaine Burgess Bupivicaine Burgess 0 03-08 00:00: 00 No 2.5mg [facility] Kenalog (Triamcinol one) Kenalog (Triamcinol one) 03-08 00:00: 00 No 40mg [facility] Kenalog (Triamcinol one) Kenalog (Triamcinol one) 03-08 00:00: 00 No 40mg [facility] Bupivicaine Burgess Bupivicaine Burgess 03-08 00:00: 00 No 2.5mg [facility] Bupivicaine Burgess Bupivicaine Burgess 03-08 00:00: 00 No 2.5mg [facility] Kenalog (Triamcinol one) Kenalog (Triamcinol one) 03-08 00:00: 00 No 40mg [facility] Kenalog (Triamcinol one) Kenalog (Triamcinol one) 03-08 00:00: 00 No 40mg [facility] Bupivicaine Burgess Bupivicaine Burgess 03-08 00:00: 00 No 2.5mg [facility] Bupivicaine Burgess Bupivicaine Burgess 03-08 00:00: 00 No 2.5mg [facility] Kenalog (Triamcinol one) Kenalog (Triamcinol one) 03-08 00:00: 00 No 40mg [facility] Kenalog (Triamcinol one) Kenalog (Triamcinol one) 03-08 00:00: 00 No 40mg [facility] Bupivicaine Burgess Bupivicaine Burgess 03-08 00:00: 00 No 2.5mg [facility] Bupivicaine Burgess Bupivicaine Burgess 03-08 00:00: 00 No 2.5mg [facility] Kenalog (Triamcinol one) Kenalog (Triamcinol one) 03-08 00:00: 00 No 40mg [facility] Kenalog (Triamcinol one) Kenalog (Triamcinol one) 03-08 00:00: 00 No 40mg [facility] Bupivicaine Burgess Bupivicaine Burgess 2021-0 8- 00:00: 00 No 2.5mg [facility] Bupivicaine Burgess Bupivicaine Burgess 0 8 00:00: 00 No 2.5mg [facility] Kenalog (Triamcinol one) Kenalog (Triamcinol one) 0 8- 00:00: 00 No 40mg [facility] Kenalog (Triamcinol one) Kenalog (Triamcinol one) 0 8- 00:00: 00 No 40mg [facility] Bupivicaine Burgess Bupivicaine Burgess 0 03-08 00:00: 00 No 2.5mg [facility] Bupivicaine Burgess Bupivicaine Burgess 0 8 00:00: 00 No 2.5mg [facility] Kenalog (Triamcinol one) Kenalog (Triamcinol one) 0 8 00:00: 00 No 40mg [facility] Kenalog (Triamcinol one) Kenalog (Triamcinol one) 0 03-08 00:00: 00 No 40mg [facility] Bupivicaine Burgess Bupivicaine Burgess 0 03-08 00:00: 00 No 2.5mg [facility] Bupivicaine Burgess Bupivicaine Burgess 0 8- 00:00: 00 No 2.5mg [facility] Bupivicaine Burgess Bupivicaine Burgess 2020-0 7- 00:00: 00 No 2.5mg [facility] Kenalog (Triamcinol one) Kenalog (Triamcinol one) 0 7 00:00: 00 No 40mg [facility] Bupivicaine Burgess Bupivicaine Burgess 2020-0 7- 00:00: 00 No 2.5mg [facility] Kenalog (Triamcinol one) Kenalog (Triamcinol one) 0 02-16 00:00: 00 No 40mg [facility] Bupivicaine Burgess Bupivicaine Burgess 0 02-16 00:00: 00 No 2.5mg [facility] Kenalog (Triamcinol one) Kenalog (Triamcinol one) 02-16 00:00: 00 No 40mg [facility] Bupivicaine Burgess Bupivicaine Burgess 0 02-16 00:00: 00 No 2.5mg [facility] Kenalog (Triamcinol one) Kenalog (Triamcinol one) 02-16 00:00: 00 No 40mg [facility] Bupivicaine Burgess Bupivicaine Burgess 02-16 00:00: 00 No 2.5mg [facility] Kenalog (Triamcinol one) Kenalog (Triamcinol one) 0 02-16 00:00: 00 No 40mg [facility] Bupivicaine Burgess Bupivicaine Burgess 02-16 00:00: 00 No 2.5mg [facility] Kenalog (Triamcinol one) Kenalog (Triamcinol one) 02-16 00:00: 00 No 40mg [facility] Bupivicaine Burgess Bupivicaine Burgess 0 02-16 00:00: 00 No 2.5mg [facility] Kenalog (Triamcinol one) Kenalog (Triamcinol one) 02-16 00:00: 00 No 40mg [facility] Bupivicaine Burgess Bupivicaine Burgess 0 02-16 00:00: 00 No 2.5mg [facility] Kenalog (Triamcinol one) Kenalog (Triamcinol one) 0 02-16 00:00: 00 No 40mg [facility] Bupivicaine Burgess Bupivicaine Burgess 0 02-16 00:00: 00 No 2.5mg [facility] Kenalog (Triamcinol one) Kenalog (Triamcinol one) 0 02-16 00:00: 00 No 40mg [facility] Bupivicaine Burgess Bupivicaine Burgess 0 02-16 00:00: 00 No 2.5mg [facility] Kenalog (Triamcinol one) Kenalog (Triamcinol one) 0 02-16 00:00: 00 No 40mg [facility] Bupivicaine Burgess Bupivicaine Burgess 0 02-16 00:00: 00 No 2.5mg [facility] Kenalog (Triamcinol one) Kenalog (Triamcinol one) 0 02-16 00:00: 00 No 40mg [facility] Bupivicaine Burgess Bupivicaine Burgess 0 02-16 00:00: 00 No 2.5mg [facility] Kenalog (Triamcinol one) Kenalog (Triamcinol one) 0 02-16 00:00: 00 No 40mg [facility] Bupivicaine Burgess Bupivicaine Burgess 0 02-16 00:00: 00 No 2.5mg [facility] Kenalog (Triamcinol one) Kenalog (Triamcinol one) 0 02-16 00:00: 00 No 40mg [facility] Bupivicaine Burgess Bupivicaine Burgess 0 02-02 00:00: 00 No 2.5mg [facility] Kenalog (Triamcinol one) Kenalog (Triamcinol one) 2020-0 6 00:00: 00 No 40mg [facility] Bupivicaine Burgess Bupivicaine Burgess 0 02-02 00:00: 00 No 2.5mg [facility] Kenalog (Triamcinol one) Kenalog (Triamcinol one) 0 02-02 00:00: 00 No 40mg [facility] Bupivicaine Burgess Bupivicaine Burgess 0 02-02 00:00: 00 No 2.5mg [facility] Kenalog (Triamcinol one) Kenalog (Triamcinol one) 02-02 00:00: 00 No 40mg [facility] Bupivicaine Burgess Bupivicaine Burgess 0 02-02 00:00: 00 No 2.5mg [facility] Kenalog (Triamcinol one) Kenalog (Triamcinol one) 0 02-02 00:00: 00 No 40mg [facility] Bupivicaine Burgess Bupivicaine Burgess 0 02-02 00:00: 00 No 2.5mg [facility] Kenalog (Triamcinol one) Kenalog (Triamcinol one) 0 02-02 00:00: 00 No 40mg [facility] Bupivicaine Burgess Bupivicaine Burgess 0 02-02 00:00: 00 No 2.5mg [facility] Kenalog (Triamcinol one) Kenalog (Triamcinol one) 02-02 00:00: 00 No 40mg [facility] Bupivicaine Burgess Bupivicaine Burgess 0 02-02 00:00: 00 No 2.5mg [facility] Kenalog (Triamcinol one) Kenalog (Triamcinol one) 0 02-02 00:00: 00 No 40mg [facility] Bupivicaine Burgess Bupivicaine Burgess 2020-0 02-02 00:00: 00 No 2.5mg [facility] Kenalog (Triamcinol one) Kenalog (Triamcinol one) 02-02 00:00: 00 No 40mg [facility] Bupivicaine Burgess Bupivicaine Burgess 02-02 00:00: 00 No 2.5mg [facility] Kenalog (Triamcinol one) Kenalog (Triamcinol one) 02-02 00:00: 00 No 40mg [facility] Bupivicaine Burgess Bupivicaine Burgess 02-02 00:00: 00 No 2.5mg [facility] Kenalog (Triamcinol one) Kenalog (Triamcinol one) 02-02 00:00: 00 No 40mg [facility] Bupivicaine Burgess Bupivicaine Burgess 02-02 00:00: 00 No 2.5mg [facility] Kenalog (Triamcinol one) Kenalog (Triamcinol one) 02-02 00:00: 00 No 40mg [facility] Bupivicaine Burgess Bupivicaine Burgess 0 02-02 00:00: 00 No 2.5mg [facility] Kenalog (Triamcinol one) Kenalog (Triamcinol one) 02-02 00:00: 00 No 40mg [facility] Bupivicaine Burgess Bupivicaine Burgess 02-02 00:00: 00 No 2.5mg [facility] Kenalog (Triamcinol one) Kenalog (Triamcinol one) 02-02 00:00: 00 No 40mg [facility] PARoxetine HCl 10 MG PARoxetine HCl 10 MG 12-17 00:00: 00 No 1{table t_in_th e_morni ng} QD PARoxetine HCl 10 MG PARoxetine HCl 10 MG PARoxetine HCl 10 MG 12-17 00:00: 00 No 1{table t_in_th e_morni ng} QD PARoxetine HCl 10 MG PARoxetine HCl 10 MG PARoxetine HCl 10 MG 2021-0 5-13 00:00: 00 No 1{table t_in_th e_morni ng} QD PARoxetine HCl 10 MG PARoxetine HCl 10 MG PARoxetine HCl 10 MG 2021-0 5-13 00:00: 00 No 1{table t_in_th e_morni ng} QD PARoxetine HCl 10 MG PARoxetine HCl 10 MG PARoxetine HCl 10 MG 2021-0 5-13 00:00: 00 No 1{table t_in_th e_morni ng} QD PARoxetine HCl 10 MG PARoxetine HCl 10 MG PARoxetine HCl 10 MG 2021-0 5-13 00:00: 00 No 1{table t_in_th e_morni ng} QD PARoxetine HCl 10 MG PARoxetine HCl 10 MG PARoxetine HCl 10 MG 2021-0 5-13 00:00: 00 No 1{table t_in_th e_morni ng} QD PARoxetine HCl 10 MG PARoxetine HCl 10 MG PARoxetine HCl 10 MG 2021-0 5-13 00:00: 00 No 1{table t_in_th e_morni ng} QD PARoxetine HCl 10 MG PARoxetine HCl 10 MG PARoxetine HCl 10 MG 2021-0 -13 00:00: 00 No 1{table t_in_th e_morni ng} QD PARoxetine HCl 10 MG PARoxetine HCl 10 MG PARoxetine HCl 10 MG 2021-0 -13 00:00: 00 No 1{table t_in_th e_morni ng} QD PARoxetine HCl 10 MG PARoxetine HCl 10 MG PARoxetine HCl 10 MG 2021-0 5-13 00:00: 00 No 1{table t_in_th e_morni ng} QD PARoxetine HCl 10 MG PARoxetine HCl 10 MG PARoxetine HCl 10 MG 2021-0 -13 00:00: 00 No 1{table t_in_th e_morni ng} QD PARoxetine HCl 10 MG PARoxetine HCl 10 MG PARoxetine HCl 10 MG 2021-0 5-13 00:00: 00 No 1{table t_in_th e_morni ng} QD PARoxetine HCl 10 MG PARoxetine HCl 10 MG PARoxetine HCl 10 MG 2021-0 5-13 00:00: 00 No 1{table t_in_th e_morni ng} QD PARoxetine HCl 10 MG Losartan Potassium-H CTZ 100-25 MG Losartan Potassium-H CTZ 100-25 MG 2019-0 9-15 00:00: 00 No 1{table t} QD Losartan Potassium- HCTZ 100-25 MG Furosemide Furosemide 2019-0 8-31 00:00: 00 04-21 00:00 :00 No Kin Abbey Lu 1 tablet [facility] Lasix 20 MG Lasix 20 MG 2020-0 8-05 00:00: 00 No 1{table t} QD Lasix 20 MG Lasix 20 MG Lasix 20 MG 2020-0 8-05 00:00: 00 No 1{table t} QD Lasix 20 MG Lasix 20 MG Lasix 20 MG 2020-0 8-05 00:00: 00 No 1{table t} QD Lasix 20 MG Lasix 20 MG Lasix 20 MG 2020-0 8-05 00:00: 00 No 1{table t} QD Lasix 20 MG Lasix 20 MG Lasix 20 MG 2020-0 8-05 00:00: 00 No 1{table t} QD Lasix 20 MG Lasix 20 MG Lasix 20 MG 2020-0 8-05 00:00: 00 No 1{table t} QD Lasix 20 MG Lasix 20 MG Lasix 20 MG 2020-0 8-05 00:00: 00 No 1{table t} QD Lasix 20 MG Lasix 20 MG Lasix 20 MG 2020-0 8-05 00:00: 00 No 1{table t} QD Lasix 20 MG Lasix 20 MG Lasix 20 MG 2019-0 8-05 00:00: 00 No 1{table t} QD Lasix 20 MG Lasix 20 MG Lasix 20 MG 2020-0 8-05 00:00: 00 No 1{table t} QD Lasix 20 MG Lasix 20 MG Lasix 20 MG 2020-0 8-05 00:00: 00 No 1{table t} QD Lasix 20 MG Lasix 20 MG Lasix 20 MG 2020-0 8-05 00:00: 00 No 1{table t} QD Lasix 20 MG Lasix 20 MG Lasix 20 MG 2020-0 8-05 00:00: 00 No 1{table t} QD Lasix 20 MG Lasix 20 MG Lasix 20 MG 2020-0 8-05 00:00: 00 No 1{table t} QD Lasix 20 MG Meloxicam 7.5 MG Meloxicam 7.5 MG No 1{table t} QD Meloxicam 7.5 MG Losartan Potassium-H CTZ 100-25 MG Losartan Potassium-H CTZ 100-25 MG No 1{table t} QD Losartan Potassium- HCTZ 100-25 MG Melatonin 5 MG Melatonin 5 MG No 1{capsu le_at_b edtime_ as_need ed} QD Melatonin 5 MG Tamsulosin HCl 0.4 MG Tamsulosin HCl 0.4 MG No Tamsulosin HCl 0.4 MG Losartan Potassium-H CTZ 100-25 MG Losartan Potassium-H CTZ 100-25 MG No 1{table t} QD Losartan Potassium- HCTZ 100-25 MG Tamsulosin HCl 0.4 MG Tamsulosin HCl 0.4 MG No Tamsulosin HCl 0.4 MG Melatonin 5 MG Melatonin 5 MG No 1{capsu le_at_b edtime_ as_need ed} QD Melatonin 5 MG Meloxicam 15 MG Meloxicam 15 MG No 1{table t} QD Meloxicam 15 MG Losartan Potassium-H CTZ 100-25 MG Losartan Potassium-H CTZ 100-25 MG No 1{table t} QD Losartan Potassium- HCTZ 100-25 MG Tamsulosin HCl 0.4 MG Tamsulosin HCl 0.4 MG No Tamsulosin HCl 0.4 MG Melatonin 5 MG Melatonin 5 MG No 1{capsu le_at_b edtime_ as_need ed} QD Melatonin 5 MG Meloxicam 15 MG Meloxicam 15 MG No 1{table t} QD Meloxicam 15 MG Losartan Potassium-H CTZ 100-25 MG Losartan Potassium-H CTZ 100-25 MG No 1{table t} QD Losartan Potassium- HCTZ 100-25 MG Tamsulosin HCl 0.4 MG Tamsulosin HCl 0.4 MG No Tamsulosin HCl 0.4 MG Melatonin 5 MG Melatonin 5 MG No 1{capsu le_at_b edtime_ as_need ed} QD Melatonin 5 MG Meloxicam 15 MG Meloxicam 15 MG No 1{table t} QD Meloxicam 15 MG Losartan Potassium-H CTZ 100-25 MG Losartan Potassium-H CTZ 100-25 MG No 1{table t} QD Losartan Potassium- HCTZ 100-25 MG Tamsulosin HCl 0.4 MG Tamsulosin HCl 0.4 MG No Tamsulosin HCl 0.4 MG Melatonin 5 MG Melatonin 5 MG No 1{capsu le_at_b edtime_ as_need ed} QD Melatonin 5 MG Meloxicam 15 MG Meloxicam 15 MG No Meloxicam 15 MG Tamsulosin HCl 0.4 MG Tamsulosin HCl 0.4 MG No Tamsulosin HCl 0.4 MG Losartan Potassium-H CTZ 100-25 MG Losartan Potassium-H CTZ 100-25 MG No 1{table t} QD Losartan Potassium- HCTZ 100-25 MG CVS Melatonin 5 MG CVS Melatonin 5 MG No CVS Melatonin 5 MG Meloxicam 15 MG Meloxicam 15 MG No 1{table t} QD Meloxicam 15 MG Meloxicam 15 MG Meloxicam 15 MG No Meloxicam 15 MG Tamsulosin HCl 0.4 MG Tamsulosin HCl 0.4 MG No Tamsulosin HCl 0.4 MG Losartan Potassium-H CTZ 100-25 MG Losartan Potassium-H CTZ 100-25 MG No 1{table t} QD Losartan Potassium- HCTZ 100-25 MG CVS Melatonin 5 MG CVS Melatonin 5 MG No CVS Melatonin 5 MG Meloxicam 15 MG Meloxicam 15 MG No 1{table t} QD Meloxicam 15 MG Meloxicam 15 MG Meloxicam 15 MG No Meloxicam 15 MG Tamsulosin HCl 0.4 MG Tamsulosin HCl 0.4 MG No Tamsulosin HCl 0.4 MG Losartan Potassium-H CTZ 100-25 MG Losartan Potassium-H CTZ 100-25 MG No 1{table t} QD Losartan Potassium- HCTZ 100-25 MG CVS Melatonin 5 MG CVS Melatonin 5 MG No CVS Melatonin 5 MG Meloxicam 15 MG Meloxicam 15 MG No 1{table t} QD Meloxicam 15 MG Meloxicam 15 MG Meloxicam 15 MG No Meloxicam 15 MG Tamsulosin HCl 0.4 MG Tamsulosin HCl 0.4 MG No Tamsulosin HCl 0.4 MG Losartan Potassium-H CTZ 100-25 MG Losartan Potassium-H CTZ 100-25 MG No 1{table t} QD Losartan Potassium- HCTZ 100-25 MG CVS Melatonin 5 MG CVS Melatonin 5 MG No CVS Melatonin 5 MG Meloxicam 15 MG Meloxicam 15 MG No 1{table t} QD Meloxicam 15 MG Meloxicam 15 MG Meloxicam 15 MG No Meloxicam 15 MG Tamsulosin HCl 0.4 MG Tamsulosin HCl 0.4 MG No Tamsulosin HCl 0.4 MG Losartan Potassium-H CTZ 100-25 MG Losartan Potassium-H CTZ 100-25 MG No 1{table t} QD Losartan Potassium- HCTZ 100-25 MG CVS Melatonin 5 MG CVS Melatonin 5 MG No CVS Melatonin 5 MG Meloxicam 15 MG Meloxicam 15 MG No 1{table t} QD Meloxicam 15 MG Meloxicam 15 MG Meloxicam 15 MG No Meloxicam 15 MG Tamsulosin HCl 0.4 MG Tamsulosin HCl 0.4 MG No Tamsulosin HCl 0.4 MG Losartan Potassium-H CTZ 100-25 MG Losartan Potassium-H CTZ 100-25 MG No 1{table t} QD Losartan Potassium- HCTZ 100-25 MG CVS Melatonin 5 MG CVS Melatonin 5 MG No CVS Melatonin 5 MG Meloxicam 15 MG Meloxicam 15 MG No 1{table t} QD Meloxicam 15 MG Meloxicam 15 MG Meloxicam 15 MG No 1{table t} QD Meloxicam 15 MG Losartan Potassium-H CTZ 100-25 MG Losartan Potassium-H CTZ 100-25 MG No 1{table t} QD Losartan Potassium- HCTZ 100-25 MG Tamsulosin HCl 0.4 MG Tamsulosin HCl 0.4 MG No Tamsulosin HCl 0.4 MG Melatonin 5 MG Melatonin 5 MG No 1{capsu le_at_b edtime_ as_need ed} QD Melatonin 5 MG Meloxicam 15 MG Meloxicam 15 MG No 1{table t} QD Meloxicam 15 MG Losartan Potassium-H CTZ 100-25 MG Losartan Potassium-H CTZ 100-25 MG No 1{table t} QD Losartan Potassium- HCTZ 100-25 MG Tamsulosin HCl 0.4 MG Tamsulosin HCl 0.4 MG No Tamsulosin HCl 0.4 MG Melatonin 5 MG Melatonin 5 MG No 1{capsu le_at_b edtime_ as_need ed} QD Melatonin 5 MG Melatonin 5 MG Melatonin 5 MG No 1{capsu le_at_b edtime_ as_need ed} QD Melatonin 5 MG Tamsulosin HCl 0.4 MG Tamsulosin HCl 0.4 MG No Tamsulosin HCl 0.4 MG Meloxicam 15 MG Meloxicam 15 MG 07-31 00:00 :00 No 1{table t} QD Meloxicam 15 MG Vital Signs Vital Name Observation Time Observation Value Comments Nohemi hernandez height 2022-08-03 14:00:00 64.5 [in_i] Comm on [facility] weight 2022-08-03 14:00:00 181.2 [lb_av] Co [facility] temperature 2022-08-03 14:00:00 97.3 [degF] Com [facility] bmi 2022-08-03 14:00:00 30.62 kg/m2 Comm on [facility] oximetry 2022-08-03 14:00:00 97 % Commo n [facility] respiratory rate 2022-08-03 14:00:00 16 /min [facility] blood pressure systolic 2022-08-03 14:00:00 113 mm[Hg] [facility] blood pressure diastolic 2022-08-03 14:00:00 59 mm[Hg] [facility] height 2022-05-06 15:00:00 64.5 [in_i] Comm on [facility] weight 2022-05-06 15:00:00 175 [lb_av] Comm on [facility] bmi 2022-05-06 15:00:00 29.57 kg/m2 Comm on [facility] height 2022-05-04 14:00:00 64.5 [in_i] Comm on [facility] weight 2022-05-04 14:00:00 176.8 [lb_av] Co [facility] temperature 2022-05-04 14:00:00 98.2 [degF] Com [facility] bmi 2022-05-04 14:00:00 29.88 kg/m2 Comm on [facility] oximetry 2022-05-04 14:00:00 96 % Commo n [facility] respiratory rate 2022-05-04 14:00:00 18 /min Common [facility] blood pressure systolic 2022-05-04 14:00:00 134 mm[Hg] Common [facility] blood pressure diastolic 2022-05-04 14:00:00 67 mm[Hg] Common [facility] height 2022-03-08 14:00:00 64.5 [in_i] Comm on [facility] weight 2022-03-08 14:00:00 182.1 [lb_av] [facility] 2022-03-08 14:00:00 97.2 [degF] Com [facility] bmi 2022-03-08 14:00:00 30.77 kg/m2 Comm on [facility] blood pressure systolic 2022-03-08 14:00:00 118 mm[Hg] Common [facility] blood pressure diastolic 2022-03-08 14:00:00 60 mm[Hg] [facility] height 2022-02-01 15:00:00 64.5 [in_i] Comm on [facility] weight 2022-02-01 15:00:00 180 [lb_av] Comm on [facility] temperature 2022-02-01 15:00:00 98.4 [degF] Com [facility] bmi 2022-02-01 15:00:00 30.42 kg/m2 Comm on [facility] oximetry 2022-02-01 15:00:00 97 % Commo n [facility] respiratory rate 2022-02-01 15:00:00 20 /min [facility] blood pressure systolic 2022-02-01 15:00:00 136 mm[Hg] Common [facility] blood pressure diastolic 2022-02-01 15:00:00 71 mm[Hg] [facility] height 2021-09-22 13:20:00 64.5 [in_i] Comm on [facility] weight 2021-09-22 13:20:00 180 [lb_av] Comm on [facility] temperature 2021-09-22 13:20:00 98.1 [degF] Com mon [facility] bmi 2021-09-22 13:20:00 30.42 kg/m2 Comm on [facility] oximetry 2021-09-22 13:20:00 96 % Commo n [facility] respiratory rate 2021-09-22 13:20:00 18 /min [facility] blood pressure systolic 2021-09-22 13:20:00 153 mm[Hg] [facility] blood pressure diastolic 2021-09-22 13:20:00 80 mm[Hg] [facility] Encounters Start Date/Time End Date/Time Encounter Type Admission Type Attending [facility] Care Facility Care Department Encounter ID Source 2023-08-16 11:26:00 Outpatient YanDaksha STLC STLC [id number] [facility] 2022-08-02 09:04:00 Outpatient RabunDaksha lowe STLC STLC [id number] [facility] 2022-06-23 14:42:00 Outpatient YanDaksha STLC STLMLC [id number] [facility] 2022-03-09 11:29:00 Outpatient YanDaksha STLC STLC [id number] [facility] 2022-03-08 14:41:01 Outpatient Mercedes Herediaa STLC STLMLC [id number] [facility] 2022-03-07 13:14:00 Outpatient Yan Daksha STLC STLC [id number] [facility] 2022-02-04 10:38:00 Outpatient Rabun, Daksha STLMLC STLMLC [id number] [facility] 2021-12-29 11:07:00 Outpatient Daksha Heredia STLMLC STLMLC [id number] [facility] 2021-12-17 07:38:00 Outpatient Daksha Heredia STLMLC STLMLC [id number] [facility] 2021-09-21 14:50:00 Outpatient Daksha Heredia STLMLC STLMLC [id number] [facility] 2021-09-20 09:36:01 Outpatient STLMLC STLMLC [id number] [facility] 2021-09-13 12:24:01 Outpatient STLMLC STLMLC [id number] [facility] 2021-09-01 13:25:11 Outpatient STLMLC STLMLC [id number] [facility] 2021-09-01 13:20:34 Outpatient STLMLC STLMLC [id number] [facility] 2021-09-01 13:11:50 Outpatient Daksha Heredia STLMLC STLMLC [id number] [facility] 2021-09-01 13:02:57 Outpatient Daksha Heredia STLMLC STLMLC [id number] [facility] 2021-09-01 12:25:48 Outpatient Daksha Heredia STLMLC STLMLC [id number] [facility] 2021-09-01 12:25:24 Outpatient Daksha Heredia STLMLC STLMLC [id number] [facility] 2021-09-01 12:24:25 Outpatient Joon Lu STLMLC STLMLC [id number] [facility] 2021-09-01 11:59:29 Outpatient Joon Lu STLMLC STLMLC [id number] [facility] 2021-09-01 11:58:31 Outpatient Joon Lu STADALGISA STLMLC [id number] [facility] 2021-09-01 11:41:48 Outpatient Joon Lu STLMLC STLMLC [id number] [facility] 2021-09-01 11:40:55 Outpatient Joon Lu STLMLC STLMLC [id number] [facility] 2021-09-01 11:34:39 Outpatient Joon Lu STLMLC STLMLC [id number] [facility] 2021-09-01 11:34:17 Outpatient Joon Lu STLMLC STLMLC [id number] [facility] 2021-09-01 11:29:51 Outpatient Daksha Heredia STLMLC STLMLC [id number] [facility] 2021-09-01 11:25:31 Outpatient Daksha Heredia STLMLC STLMLC [id number] [facility] 2021-09-01 11:25:23 Outpatient Ly Moura STLMLC STLMLC [id number] [facility] 2021-09-01 11:21:11 Outpatient Ly Moura STLMLC STLMLC [id number] [facility] 2021-09-01 11:19:49 Outpatient Ly Moura STLMLC STLMLC [id number] [facility] 2021-09-01 11:12:18 Outpatient Ly Moura STLMLC STLMLC [id number] [facility] 2022-09-29 00:00:00 2022-09-29 00:00:00 (TEL) STLMLC STLMLC [id number] [facility] 2022-09-16 00:00:00 2022-09-16 00:00:00 (TEL) STLMLC STLMLC [id number] [facility] 2022-08-03 00:00:00 2022-08-03 00:00:00 OFFICE VISIT ESTAB PT LEVEL 4 STLMLC STLMLC [id number] [facility] 2022-05-06 00:00:00 2022-05-06 00:00:00 SUB ANNUAL [facility] VISIT STLMLC STLMLC [id number] [facility] 2022-05-04 00:00:00 2022-05-04 00:00:00 OFFICE VISIT ESTAB PT LEVEL 4 STLMLC STLMLC [id number] [facility] 2022-04-05 00:00:00 2022-04-05 00:00:00 (TEL) STLMLC STLMLC [id number] [facility] 2022-03-08 00:00:00 2022-03-08 00:00:00 OFFICE VISIT ESTAB PT LEVEL 4 STLMLC STLMLC [id number] [facility] 2022-02-04 00:00:00 2022-02-04 00:00:00 (TEL) STLMLC STLMLC [id number] [facility] 2022-02-01 00:00:00 2022-02-01 00:00:00 OFFICE VISIT ESTAB PT LEVEL 4 STLMLC STLMLC [id number] [facility] 2022-01-31 00:00:00 2022-01-31 00:00:00 (TEL) STLMLC STLMLC [id number] [facility] 2021-09-22 00:00:00 2021-09-22 00:00:00 OFFICE VISIT ESTAB PT LEVEL 4 STLMLC STLMLC [id number] [facility] 2021-09-07 00:00:00 2021-09-07 00:00:00 (TEL) STLMLC STLMLC [id number] [facility] 2021-02-16 00:00:00 2021-02-16 00:00:00 Outpatient STLMLC STLMLC [id number] [facility] 2021-02-02 00:00:00 2021-02-02 00:00:00 Outpatient STLMLC STLMLC [id number] [facility] 2020-12-17 00:00:00 2020-12-17 00:00:00 Outpatient STLMLC STLMLC [id number] [facility] 2020-09-03 00:00:00 2020-09-03 00:00:00 Outpatient STLMLC STLMLC [id number] [facility] 2020-06-04 00:00:00 2020-06-04 00:00:00 Outpatient STLMLC STLMLC [id number] [facility] 2020-05-28 00:00:00 2020-05-28 00:00:00 Outpatient STLMLC STLMLC [id number] [facility] 2020-05-27 00:00:00 2020-05-27 00:00:00 Outpatient STLMLC STLMLC [id number] [facility] 2020-05-05 00:00:00 2020-05-05 00:00:00 Outpatient STLMLC STLMLC [id number] [facility] 2020-04-22 10:19:00 2020-04-22 10:19:00 [facility] [id number] [facility] 2020-04-21 09:18:00 2020-04-21 09:18:00 [facility] [id number] [facility] 2020-04-21 08:00:00 2020-04-21 08:00:00 [facility] [id number] [facility] 2020-04-15 14:15:00 2020-04-15 14:15:00 [facility] [id number] [facility] 2020-04-07 10:00:00 2020-04-07 10:00:00 [facility] [id number] [facility] 2020-04-06 08:00:00 2020-04-06 08:00:00 [facility] [id number] [facility] 2020-03-23 08:00:00 2020-03-23 08:00:00 [facility] [id number] [facility] 2020-03-11 10:00:00 2020-03-11 10:00:00 [facility] [id number] [facility] 2020-03-05 09:30:00 2020-03-05 09:30:00 [facility] [id number] [facility] 2020-02-24 21:35:00 2020-02-24 21:35:00 [facility] [id number] [facility] 2020-02-14 09:03:00 2020-02-14 09:03:00 [facility] [id number] [facility] 2020-02-12 10:32:00 2020-02-12 10:32:00 [facility] [id number] [facility] 2020-02-11 09:30:00 2020-02-11 09:30:00 [facility] [id number] [facility] 2019-11-22 15:20:00 2019-11-22 15:20:00 [facility] [id number] [facility] 2019-11-04 10:00:00 2019-11-04 10:00:[address] [facility] [id number] [facility] 2019-10-21 10:00:00 2019-10-21 10:00:[address] [facility] [id number] [facility] 2019-05-24 16:27:00 2019-05-24 16:27:[address] [facility] [id number] [facility] 2019-02-25 09:47:00 2019-02-25 09:47:[address] [facility] [id number] [facility] 2019-02-22 08:30:00 2019-02-22 08:30:[address] [facility] [id number] [facility] 2019-01-15 16:02:00 2019-01-15 16:02:[address] [facility] [id number] [facility] 2018-11-19 11:15:00 2018-11-19 11:15:[address] [facility] [id number] [facility] 2018-05-15 13:15:00 2018-05-15 13:15:[address] [facility] [id number] [facility] 2018-04-12 13:00:00 2018-04-12 13:00:[address] [facility] [id number] [facility]
--- NOTE | 2023-08-16 15:03 | RAD REPORT ---
EXAM DESCRIPTION: RAD - Knee Right 2 View - 08/16/2023 2:31 pm CLINICAL HISTORY: Right knee pain FINDINGS: A limited two view series Mild narrowing medial joint space. No fracture or dislocation noted
--- NOTE | 2023-08-16 15:04 | RAD REPORT ---
EXAM DESCRIPTION: RAD - Knee Left 2 View - 08/16/2023 2:31 pm CLINICAL HISTORY: Left knee pain FINDINGS: A limited two view series Mild to moderate narrowing medial joint space. Small osteophytes No fracture or dislocation noted
--- NOTE | 2023-08-16 15:06 | ER ---
Nurse's Notes [facility] Name: Puneet Willis Age: 78 yrs Sex: Male : 1945 Arrival Date: 08/16/2023 Time: 13:30 Bed IW1 Private MD: Diagnosis: Other specified arthritis, right knee;Other specified arthritis, left knee Presentation: 08/16 13:37 Chief complaint: EMS states: PATIENT KNEES GAVE OUT TODAY, NO INJURY NO LOC. CAREGIVER db TOLD PATIENT TO COME IN TODAY AND GET CHECKED OUT. COMPLAINED OF BILAT KNEE PAIN. GLUCOSE 135. Coronavirus screen: Vaccine status: Patient reports receiving the 2nd dose of the covid vaccine. Client denies travel out of the [place] in the last 14 days. At this time, the client does not indicate any symptoms associated with coronavirus-19. Ebola Screen: Patient negative for fever greater than or equal to 101.5 degrees Fahrenheit, and additional compatible Ebola Virus Disease symptoms Patient denies exposure to infectious person. Patient denies travel to an Ebola-affected area in the 21 days before illness onset. No symptoms or risks identified at this time. Initial Sepsis Screen: Does the patient meet any 2 criteria? No. Patient's initial sepsis screen is negative. Does the patient have a suspected source of infection? No. Patient's initial sepsis screen is negative. Risk Assessment: Do you want to hurt yourself or someone else? Patient reports no desire to harm self or others. Onset of symptoms was August 16, 2023. 13:37 Method Of Arrival: EMS: [facility] db 13:37 Acuity: MICHAELA 3 db Triage Assessment: 13:37 General: Appears in no apparent distress. comfortable, Behavior is calm, cooperative. db Pain: Complains of pain in right leg and left leg. Neuro: Level of Consciousness is awake, alert, obeys commands, Oriented to person, place, time, situation. Respiratory: Airway is patent Respiratory effort is even, unlabored, Respiratory pattern is regular, symmetrical. Historical: - Allergies: 13:36 No Known Allergies; db - PMHx: 13:36 Arthritis; Hypertension; db - Immunization history:: Adult Immunizations unknown. - Social history:: Smoking status: Patient denies any tobacco usage or history of. Screenin:13 [facility] ED Fall Risk Assessment (Adult) Score/Fall Risk Level 0 - 2 = Low Risk ll1 Oriented to surroundings, Maintained a safe environment, Educated pt \T\ family on fall prevention, incl call for assistance when getting out of bed, Hourly rounding (assess needs \T\ fall precautionary measures) done. Abuse screen: Denies threats or abuse. Nutritional screening: No deficits noted. Tuberculosis screening: No symptoms or risk factors identified. Assessment: 15:12 Reassessment: No changes from previously documented assessment. Patient and/or family ll1 updated on plan of care and expected duration. Pain level reassessed. Patient is alert, oriented x 3, equal unlabored respirations, skin warm/dry/pink. Vital Signs: 13:37 BP 102 / 81; Pulse 82; Resp 18; Temp 97.4(TE); Pulse Ox 99% ; db ED Course: 13:33 Patient arrived in ED. im 13:35 [facility] Chacon [facility]C [facility] kb 13:35 Imer Root MD is Attending Physician. kb 13:38 Triage completed. db 13:39 Arm band placed on right wrist. Patient placed in waiting room. db 14:33 Knee Right 2 View XRAY In Process Unspecified. EDMS 14:33 Knee Left 2 View XRAY In Process Unspecified. EDMS 15:13 No provider procedures requiring assistance completed. Patient did not have IV access ll1 during this emergency room visit. Administered Medications: No medications were administered Outcome: 15:05 Discharge ordered by MD. kb 15:13 Patient left the ED. ll1 15:13 Discharged to home via wheelchair, ll1 15:13 Condition: stable 15:13 Discharge instructions given to patient, Instructed on discharge instructions, follow up and referral plans. Demonstrated understanding of instructions, follow-up care, Signatures: Dispatcher [employer] EDMS Torie Chacon FNP-C FNP-Ckb Lewis, Lynsay, RN RN ll1 Andria High RN RN db Glo Renee im Corrections: (The following items were deleted from the chart) 13:37 13:36 Allergies: No Known Allergies; db db 13:37 13:36 Allergies: Aspirin; db db 13:40 13:37 Chief complaint: EMS states: PATIENT FROM HOME FELL TODAY, NO INJURY NO LOC. db COMPLAINED OF BILAT KNEE PAIN. GLUCOSE 135. db
--- NOTE | 2023-08-16 15:06 | EDPHYS ---
Physician Documentation [facility] Name: Puneet Willis Age: 78 yrs Sex: Male : 1945 Arrival Date: 08/16/2023 Time: 13:30 Bed IW1 Private MD: ED Physician Imer Root HPI: 08/16 14:57 This 78 yrs old Male presents to ER via EMS with complaints of Knee Pain. kb 14:58 Pt is a 78 year old male with a history of arthritis in both knees who presents for kb increase pain to both knees and reports they have been buckling when he walks at times. Denies fall. Caregiver recommended he come to the ER for evaluation. Denies weakness, abd pain, n/v/d, fever, shortness of breath, chest pain. Historical: - Allergies: 13:36 No Known Allergies; db - PMHx: 13:36 Arthritis; Hypertension; db - Immunization history:: Adult Immunizations unknown. - Social history:: Smoking status: Patient denies any tobacco usage or history of. ROS: 14:57 Constitutional: Negative for fever, chills, and weight loss, kb 14:57 MS/extremity: Positive for pain, of the right knee and left knee, 14:57 All other systems are negative, 14:57 All other systems are negative, Exam: 14:57 Constitutional: This is a well developed, well nourished patient who is awake, alert, kb and in no acute distress. Head/Face: Normocephalic, atraumatic. ENT: Moist Mucous membranes Cardiovascular: Regular rate Respiratory: Respirations even and unlabored. No increased work of breathing. Talking in full sentences Abdomen/GI: Soft, non-tender. No distention Skin: Warm, dry with normal turgor. Normal color. MS/ Extremity: Pulses equal, no cyanosis. Neurovascular intact. Full, normal range of motion. Neuro: Awake and alert, GCS 15, oriented to person, place, time, and situation. Moves all extremities. Vital Signs: 13:37 BP 102 / 81; Pulse 82; Resp 18; Temp 97.4(TE); Pulse Ox 99% ; db MDM: 13:35 Patient medically screened. kb 14:57 Differential diagnosis: dislocation, closed fracture, contusion, arthritis. Data kb reviewed: vital signs, nurses notes. Historians other than the Patient: EMS: [facility]. Counseling: I had a detailed discussion with the patient and/or guardian regarding the historical points, exam findings, and any diagnostic results supporting the discharge/admit diagnosis, radiology results, the need for outpatient follow up, a family practitioner, a orthopedic surgeon, to return to the emergency department if symptoms worsen or persist or if there are any questions or concerns that arise at home. 08/16 13:35 Order name: Knee Right 2 View XRAY; Complete Time: 15:04 kb 08/16 13:35 Order name: Knee Left 2 View XRAY; Complete Time: 15:05 kb Administered Medications: No medications were administered Disposition: 16:22 Co-signature as Attending Physician, Imer Root MD I reviewed the patient's care rn provided by the Advanced Practice Provider and agree with the diagnosis and treatment plan. Disposition Summary: 08/16/23 15:05 Discharge Ordered Notes: Location: Home kb Condition: Stable kb Diagnosis - Other specified arthritis, right knee kb - Other specified arthritis, left knee kb Followup: kb - With: Emergency Department - When: As needed - Reason: Worsening of condition Followup: kb - With: Private Physician - When: 2 - 3 days - Reason: Recheck today's complaints, Continuance of care, Re-evaluation by your physician Discharge Instructions: - Discharge Summary Sheet kb - Arthritis, [id number] kb Forms: - Medication Reconciliation Form kb - Thank You Letter kb - Antibiotic Education kb - Prescription Opioid Use kb - Patient Portal Instructions kb - Leadership Thank You Letter kb Signatures: Dispatcher [employer] EDMS Torie Chacon, DIRECTOR OF MUSIC-C DIRECTOR OF MUSIC-Imer Vasquez MD MD rn Benton, Danielle, RN RN db Corrections: (The following items were deleted from the chart) 13:37 13:36 Allergies: No Known Allergies; db db 13:37 13:36 Allergies: Aspirin; db db 17:00 14:57 Constitutional: This is a well developed, well nourished patient who is awake, kb alert, and in no acute distress. Head/Face: Normocephalic, atraumatic. ENT: Moist Mucous membranes Cardiovascular: Regular rate Respiratory: Respirations even and unlabored. No increased work of breathing. Talking in full sentences Abdomen/GI: Soft, non-tender. No distention Skin: Warm, dry with normal turgor. Normal color. MS/ Extremity: Pulses equal, no cyanosis. Neurovascular intact. Full, normal range of motion. Neuro: Awake and alert, GCS 15, oriented to person, place, time, and situation. Moves all extremities. Normal gait. kb
[2023-08-16 16:35] VITALS: BP 102/81; TEMP 97.4; O2SAT 99
== END ==
LOC: ER 13:30
DX: M13.862 Other specified arthritis, left knee (principal); M13.861 Other specified arthritis, right knee
CPT/HCPCS: 99283

== ENCOUNTER 2024-07-29 11:36 | Emergency (ER) | payer OTHER ==
--- OUTSIDE RECORDS SUMMARY | 2024-07-29 11:40 | XMS REPORT | Continuity of Care Document ---
Author Name Unknown Address [address] [facility] [address] [place] [address] [facility] thconnect Address [address] [facility] [address] [place] [address] Care Team Providers Care Cleaning Attendant Name Role Phone Daksha Heredia Attending Clinician Unavailable Joon Lu Attending Clinician Unavailable Ly Moura Attending Clinician Unavailable GREG HILL Attending Clinician Unavailable Payers Payer Name Policy Type Policy Number Effective Date Expirati on Date Source [facility] 5 [id number] 2023 00:00:00 Problems Condition Name Condition Details Condition Category Status Onset Date Resolution Date Last Treatment Date Treating Clinician Comments Source Osteoarthr itis of knee Primary osteoarthr itis of right knee Problem [facility] Congestive heart failure CHF (congestiv e heart failure) Problem [facility] [id number] BPH loc w urin obs/LUTS Problem [facility] [id number] Peripheral polyneurop athy Problem [facility] [id number] Stage 2 chronic kidney disease Problem [facility] [id number] Pain in joint of right shoulder Problem [facility] Dementia Dementia Problem [facility] [id number] Arthritis of knee, left Problem [facility] [id number] Other chronic pain Problem [facility] [id number] Psychophys iological insomnia Problem [facility] [id number] Heart failure, unspecifie d HF chronicity , unspecifie d heart failure type Problem [facility] [id number] Essential (primary) hypertensi on Problem [facility] Reactive depression Reactive depression Problem [facility] [id number] Arthritis of right knee Problem [facility] Allergies, Adverse Reactions, Alerts Allergy Name Allergy Type Status Severity Reaction(s) Onset Date Inactive Date Treating Clinician Comments Source lisinopr il lisinopr il Active cough [facility] Social History Social Habit Start Date Stop Date Quantity Comments Source History of Tobacco Use [facility] Sex Assigned At [facility] Smoking Status Start Date Stop Date Source Never Smoker [facility] Medications Ordered Medication Name Filled Medication Name Start Date Stop Date Current Medication? Ordering Clinician Indication Dosage Frequency Signature (SIG) Comments Components Source Kenalog (Triamcinol one) Kenalog (Triamcinol one) 03-08 00:00: 00 No 40mg [facility] Bupivicaine [place] Bupivicaine [place] 03-08 00:00: 00 No 2.5mg [facility] Kenalog (Triamcinol one) Kenalog (Triamcinol one) 03-08 00:00: 00 No 40mg [facility] Bupivicaine [place] Bupivicaine [place] 03-08 00:00: 00 No 2.5mg [facility] Kenalog (Triamcinol one) Kenalog (Triamcinol one) 03-08 00:00: 00 No 40mg [facility] Bupivicaine [place] Bupivicaine [place] 03-08 00:00: 00 No 2.5mg [facility] Kenalog (Triamcinol one) Kenalog (Triamcinol one) 03-08 00:00: 00 No 40mg [facility] Bupivicaine [place] Bupivicaine [place] 0 03-08 00:00: 00 No 2.5mg [facility] Kenalog (Triamcinol one) Kenalog (Triamcinol one) 0 03-08 00:00: 00 No 40mg [facility] Bupivicaine [place] Bupivicaine [place] 0 03-08 00:00: 00 No 2.5mg [facility] Kenalog (Triamcinol one) Kenalog (Triamcinol one) 0 03-08 00:00: 00 No 40mg [facility] Bupivicaine [place] Bupivicaine [place] 03-08 00:00: 00 No 2.5mg [facility] Kenalog (Triamcinol one) Kenalog (Triamcinol one) 03-08 00:00: 00 No 40mg [facility] Bupivicaine [place] Bupivicaine [place] 0 03-08 00:00: 00 No 2.5mg [facility] Kenalog (Triamcinol one) Kenalog (Triamcinol one) 03-08 00:00: 00 No 40mg [facility] Bupivicaine [place] Bupivicaine [place] 0 03-08 00:00: 00 No 2.5mg [facility] Kenalog (Triamcinol one) Kenalog (Triamcinol one) 03-08 00:00: 00 No 40mg [facility] Bupivicaine [place] Bupivicaine [place] 0 03-08 00:00: 00 No 2.5mg [facility] Kenalog (Triamcinol one) Kenalog (Triamcinol one) 0 03-08 00:00: 00 No 40mg [facility] Bupivicaine [place] Bupivicaine [place] 0 03-08 00:00: 00 No 2.5mg [facility] Kenalog (Triamcinol one) Kenalog (Triamcinol one) 0 8- 00:00: 00 No 40mg [facility] Bupivicaine [place] Bupivicaine [place] 2021-0 8-02 00:00: 00 No 2.5mg [facility] Bupivicaine [place] Bupivicaine [place] 0 7-13 00:00: 00 No 2.5mg [facility] Kenalog (Triamcinol one) Kenalog (Triamcinol one) 0 7-13 00:00: 00 No 40mg [facility] Bupivicaine [place] Bupivicaine [place] 0 7 00:00: 00 No 2.5mg [facility] Kenalog (Triamcinol one) Kenalog (Triamcinol one) 0 7- 00:00: 00 No 40mg [facility] Bupivicaine [place] Bupivicaine [place] 0 7 00:00: 00 No 2.5mg [facility] Kenalog (Triamcinol one) Kenalog (Triamcinol one) 0 7 00:00: 00 No 40mg [facility] Bupivicaine [place] Bupivicaine [place] 2020-0 7- 00:00: 00 No 2.5mg [facility] Kenalog (Triamcinol one) Kenalog (Triamcinol one) 0 7- 00:00: 00 No 40mg [facility] Bupivicaine [place] Bupivicaine [place] 0 7-13 00:00: 00 No 2.5mg [facility] Kenalog (Triamcinol one) Kenalog (Triamcinol one) 0 7-13 00:00: 00 No 40mg [facility] Bupivicaine [place] Bupivicaine [place] 2020-0 7-13 00:00: 00 No 2.5mg [facility] Kenalog (Triamcinol one) Kenalog (Triamcinol one) 0 02-16 00:00: 00 No 40mg [facility] Bupivicaine [place] Bupivicaine [place] 0 02-16 00:00: 00 No 2.5mg [facility] Kenalog (Triamcinol one) Kenalog (Triamcinol one) 0 02-16 00:00: 00 No 40mg [facility] Bupivicaine [place] Bupivicaine [place] 0 02-16 00:00: 00 No 2.5mg [facility] Kenalog (Triamcinol one) Kenalog (Triamcinol one) 0 02-16 00:00: 00 No 40mg [facility] Bupivicaine [place] Bupivicaine [place] 0 02-16 00:00: 00 No 2.5mg [facility] Kenalog (Triamcinol one) Kenalog (Triamcinol one) 0 02-16 00:00: 00 No 40mg [facility] Bupivicaine [place] Bupivicaine [place] 0 02-16 00:00: 00 No 2.5mg [facility] Kenalog (Triamcinol one) Kenalog (Triamcinol one) 0 02-16 00:00: 00 No 40mg [facility] Bupivicaine [place] Bupivicaine [place] 0 02-16 00:00: 00 No 2.5mg [facility] Kenalog (Triamcinol one) Kenalog (Triamcinol one) 0 02-16 00:00: 00 No 40mg [facility] Bupivicaine [place] Bupivicaine [place] 2020-0 629 00:00: 00 No 2.5mg [facility] Kenalog (Triamcinol one) Kenalog (Triamcinol one) 0 02-02 00:00: 00 No 40mg [facility] Bupivicaine [place] Bupivicaine [place] 0 02-02 00:00: 00 No 2.5mg [facility] Kenalog (Triamcinol one) Kenalog (Triamcinol one) 0 02-02 00:00: 00 No 40mg [facility] Bupivicaine [place] Bupivicaine [place] 0 02-02 00:00: 00 No 2.5mg [facility] Kenalog (Triamcinol one) Kenalog (Triamcinol one) 0 02-02 00:00: 00 No 40mg [facility] Bupivicaine [place] Bupivicaine [place] 0 02-02 00:00: 00 No 2.5mg [facility] Kenalog (Triamcinol one) Kenalog (Triamcinol one) 0 02-02 00:00: 00 No 40mg [facility] Bupivicaine [place] Bupivicaine [place] 0 02-02 00:00: 00 No 2.5mg [facility] Kenalog (Triamcinol one) Kenalog (Triamcinol one) 0 02-02 00:00: 00 No 40mg [facility] Bupivicaine [place] Bupivicaine [place] 0 02-02 00:00: 00 No 2.5mg [facility] Kenalog (Triamcinol one) Kenalog (Triamcinol one) 0 02-02 00:00: 00 No 40mg [facility] Bupivicaine [place] Bupivicaine [place] 0 02-02 00:00: 00 No 2.5mg [facility] Kenalog (Triamcinol one) Kenalog (Triamcinol one) 0 02-02 00:00: 00 No 40mg [facility] Bupivicaine [place] Bupivicaine [place] 0 02-02 00:00: 00 No 2.5mg [facility] Kenalog (Triamcinol one) Kenalog (Triamcinol one) 0 02-02 00:00: 00 No 40mg [facility] Bupivicaine [place] Bupivicaine [place] 0 02-02 00:00: 00 No 2.5mg [facility] Kenalog (Triamcinol one) Kenalog (Triamcinol one) 0 02-02 00:00: 00 No 40mg [facility] Bupivicaine [place] Bupivicaine [place] 0 02-02 00:00: 00 No 2.5mg [facility] Kenalog (Triamcinol one) Kenalog (Triamcinol one) 0 02-02 00:00: 00 No 40mg [facility] Bupivicaine [place] Bupivicaine [place] 0 02-02 00:00: 00 No 2.5mg [facility] Kenalog (Triamcinol one) Kenalog (Triamcinol one) 0 02-02 00:00: 00 No 40mg [facility] PARoxetine HCl 10 MG PARoxetine HCl 10 MG 2020-0 12-17 00:00: 00 No 1{table t_in_th e_morni ng} QD PARoxetine HCl 10 MG PARoxetine HCl 10 MG PARoxetine HCl 10 MG 2020-0 12-17 00:00: 00 No 1{table t_in_th e_morni ng} QD PARoxetine HCl 10 MG PARoxetine HCl 10 MG PARoxetine HCl 10 MG 2020-0 13 00:00: 00 No 1{table t_in_th e_morni ng} QD PARoxetine HCl 10 MG PARoxetine HCl 10 MG PARoxetine HCl 10 MG 2020-0 13 00:00: 00 No 1{table t_in_th e_morni ng} QD PARoxetine HCl 10 MG PARoxetine HCl 10 MG PARoxetine HCl 10 MG 2020-0 13 00:00: 00 No 1{table t_in_th e_morni ng} [...] 100-25 MG Losartan Potassium-H CTZ 100-25 MG 2020-0 9-15 00:00: 00 No 1{table t} QD Losartan Potassium- HCTZ 100-25 MG Furosemide Furosemide 2020-0 8-31 00:00: 00 15 00:00 :00 No Kin Abbey Lu 1 tablet [facility] Lasix 20 MG Lasix 20 [...] Lasix 20 MG Lasix 20 MG 2020-0 03-11 00:00: 00 No 1{table t} QD Lasix 20 MG Lasix 20 MG Lasix 20 MG 2020-0 03-11 00:00: 00 No 1{table t} QD Lasix 20 MG Lasix 20 MG Lasix 20 MG 2020-0 03-11 00:00: 00 No 1{table t} QD Lasix 20 MG Lasix 20 MG Lasix 20 MG 2020-0 8- 00:00: 00 No 1{table t} QD Lasix 20 MG Lasix 20 MG Lasix 20 MG 2020-0 03-11 00:00: 00 No 1{table t} QD Lasix 20 MG Lasix 20 MG Lasix 20 MG 2020-0 03-11 00:00: 00 No 1{table t} QD Lasix 20 MG Meloxicam 7.5 MG Meloxicam 7.5 MG No 1{table t} QD Meloxicam 7.5 MG Melatonin 5 MG Melatonin 5 MG [...] 5 MG No [facility] Melatonin 5 MG [facility] Melatonin 5 MG [facility]S Melatonin 5 MG No CVS Melatonin 5 MG Meloxicam 15 MG Meloxicam 15 MG No Meloxicam 15 MG Tamsulosin HCl 0.4 MG Tamsulosin HCl 0.4 MG No Tamsulosin HCl 0.4 MG Losartan Potassium-H CTZ 100-25 MG Losartan Potassium-H CTZ 100-25 MG No 1{table t} QD Losartan Potassium- HCTZ 100-25 MG Meloxicam 15 MG Meloxicam 15 MG [...] Vital Name Observation Time Observation Value Comments S ource height 2022-08-03 14:00:00 64.5 [in_i] Comm on [facility] weight 2022-08-03 14:00:00 181.2 [lb_av] Co mmon [facility] temperature 2022-08-03 14:00:00 97.3 [degF] Com mon [facility] bmi 2022-08-03 14:00:00 30.62 kg/m2 Comm on [facility] oximetry 2022-08-03 14:00:00 97 % Commo n [facility] respiratory rate 2022-08-03 14:00:00 16 /min [facility] blood pressure systolic 2022-08-03 14:00:00 113 mm[Hg] [facility] blood pressure diastolic 2022-08-03 14:00:00 59 mm[Hg] Common [facility] height 2022-05-06 15:00:00 64.5 [in_i] Comm on [facility] weight 2022-05-06 15:00:00 175 [lb_av] Comm on [facility] bmi 2022-05-06 15:00:00 29.57 kg/m2 Comm on [facility] height 2022-05-04 14:00:00 64.5 [in_i] Comm on [facility] weight 2022-05-04 14:00:00 176.8 [lb_av] Co mmon [facility] temperature 2022-05-04 14:00:00 98.2 [degF] Com [facility] bmi 2022-05-04 14:00:00 29.88 kg/m2 Comm on [facility] oximetry 2022-05-04 14:00:00 96 % Commo n [facility] respiratory rate 2022-05-04 14:00:00 18 /min [facility] blood pressure systolic 2022-05-04 14:00:00 134 mm[Hg] [facility] blood pressure diastolic 2022-05-04 14:00:00 67 mm[Hg] [facility] height 2022-03-08 14:00:00 64.5 [in_i] Comm on [facility] weight 2022-03-08 14:00:00 182.1 [lb_av] Co mmon [facility] temperature 2022-03-08 14:00:00 97.2 [degF] Com [facility] bmi 2022-03-08 14:00:00 30.77 kg/m2 Comm on [facility] blood pressure systolic 2022-03-08 14:00:00 118 mm[Hg] [facility] blood pressure diastolic 2022-03-08 14:00:00 60 mm[Hg] [facility] height 2022-02-01 15:00:00 64.5 [in_i] Comm on [facility] weight 2022-02-01 15:00:00 180 [lb_av] Comm on [facility] temperature 2022-02-01 15:00:00 98.4 [degF] Com mon [facility] bmi 2022-02-01 15:00:00 30.42 kg/m2 Comm on [facility] oximetry 2022-02-01 15:00:00 97 % Commo n [facility] respiratory rate 2022-02-01 15:00:00 20 /min [facility] blood pressure systolic 2022-02-01 15:00:00 136 mm[Hg] Common [facility] blood pressure diastolic 2022-02-01 15:00:00 71 mm[Hg] Common [facility] height 2021-09-22 13:20:00 64.5 [in_i] Comm on [facility] weight 2021-09-22 13:20:00 180 [lb_av] Comm on [facility] temperature 2021-09-22 13:20:00 98.1 [degF] Com mon [facility] bmi 2021-09-22 13:20:00 30.42 kg/m2 Comm on [facility] oximetry 2021-09-22 13:20:00 96 % Commo n [facility] respiratory rate 2021-09-22 13:20:00 18 /min [facility] blood pressure systolic 2021-09-22 13:20:00 153 mm[Hg] Common [facility] blood pressure diastolic 2021-09-22 13:20:00 80 mm[Hg] Common [facility] Encounters Start Date/Time End Date/Time Encounter Type Admission Type Attending [facility] Care Facility Care Department Encounter ID Source 2023-08-16 11:26:00 Outpatient Daksha Heredia STLMLC STLMLC [id number] [facility] 2022-08-02 09:04:00 Outpatient Daksha Heredia STLMLC ST[facility] [id number] [facility] 2022-06-23 14:42:00 Outpatient Daksha Heredia STLMLC STLMLC [id number] [facility] 2022-03-09 11:29:00 Outpatient Daksha Heredia STLMLC STLMLC [id number] [facility] 2022-03-08 14:41:01 Outpatient Daksha Heredia STLMLC STLMLC [id number] [facility] 2022-03-07 13:14:00 Outpatient Daksha Heredia STLMLC STLMLC [id number] [facility] 2022-02-04 10:38:00 Outpatient Daksha Heredia STLMLC STLMLC [id number] [facility] 2021-12-29 11:07:00 Outpatient Daksha Heredia STLMLC STLMLC [id number] [facility] 2021-12-17 07:38:00 Outpatient Daksha Heredia STLMLC STLMLC [id number] [facility] 2021-09-21 14:50:00 Outpatient Daksha Heredia STLMLC STLMLC [id number] [facility] 2021-09-20 09:36:01 Outpatient STLMLC STLMLC [id number] [facility] 2021-09-13 12:24:01 Outpatient STLMLC STLMLC [id number] [facility] 2021-09-01 13:25:11 Outpatient STLMLC STLMLC [id number] [facility] 2021-09-01 13:20:34 Outpatient STLMLC STLMLC [id number] [facility] 2021-09-01 13:11:50 Outpatient Daksha Heredia STADALGISA STLMLC [id number] [facility] 2021-09-01 13:02:57 Outpatient Daksha Heredia STADALGISA STLMLC [id number] [facility] 2021-09-01 12:25:48 Outpatient Daksha Heredia STRAMONLC STLMLC [id number] [facility] 2021-09-01 12:25:24 Outpatient Daksha Heredia STRAMONLC STLMLC [id number] [facility] 2021-09-01 12:24:25 Outpatient Joon Lu STADALGISA STLMLC [id number] [facility] 2021-09-01 11:59:29 Outpatient Joon Lu STADALGISA STLMLC [id number] [facility] 2021-09-01 11:58:31 Outpatient Joon Lu STADALGISA STLMLC [id number] [facility] 2021-09-01 11:41:48 Outpatient Joon Lu STLMLC STLMLC [id number] [facility] 2021-09-01 11:40:55 Outpatient Joon Lu STLMLC STLMLC [id number] [facility] 2021-09-01 11:34:39 Outpatient Joon Lu STLMLC STLMLC [id number] [facility] 2021-09-01 11:34:17 Outpatient Joon Lu STLMLC STLMLC [id number] [facility] 2021-09-01 11:29:51 Outpatient Daksha Heredia STRAMONLC STLMLC [id number] [facility] 2021-09-01 11:25:31 Outpatient Daksha Heredia STLMLC STLMLC [id number] [facility] 2021-09-01 11:25:23 Outpatient Ly Moura STLMLC STLMLC [id number] [facility] 2021-09-01 11:21:11 Outpatient MouraJayne lis STLMLC STLMLC [id number] [facility] 2021-09-01 11:19:49 Outpatient MouraJaynes STLMLC STLMLC [id number] [facility] 2021-09-01 11:12:18 Outpatient MouraJayne lis STLMLC STLMLC [id number] [facility] 2023-11-02 09:30:00 2023-11-02 09:30:00 Outpatient GREG HILL [id number] Christiane Ventura 2023-09-05 00:00:00 2023-09-05 00:00:00 (TEL) STLMLC STLMLC [id number] [facility] 2022-09-29 00:00:00 2022-09-29 00:00:00 (TEL) STLMLC STLMLC [id number] [facility] 2022-09-16 00:00:00 2022-09-16 00:00:00 (TEL) STLMLC STLMLC [id number] [facility] 2022-08-03 00:00:00 2022-08-03 00:00:00 OFFICE VISIT ESTAB PT LEVEL 4 STLMLC STLMLC [id number] [facility] 2022-05-06 00:00:00 2022-05-06 00:00:00 SUB ANNUAL [facility] WELLNESS VISIT STLMLC STLMLC [id number] [facility] 2022-05-04 00:00:00 2022-05-04 00:00:00 OFFICE VISIT ESTAB PT LEVEL 4 STLMLC STLMLC [id number] [facility] 2022-04-05 00:00:00 2022-04-05 00:00:00 (TEL) STLMLC STLMLC [id number] [facility] 2022-03-08 00:00:00 2022-03-08 00:00:00 OFFICE VISIT ESTAB PT LEVEL 4 STLMLC STLMLC [id number] [facility] 2022-02-04 00:00:00 2022-02-04 00:00:00 (TEL) STLMLC STLMLC [id number] [facility] 2022-02-01 00:00:00 2022-02-01 00:00:00 OFFICE VISIT ESTAB PT LEVEL 4 STLMLC STLMLC [id number] [facility] 2022-01-31 00:00:00 2022-01-31 00:00:00 (TEL) STLMLC STLMLC [id number] [facility] 2021-09-22 00:00:00 2021-09-22 00:00:00 OFFICE VISIT ESTAB PT LEVEL 4 STLMLC STLMLC [id number] [facility] 2021-09-07 00:00:00 2021-09-07 00:00:00 (TEL) STLMLC STLMLC [id number] [facility] 2021-02-16 00:00:00 2021-02-16 00:00:00 Outpatient STLMLC STLMLC [id number] [facility] 2021-02-02 00:00:00 2021-02-02 00:00:00 Outpatient STLMLC STLMLC [id number] [facility] 2020-12-17 00:00:00 2020-12-17 00:00:00 Outpatient STLMLC STLMLC [id number] [facility] 2020-09-03 00:00:00 2020-09-03 00:00:00 Outpatient STLMLC STLMLC [id number] [facility] 2020-06-04 00:00:00 2020-06-04 00:00:00 Outpatient STLMLC STLMLC [id number] [facility] 2020-05-28 00:00:00 2020-05-28 00:00:00 Outpatient STLMLC STLMLC [id number] [facility] 2020-05-27 00:00:00 2020-05-27 00:00:00 Outpatient STLMLC STLMLC [id number] [facility] 2020-05-05 00:00:00 2020-05-05 00:00:00 Outpatient STLMLC STLMLC [id number] [facility] 2020-04-22 10:19:00 2020-04-22 10:19:00 [facility] [id number] [facility] 2020-04-21 09:18:00 2020-04-21 09:18:00 [facility] [id number] [facility] 2020-04-21 08:00:00 2020-04-21 08:00:00 [facility] [id number] [facility] 2020-04-15 14:15:00 2020-04-15 14:15:00 [facility] [id number] [facility] 2020-04-07 10:00:00 2020-04-07 10:00:00 [facility] [id number] [facility] 2020-04-06 08:00:00 2020-04-06 08:00:00 [facility] [id number] [facility] 2020-03-23 08:00:00 2020-03-23 08:00:00 [facility] [id number] [facility] 2020-03-11 10:00:00 2020-03-11 10:00:00 [facility] [id number] [facility] 2020-03-05 09:30:00 2020-03-05 09:30:00 [facility] [place] [id number] [facility] 2020-02-24 21:35:00 2020-02-24 21:35:00 [facility] [id number] [facility] 2020-02-14 09:03:00 2020-02-14 09:03:00 [facility] [id number] [facility] 2020-02-12 10:32:00 2020-02-12 10:32:00 [facility] [id number] [facility] 2020-02-11 09:30:00 2020-02-11 09:30:00 [facility] [id number] [facility] 2019-11-22 15:20:00 2019-11-22 15:20:00 [facility] [id number] [facility] 2019-11-04 10:00:00 2019-11-04 10:00:00 [facility] [id number] [facility] 2019-10-21 10:00:00 2019-10-21 10:00:[address] [facility] [facility] [address] [facility] [id number] [facility] 2019-05-24 16:27:00 2019-05-24 16:27:00 [facility] [id number] [facility] 2019-02-25 09:47:00 2019-02-25 09:47:00 [facility] [id number] [facility] 2019-02-22 08:30:00 2019-02-22 08:30:00 [facility] [id number] [facility] 2019-01-15 16:02:00 2019-01-15 16:02:00 [facility] [id number] [facility] 2018-11-19 11:15:00 2018-11-19 11:15:00 [facility] Medicine [id number] [facility] 2018-05-15 13:15:00 2018-05-15 13:15:00 [facility] Medicine [id number] [facility] 2018-04-12 13:00:00 2018-04-12 13:00:00 [facility] [id number] [facility]
[2024-07-29 12:50] LABS: Absolute Eosinophils 2.5 K/uL (0-0.5); Absolute Lymphocytes (CBC) 2.8 K/uL (0.7-4.9); Absolute Monocytes 0.6 K/uL (0.1-1.3); Absolute Neutrophil 4.7 K/uL (1.8-8.0); Basophils % 0.2 % (0-1.3); Eosinophils % 23.4 % (0-4.4); Hematocrit 45.1 % (39.6-49.0); Hemoglobin 14.7 g/dL (13.6-17.9); Lymphocytes % 26.8 % (15.3-44.8); MCH 32.3 pg (27.0-35.0); MCHC 32.7 g/dL (32.0-36.0); MCV 98.9 fL (80-100); MPV 9.1 fL (7.6-11.3); Monocytes % 5.5 % (3.3-12.3); Neutrophils % 44.1 % (41.7-73.7); Platelets 292 thou/uL (152-406); RBC Red Blood Cell Count 4.56 M/uL (4.33-5.43); Red Cell Distribution Width 12.7 % (12.1-15.2)
[2024-07-29 12:53] LABS: PT Prothrombin Time 14.5 SECONDS (9.4-12.5); Protime INR 1.3
[2024-07-29 13:03] LABS: SARS-CoV-2 Antigen CONTROL BLUE LINE VIS/BG OK; SARS-CoV-2 Antigen Rapid Res Negative (Negative)
[2024-07-29] MEDS ORDERED: KETOROLAC 30 MG/ML INJ ONE (13:06)
[2024-07-29] MEDS ORDERED: ONDANSETRON 4 MG/2 ML VIAL ONE (13:06)
[2024-07-29] MEDS ORDERED: dexAMETHasone 10 MG/ML VIAL ONE (13:06)
[2024-07-29] MEDS ORDERED: NA CHLORIDE 0.9% 500 ML ONE (13:06)
[2024-07-29 13:10] LABS: ALT/SGPT 22 U/L (16-61); AST/SGOT 19 U/L (15-37); Albumin 3.7 g/dL (3.4-5.0); Albumin/Globulin Ratio 0.9 (1.1-1.8); Alkaline Phosphatase 62 U/L (45-117); Anion Gap 7.6 mEq/L (5.0-15.0); BUN Blood Urea Nitrogen 14 mg/dL (7-18); Bicarbonate 29 mEq/L (21-32); Bilirubin Direct < 0.2 mg/dL (0-0.2); Bilirubin Indirect, Calculated 0.1 mg/dL (0.2-0.8); Bilirubin Total 0.3 mg/dL (0.2-1.0); Globulin 4.3 g/dL (2.3-3.5); Glomerular Filtration Rate 68 ml/min (=/>90); Glucose Level 102 mg/dL (74-106); Lipase 26 U/L (13-75); Magnesium 2.1 mg/dL (1.6-2.4); NT PRO-BNP 84 pg/mL (<450); Potassium 3.6 mEq/L (3.5-5.1); Sodium Level 141 mEq/L (136-145); Troponin High Sensitivity 10.1 pg/mL (<58.9)
[2024-07-29 13:13] LABS: Blood Morphology Comment NOT SEEN (NOT SEEN); Differential Total Cells Count 100; Eosinophils 20 % (0-3); Lymphocytes 18 % (15-42); Monocytes 6 % (0-10); Platelet Estimate ADEQ; Segmented Neutrophils 52 % (40-80)
--- NOTE | 2024-07-29 13:23 | RAD REPORT ---
EXAMINATION: CT LUMBAR SPINE WITHOUT CONTRAST CLINICAL INDICATION: Back pain TECHNIQUE: Axial CT images were obtained through the lumbar spine in soft tissue and bone windows wit hout intravenous contrast. Coronal and Sagittal reformatted images were created from the data set. One or more of the following dose reduction techniques were used: Automated exposure control, adjustm ent of the mA and/ or kV according to patient size, and/or iterative reconstruction. Unless otherwise specified, incidental findings do not require dedicated imaging follow-up. COMPARISON: No prior exam. FINDINGS: For purposes of this dictation, it is assumed that there are 5 non rib-bearing lumbar type vertebrae, and the most caudal fully segmented lumbar vertebra is labeled L5. No fracture seen No dislocation. L1-2 unremarkable Slight posterior subluxation L2 on L3. Disc bulge and osteophytes L2-3 results in narrowing of the th ecal sac to 8.5 mm. Disc bulge, osteophytes, ligamentum flavum and L3-4 narrows the thecal sac 7 mm. Mild to moderate natanael rowing right neural foramina. Disc bulge, osteophytes and facet hypertrophy-5. Mild epidural lipomatosis. Thecal sac measures 3.5 m m. Moderate narrowing right neural foramina. L5-S1 disc is thinned. Vacuum phenomena is present. Disc bulge and osteophytes are noted. Ligamentum flavum and facet hypertrophy is seen. Marked narrowing of foramina bilaterally. Thecal sac measures 6 mm. 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
--- NOTE | 2024-07-29 13:37 | EDPHYS ---
Physician Documentation [facility] Name: Puneet Willis Age: 79 yrs Sex: Male : 1945 Arrival Date: 07/29/2024 Time: 11:36 Bed 6 Private MD: ED Physician Brennan Lam HPI: 07/29 12:47 This 79 yrs old Male presents to ER via Ambulatory with complaints of Back nohemi Pain, Cough, Anxiety. 12:47 The patient presents with pain that is chronic, with no known mechanism of injury. The nohemi symptoms are located in the low back. Onset: The symptoms/episode began/occurred 2 week(s) ago. The pain does not radiate. Associated signs and symptoms: The patient has no apparent associated signs or symptoms. The problem was sustained from unknown cause. Modifying factors: The patient symptoms are alleviated by remaining still, the patient symptoms are aggravated by any movement. Severity of symptoms: At their worst the symptoms were mild, in the emergency department the symptoms are unchanged. The patient has experienced similar episodes in the past, multiple times. Historical: - Allergies: 11:59 No Known Allergies; bp - PMHx: 11:59 Arthritis; Hypertension; bp - Immunization history:: Adult Immunizations up to date. - Infectious Disease History:: Denies. - Social history:: Smoking status: Patient denies any tobacco usage or history of. - Family history:: not pertinent. ROS: 12:47 Constitutional: Negative for fever, chills, and weight loss, Eyes: Negative for injury, nohemi pain, redness, and discharge, ENT: Negative for injury, pain, and discharge, Neck: Negative for injury, pain, and swelling, Cardiovascular: Negative for chest pain, palpitations, and edema, Abdomen/GI: Negative for abdominal pain, nausea, vomiting, diarrhea, and constipation, : Negative for injury, bleeding, discharge, and swelling, MS/Extremity: Negative for injury and deformity, Skin: Negative for injury, rash, and discoloration, Neuro: Negative for headache, weakness, numbness, tingling, and seizure, Psych: Negative for depression, anxiety, suicide ideation, homicidal ideation, and hallucinations, Allergy/Immunology: Negative for hives, rash, and allergies, Endocrine: Negative for neck swelling, polydipsia, polyuria, polyphagia, and marked weight changes, Hematologic/Lymphatic: Negative for swollen nodes, abnormal bleeding, and unusual bruising, 12:47 Respiratory: Positive for cough, with no reported sputum, 12:47 Back: Positive for decreased range of motion, pain at rest, pain with movement, of the lumbar area, Exam: 12:47 Constitutional: This is a well developed, well nourished patient who is awake, alert, nohemi and in no acute distress. Head/Face: Normocephalic, atraumatic. Eyes: Pupils equal round and reactive to light, extra-ocular motions intact. Lids and lashes normal. Conjunctiva and sclera are non-icteric and not injected. Cornea within normal limits. Periorbital areas with no swelling, redness, or edema. ENT: Nares patent. No nasal discharge, no septal abnormalities noted. Tympanic membranes are normal and external auditory canals are clear. Oropharynx with no redness, swelling, or masses, exudates, or evidence of obstruction, uvula midline. Mucous membranes moist. Neck: Trachea midline, no thyromegaly or masses palpated, and no cervical lymphadenopathy. Supple, full range of motion without nuchal rigidity, or vertebral point tenderness. No Meningismus. Chest/axilla: Normal chest wall appearance and motion. Nontender with no deformity. No lesions are appreciated. Cardiovascular: Regular rate and rhythm with a normal S1 and S2. No gallops, murmurs, or rubs. Normal PMI, no JVD. No pulse deficits. Abdomen/GI: Soft, non-tender, with normal bowel sounds. No distension or tympany. No guarding or rebound. No evidence of tenderness throughout. Male : Normal genitalia with no discharge or lesions. Skin: Warm, dry with normal turgor. Normal color with no rashes, no lesions, and no evidence of cellulitis. MS/ Extremity: Pulses equal, no cyanosis. Neurovascular intact. Full, normal range of motion., bilateral aka Neuro: Awake and alert, GCS 15, oriented to person, place, time, and situation. Cranial nerves II-XII grossly intact. Motor strength 5/5 in all extremities. Sensory grossly intact. Cerebellar exam normal. Normal gait. Psych: Awake, alert, with orientation to person, place and time. Behavior, mood, and affect are within normal limits. 12:47 Respiratory: the patient does not display signs of respiratory distress, Respirations: normal, no acute changes, Breath sounds: bronchial sounds, that are mild, are scattered, decreased breath sounds, that are mild, rhonchi, that are mild, are scattered, stridor, is not appreciated, + upper airway congestion. Respiratory rate: i6 13:39 ECG was reviewed by the Attending Physician. [facility] Vital Signs: 11:59 BP 167 / 87; Pulse 78; Resp 16; Temp 98; Pulse Ox 100% ; bp 13:13 BP 154 / 96; Pulse 76; Pulse Ox 98% ; am7 14:06 BP 135 / 74; Pulse 72; Resp 15; Pulse Ox 99% on R/A; ko1 MDM: 11:40 Medical Screening Exam initiated nohemi 13:34 Differential diagnosis: chronic back pain, Fatigue Fracture Obesity Osteoarthritis nohemi Scoliosis spinal injury, sprain, vertebral fracture. Data reviewed: vital signs, nurses notes, lab test result(s), EKG, radiologic studies, CT scan, plain films. Consideration of Admission/Observation Escalation of care including admission/observation considered. I considered the following discharge prescriptions or medication management in the emergency department Medications were administered in the Emergency Department. See MAR. Independent interpretation of the following test(s) in the Emergency Department EKG: See my EKG interpretation above. Test considered but Not performed: CT: no ct chest. Historians other than the Patient: pt well informed , dw in belarusian. Care significantly affected by the following chronic conditions: Hypertension, Obesity, oa. Counseling: I had a detailed discussion with the patient and/or guardian regarding the historical points, exam findings, and any diagnostic results supporting the discharge/admit diagnosis, the presence of at least one elevated blood pressure reading (>120/80) during this emergency department visit, lab results, radiology results, the need for outpatient follow up, for definitive care, a report specialist, a family practitioner, a neurologist. 07/29 11:42 Order name: Basic Metabolic Panel; Complete Time: 13: [facility] 07/29 11:42 Order name: CBC with Diff; Complete Time: 13: [facility] 07/29 11:42 Order name: LFT's; Complete Time: 13:31 [facility] 07/29 11:42 Order name: Magnesium; Complete Time: 13: [facility] 07/29 11:42 Order name: NT PRO-BNP; Complete Time: 13:31 [facility] 07/29 11:42 Order name: PT-INR; Complete Time: 13:31 [facility] 07/29 11:42 Order name: Troponin HS; Complete Time: 13:31 [facility] 07/29 11:42 Order name: Lipase; Complete Time: 13:31 [facility] 07/29 11:42 Order name: Flu; Complete Time: 13:31 [facility] 07/29 11:42 Order name: SARS RAPID; Complete Time: 13:31 [facility] 07/29 11:42 Order name: Urinalysis w/ reflexes [facility] 07/29 13:13 Order name: Manual Differential; Complete Time: 13:31 EDMS 07/29 11:42 Order name: XRAY Chest (1 view) [facility] 07/29 12:31 Order name: CT Lumbar Spine Wo Con; Complete Time: 13:31 [facility] 07/29 11:42 Order name: EKG; Complete Time: 11:42 [facility] 07/29 11:42 Order name: Cardiac monitoring; Complete Time: 13:14 [facility] 07/29 11:42 Order name: EKG - Nurse/Tech; Complete Time: 13:28 [facility] 07/29 11:42 Order name: IV Saline Lock; Complete Time: 13:14 [facility] 07/29 11:42 Order name: Labs collected and sent; Complete Time: 13:14 [facility] 07/29 11:42 Order name: O2 Per Protocol; Complete Time: 13:14 [facility] 07/29 11:42 Order name: O2 Sat Monitoring; Complete Time: 13:14 [facility] EC:39 Rate is 68 beats/min. Rhythm is regular. QRS [place] is Normal. MO interval is normal. QRS nohemi interval is normal. QT interval is normal. No Q waves. T waves are Normal. No ST changes noted. Clinical impression: Normal ECG and No evidence of ischemia. Interpreted by me. Reviewed by me. Administered Medications: 13:10 Drug: NS 0.9% IV 500 ml 500 ml IV at 1 bolus once; to be given as a bolus over 30 ko1 minutes Volume: 500 ml; Route: IV; Rate: 1 bolus; Site: right forearm; 14:05 Follow up: Response: No adverse reaction; IV Status: Completed infusion; IV Intake: ko1 500ml 13:10 Drug: Ondansetron IVP 4 mg IVP once; over 2 minutes Route: IVP; Site: right forearm; ko1 13:25 Follow up: Response: No adverse reaction ko1 13:12 Drug: Ketorolac IVP 15 mg IVP once Route: IVP; Site: right forearm; ko1 13:27 Follow up: Response: No adverse reaction ko1 13:14 Drug: Decadron - Dexamethasone IVP 10 mg IVP once Route: IVP; Site: right forearm; ko1 13:29 Follow up: Response: No adverse reaction ko1 13:45 Drug: AZITHromycin PO 500 mg PO once Route: PO; ko1 14:06 Follow up: Response: No adverse reaction; Medication administered at discharge. ko1 Disposition Summary: 07/29/24 13:37 Discharge Ordered Notes: Location: Home [facility] Problem: new nohemi Symptoms: have improved nohemi Condition: Stable nohemi Diagnosis - Low back pain nohemi - Strain of muscle, fascia and tendon of lower back nohemi - Cough nohemi Followup: nohemi - With: Private Physician - When: 2 - 3 days - Reason: Recheck today's complaints, Continuance of care, Re-evaluation by your physician Followup: [facility] - With: Paresh Carreno MD - When: 5 - 6 days - Reason: Recheck today's complaints, Re-evaluation by your physician Discharge Instructions: - Discharge Summary Sheet nohemi - Acute Back Pain, Adult nohemi - Chronic Back Pain nohemi - Musculoskeletal Pain nohemi - Cool Mist Vaporizer nohemi - Chronic Back Pain, Jrlw-[id number] nohemi - Cough, Adult, Xfpo-ur-[id number] nohemi - Cough, Adult [facility] Forms: - Medication Reconciliation Form [facility] - Antibiotic Education nohemi - Prescription Opioid Use nohemi - Patient Portal Instructions [facility] - Leadership Thank You Letter [facility] Prescriptions: - dexamethasone 4 mg Oral tablet - take 1 tablet ORAL route once daily; 5 tablet; Refills: 0, Product Selection [facility] Permitted - diclofenac sodium 25 mg Oral tablet, delayed release (enteric coated) - take 1 tablet ORAL route 4 times per day; 28 tablet; Refills: 0, Product nohemi Selection Permitted - Hydroxyzine HCl 25 mg Oral Tablet - take 1 tablet ORAL route every 6 hours As needed; 30 tablet; Refills: 0, [facility] Product Selection Permitted - Valium 2 mg Oral Tablet - take 1 tablet ORAL route every 8 hours As needed; 20 tablet; Refills: 0, [facility] Product Selection Permitted - Tessalon Perles 100 mg Oral capsule - take 2 capsule ORAL route every 8 hours As needed; 30 capsule; Refills: 0, [facility] Product Selection Permitted - Zithromax Z-Domenico 250 mg Oral tablet - take 1 tablet ORAL route as directed for 5 days Day 1 - take two (2) tablets nohemi one time. Day 2, 3, 4 , 5 take one (1) tablet once daily.; 6 tablet; Refills: 0, Product Selection Permitted Signatures: Dispatcher [employer] EDMS Brennan Lam MD MD cha Peltier, Brian, RN RN bp Jia Livingston RN RN ko1 Corrections: (The following items were deleted from the chart) 11:42 11:42 BASIC METABOLIC PANEL+C.LAB.BRZ ordered. EDMS EDMS 11:42 11:42 CBC+H.LAB.BRZ ordered. EDMS EDMS 11:42 11:42 HEPATIC FUNCTION+C.LAB.BRZ ordered. EDMS EDMS 11:42 11:42 MAGNESIUM+C.LAB.BRZ ordered. EDMS EDMS 11:42 11:42 PROBNP+C.LAB.BRZ ordered. EDMS EDMS 11:42 11:42 PROTIME (+INR)+COAG.LAB.BRZ ordered. EDMS EDMS 11:42 11:42 Troponin High Sensitivity+C.LAB.BRZ ordered. EDMS EDMS 11:42 11:42 LIPASE+C.LAB.BRZ ordered. EDMS EDMS 11:42 11:42 Influenza Screen (A \T\ B)+BA.LAB.BRZ ordered. EDMS EDMS 11:42 11:42 SARS-COV-2 Antigen Rapid+I.LAB.BRZ ordered. EDMS EDMS 11:42 11:42 Urinalysis+U.LAB.BRZ ordered. EDMS EDMS
--- NOTE | 2024-07-29 13:37 | ER ---
Nurse's Notes [facility] Name: Puneet Willis Age: 79 yrs Sex: Male : 1945 Arrival Date: 07/29/2024 Time: 11:36 Bed 6 Private MD: Diagnosis: Low back pain;Strain of muscle, fascia and tendon of lower back;Cough Presentation: 07/29 11:59 Chief complaint: Patient states: 5 MONTHS BACK PAIN, DENIES URINARY S/S. Coronavirus bp screen: At this time, the client does not indicate any symptoms associated with coronavirus-19. Ebola Screen: No symptoms or risks identified at this time. Initial Sepsis Screen: Does the patient meet any 2 criteria? No. Patient's initial sepsis screen is negative. Does the patient have a suspected source of infection? No. Patient's initial sepsis screen is negative. Risk Assessment: Do you want to hurt yourself or someone else? Patient reports no desire to harm self or others. Onset of symptoms is unknown. 11:59 Method Of Arrival: Ambulatory bp 11:59 Acuity: MICHAELA 3 ko1 Historical: - Allergies: 11:59 No Known Allergies; bp - PMHx: 11:59 Arthritis; Hypertension; bp - Immunization history:: Adult Immunizations up to date. - Infectious Disease History:: Denies. - Social history:: Smoking status: Patient denies any tobacco usage or history of. - Family history:: not pertinent. Screenin:30 [facility] ED Fall Risk Assessment (Adult) History of falling in the last 3 months, ko1 including since admission No falls in past 3 months (0 pts) Confusion or Disorientation No (0 pts) Intoxicated or Sedated No (0 pts) Impaired Gait No (0 pts) Mobility Assist Device Used No (0 pt) Altered Elimination No (0 pt) Score/Fall Risk Level 0 - 2 = Low Risk Oriented to surroundings, Maintained a safe environment, Educated pt \T\ family on fall prevention, incl call for assistance when getting out of bed, Assessed \T\ reinforced patient's understanding of fall precautions, Hourly rounding (assess needs \T\ fall precautionary measures) done. Abuse screen: Denies threats or abuse. Denies injuries from another. Nutritional screening: No deficits noted. Tuberculosis screening: No symptoms or risk factors identified. Assessment: 12:30 General: Appears in no apparent distress. Behavior is calm, cooperative, appropriate ko1 for age. Pain: Complains of pain in lumbar area. Neuro: Level of Consciousness is awake, alert, obeys commands, Oriented to person, place, time, situation, Appropriate for age. Cardiovascular: No deficits noted. Respiratory: Reports cough that is non-productive. GI: No deficits noted. : No deficits noted. EENT: No deficits noted. Derm: No deficits noted. Musculoskeletal: Reports pain in lumbar area. Vital Signs: 11:59 BP 167 / 87; Pulse 78; Resp 16; Temp 98; Pulse Ox 100% ; bp 13:13 BP 154 / 96; Pulse 76; Pulse Ox 98% ; am7 14:06 BP 135 / 74; Pulse 72; Resp 15; Pulse Ox 99% on R/A; ko1 ED Course: 11:38 Patient arrived in ED. mr 11:40 Brennan Lam MD is Attending Physician. nohemi 11:59 Triage completed. bp 11:59 Arm band placed on. bp 12:30 Patient has correct armband on for positive identification. Bed in low position. Call ko1 light in reach. Side rails up X 1. Provided Education on: labs, meds. Pulse ox on. NIBP on. 12:30 No provider procedures requiring assistance completed. ko1 12:34 Missed attempt(s): 20 gauge Bleeding controlled, band aid applied, catheter tip intact. ty 12:36 Mary Fong, SONI is Primary Nurse. me1 12:44 Initial lab(s) drawn, by tx, sent to lab. Inserted saline lock: 22 gauge in right ty forearm, using aseptic technique. Blood collected. Flushed with 10 mL NS. 12:49 XRAY Chest (1 view) In Process Unspecified. EDMS 12:53 CT Lumbar Spine Wo Con In Process Unspecified. EDMS 13:29 Warm blanket given. Verbal reassurance given. am7 13:29 EKG done, by ED staff, reviewed by Brennan Lam MD. am7 13:36 Paresh Carreno MD is Referral Physician. nohemi 14:05 Urinalysis w/ reflexes Sent. ko1 14:08 Jia Livingston, SONI is Primary Nurse. ko1 14:10 IV discontinued, intact, bleeding controlled, No redness/swelling at site. Pressure ko1 dressing applied. Administered Medications: 13:10 Drug: NS 0.9% IV 500 ml 500 ml IV at 1 bolus once; to be given as a bolus over 30 ko1 minutes Volume: 500 ml; Route: IV; Rate: 1 bolus; Site: right forearm; 14:05 Follow up: Response: No adverse reaction; IV Status: Completed infusion; IV Intake: ko1 500ml 13:10 Drug: Ondansetron IVP 4 mg IVP once; over 2 minutes Route: IVP; Site: right forearm; ko1 13:25 Follow up: Response: No adverse reaction ko1 13:12 Drug: Ketorolac IVP 15 mg IVP once Route: IVP; Site: right forearm; ko1 13:27 Follow up: Response: No adverse reaction ko1 13:14 Drug: Decadron - Dexamethasone IVP 10 mg IVP once Route: IVP; Site: right forearm; ko1 13:29 Follow up: Response: No adverse reaction ko1 13:45 Drug: AZITHromycin PO 500 mg PO once Route: PO; ko1 14:06 Follow up: Response: No adverse reaction; Medication administered at discharge. ko1 Medication: 14:06 VIS not applicable for this client. ko1 Intake: 14:05 IV: 500ml; Total: 500ml. ko1 Outcome: 13:37 Discharge ordered by MD. song 14:10 Discharged to home ambulatory, with family, ko1 14:10 Condition: good 14:10 Discharge instructions given to patient, family, Instructed on discharge instructions, follow up and referral plans. medication usage, Demonstrated understanding of instructions, follow-up care, medications, Prescriptions given X 5 14:11 Patient left the ED. ko1 Signatures: Dispatcher [employer] Brennan Tirado MD MD cha Rivera, Mary, Reg Reg mr Roland De Santiago, RN RN bp Jia Livingston RN RN ko1 Mary Fong RN RN 1 Alvino Jenkins Abigail am7 Corrections: (The following items were deleted from the chart) 13:04 11:59 Acuity: MICHAELA 5 bp ko1
--- NOTE | 2024-07-29 13:39 | RAD REPORT ---
Procedure: Chest Single View HISTORY: Cough COMPARISON: August 2023 FINDINGS: The lungs appear clear of acute infiltrate. No significant pleural effusion noted. The heart is normal size. IMPRESSION: No acute abnormality is displayed.
[2024-07-29] MEDS ORDERED: AZITHROMYCIN 250 MG TAB ONE (13:53)
[2024-07-29 14:15] LABS: Specific Gravity 1.022 (1.005-1.030); Sqamous Epithelial <5 /HPF (None Seen); Urine Bacteria None Seen /HPF (<20); Urine Bilirubin NEGATIVE (Negative); Urine Blood Negative (Negative); Urine Clarity Clear (Clear); Urine Color Light-Yellow (Yellow); Urine Culture Reflex Order NOT NEEDED; Urine Glucose NEGATIVE (Negative); Urine Ketones NEGATIVE (Negative); Urine Microscopic Reflex YN ORDER UMIC; Urine Mucus Slight /HPF (None Seen); Urine Nitrite NEGATIVE (Negative); Urine Protein NEGATIVE (Negative); Urine RBC <5 /HPF (None Seen); Urine Urobilinogen Normal (Normal); Urine WBC <5 /HPF (<5)
[2024-07-29 14:46] VITALS: TEMP 98
[2024-07-29 14:50] VITALS: BP 135/74; O2SAT 99
--- NOTE | 2024-07-30 14:40 | EKG ---
Test Date: 2024-07-29 Test Time: 13:24:08 Secondary Market Manager: AM MEASUREMENT RESULTS: Intervals: Rate: 68 PA: 166 QRSD: 74 QT: 410 QTc: 435 [place]: P: PA: 166 QRS: -14 T: 7 INTERPRETIVE STATEMENTS: Normal sinus rhythm Normal ECG Compared to ECG 08/16/2023 17:04:41 Left-axis deviation no longer present Left ventricular hypertrophy no longer present Electronically Signed On 07-30-24 14:39:00 CREDIT CONTROL ADMINISTRATOR by Jeffrey Hermosillo
== END 2024-07-29 14:11 | disposition home or self-care (01) ==
LOC: ER 11:36
DX: S39.012A Strain of muscle, fascia and tendon of lower back, initial encounter (principal); R05.9 Cough, unspecified; Z11.52 Encounter for screening for COVID-19
CPT/HCPCS: 96361; 93005; 85025; 81001; 80048; 36415; 83735; 85610; 80076; 84484; 83690; 83880; 87804 ×2; 72131; 71045; 96375; 96374; 99285; 87811; J1100; J2405; J7040